=== PATIENT | female | born 1940 | race Caucasian/White ===

== ENCOUNTER 2020-07-29 06:24 | Emergency (ER) | payer MEDICARE, SELFPAY ==
[2020-07-29] VITALS (24 sets, daily range): BP systolic 147–187; BP diastolic 76–94; PULSE 74–89; RESP 11–25; TEMP 36.4; O2SAT 60–100
--- NOTE | ~2020-07-29 | XR_ITS ---
EXAMINATION: XR chest 1V DATE: 07/29/2020 07:09 INDICATION: Altered mental status. TECHNIQUE: A single frontal view of the chest was obtained. COMPARISON: Chest single view 08/26/2018 FINDINGS: A calcified right lung nodule is consistent with old granulomatous disease. No pleural effu gay or pneumothorax. The heart size is normal. IMPRESSION: 1. No acute cardiopulmonary disease. Reviewed, dictated and finalized at location A. HING PATTERNMAKER
--- NOTE | ~2020-07-29 | CT_ITS ---
EXAMINATION: CT brain wo con DATE: 07/29/2020 07:09 INDICATION: Altered mental status. TECHNIQUE: Computed tomography (CT) of the head was performed without intravenous contrast. The mA wa s adjusted according to patient size. Iterative reconstruction technique was employed. The dose-lengt h product was 681.00 mGy-cm. COMPARISON: Head CT 08/26/2018 FINDINGS: There is no intracranial hemorrhage, acute infarction, or abnormal intracranial mass lesion . There are scattered areas of low attenuation in the cerebral white matter, which is within normal l imits for the patient's age. The ventricles are normal in size. The mastoid air cells are normal. The paranasal sinuses are clear. The orbits are normal. IMPRESSION: 1. Normal aging brain. Reviewed, dictated and finalized at location A. ACER OPERATOR IMPRESSION: 1. Normal aging brain.
[2020-07-29 07:00] LABS: Basophils Percent Auto 0.4 % (0.2-1.2); Eosinophils Absolute Auto 0.1 K/mm3 (0-0.3); Eosinophils Percent Auto 0.9 % (0-4.4); Hematocrit 34.8 % (37.0-47.0); Hemoglobin 11.8 g/dL (12.0-15.0); Immature Granulocyte Absolute 0.02 K/mm3 (0.00-0.031); Immature Granulocyte Percent A 0.2 % (0-0.5); Lymphocytes Absolute Auto 5.99 K/mm3 (0.9-3.2); Lymphocytes Percent Auto 62.2 % (18.3-44.2); Mean Corpuscular HGB Conc 33.9 g/dl (32-36); Mean Corpuscular Hemoglobin 32.7 pg (26-34); Mean Corpuscular Volume 96.4 fl (80-100); Mean Platelet Volume 9.5 fl (7.4-10.4); Monocytes Absolute Auto 0.4 K/mm3 (0.1-0.6); Monocytes Percent Auto 3.6 % (2.6-8.5); Neutrophils Absolute Auto 3.1 K/mm3 (1.3-6.7); Neutrophils Percent Auto 32.7 % (45.5-73.1); Platelet Count Result 129 k/mm3 (150-375); Red Blood Count 3.61 M/mm3 (4.2-5.4); Red Cell Distribution Width 13.6 % (11.5-14.5); White Blood Count 9.6 K/mm3 (4.5-10.0)
[2020-07-29 07:08] LABS: Anisocytosis 1+ (NORMAL); Ovalocytes 1+ (NORMAL); Platelet Estimate Adequate (Adequate)
[2020-07-29 07:10] LABS: Prothrombin Time 13.6 Seconds (11.1-14.7)
[2020-07-29 07:11] LABS: Partial Thromboplastin Time 29.6 SECONDS (22.3-36.8)
[2020-07-29 07:12] LABS: Albumin Level 3.9 g/dL (3.5-5.1); Alkaline Phosphatase 61 U/L (38-126); Anion Gap 3 mmol/L (8-16); Aspartate Amino Transferase 21 U/L (14-36); Blood Urea Nitrogen 19 mg/dL (7-17); Carbon Dioxide 35 mmol/L (22-30); Chloride 103 mmol/L (98-107); Estimated Glomerular Filt Rate > 60; Glucose 176 mg/dL (65-105); Lactic Acid Reflex 0.7 mmol/L (0.7-2.1); Sodium 141 mmol/L (137-145)
[2020-07-29 07:18] LABS: Alanine Aminotransferase < 4 U/L (4-35)
--- NOTE | 2020-07-29 07:23 | ED.AMS ---
HPI - Altered Mental Status General Chief Complaint: Altered Mental Status Stated Complaint: AMS Time Seen by Provider: 07/29/20 07:00 Source: EMS Mode of arrival: EMS Limitations: dementia History of Present Illness HPI narrative: This is 79 year old female with history of dementia who presents for evaluation of altered mental status for 2 days. Patient is able to state her name and that she is in a hospital. There is no one at bedside to state how she is confused. She denies any pain. She states she is here for a urine test as nursing staff is performing a straight catheterization. She denies nausea, vomiting, fever, chills, chest pain, shortness of breath. Related Data Home Medications Medication Instructions Recorded Confirmed carbidopa-levodopa 1 tablet PO BID 07/29/20 donepezil [Aricept] 10 mg PO HS 07/29/20 levothyroxine 25 mcg PO DAILY 07/29/20 loratadine 10 mg PO DAILY 07/29/20 Allergies Allergy/AdvReac Type Severity Reaction Status Date / Time No Known Allergies Allergy Mild Unverified 08/26/18 07:10 Review of Systems Review of Systems: All systems reviewed & are unremarkable except as noted in HPI and below Constitutional: Constitutional: Denies chills and Denies fever(s) Cardiovascular: Cardiovascular: Denies chest pain Respiratory: Respiratory: Denies cough and Denies dyspnea Gastrointestinal: Gastrointestinal: Denies abdominal pain, Denies diarrhea, Denies nausea and Denies vomiting Musculoskeletal: Musculoskeletal: Denies back pain Neurologic: Denies headache(s) [facility] Past Medical History Medical History (Updated 07/29/20 @ 10:16 by Felicita Bolaños MD) Dementia Hypothyroid Surgical History Surgical History (Updated 07/29/20 @ 07:31 by Felicita Bolaños MD) Surgical history unknown Social History Social History (Updated 07/29/20 @ 18:54 by Felicita Bolaños MD) Smoking status: Unknown if ever smoked Exam Const: General: no acute distress and alert Other: oriented to person, place HENMT: Head: normocephalic and atraumatic Face and sinus: face symmetric Mouth: Yes Normal oral and palatal mucosa present, Yes lip normal, Yes oropharynx normal and Yes moist mucous membranes Eyes: EOM: EOMs intact bilaterally Chest: Chest palpation & inspection: normal inspection of the chest Resp: Effort & Inspection: normal respiratory effort and no retractions Auscultation: clear to auscultation bilaterally Cardio: Rate: regular rate Rhythm: regular rhythm Heart sounds: no murmurs GI: GI Palp: Yes Soft to palpation, No Tenderness to palpation present (GI) and No Guarding due to palpation present (GI) Auscultation: normal bowel sounds Skin: General skin exam: normal color Rashes: no rashes Neuro: General: moves all extremities, no meningeal signs and CN's II-XI intact bilaterally Psych: Mental Status: mental status grossly normal Affect: normal affect Course Reevaluation(s) Reevaluation #1: I walked into room and patient was standing at end of bed without clothes on. Her bed was wet. I placed her in a chair. She was able to tell me she lives with her . Nursing staff was able to speak with patient's daughter who states patient has dementia and she has been on progressive decline. They think patient just got up set last night. They are not interested in placement at this time. Labs and imaging are unremarkable. Date: 07/29/20 Time: 09:56 Vital Signs Vital signs: Vital Signs Temperature 97.6 F 07/29/20 06:23 Pulse Rate 78 07/29/20 06:23 Respiratory Rate 18 07/29/20 06:23 Blood Pressure 167/78 H 07/29/20 06:23 Pulse Oximetry 100 07/29/20 06:23 Temperature 97.6 F 07/29/20 06:23 Pulse Rate 87 07/29/20 09:31 Respiratory Rate 17 07/29/20 09:31 Blood Pressure 177/86 H 07/29/20 09:31 Pulse Oximetry 60 L 07/29/20 07:30 MDM - Altered Mental Status Lab Data Attestation: I reviewed the patient's lab res
[2020-07-29 07:31] LABS: Add Urine Microscopic? YES; Appearance Urine Clear (Clear); Bilirubin Urine Negative (Negative); Blood Urine 1+ (Negative); Color Urine Yellow (Yellow); Glucose Urine UA Negative (Negative); Ketones Urine Negative (Negative); Leukocyte Esterase Ur Negative LEU/UL (Negative); Mucus Urine Rare /lpf; Nitrate Urine Negative (Negative); Protein Urine Negative (Negative); Specific Grav Ur 1.014 (1.001-1.035); Squamous Epithelial Cell Urine Rare /hpf (Few); WBC Urine 0-3 /hpf
[2020-07-29] MEDS: LACTATED RINGERS 1,000 ML 999 ML IV CONT (07:46)
[2020-07-29 07:59] LABS: Lipase 247 U/L (23-300)
--- NOTE | 2020-07-29 08:06 | ECG_ITS ---
Measurements Intervals [place] Rate: 86 P: 61 RI: 139 QRS: -43 QRSD: 93 T: 51 QT: 337 QTc: 404 Interpretive Statements SINUS RHYTHM LEFT AXIS DEVIATION DELAYED PRECORDIAL R/S TRANSITION BASELINE ARTIFACT- I, II, III, AVR, AVL, AVF BORDERLINE ECG Electronically Signed On 07-29-2020 11:16:30 CAREER COACH by Ezequiel Goddard D.O.
--- NOTE | 2020-07-29 09:40 | PC.NURSE ---
pts daughter toby contacted. states her mother has history of alzheimers that has been worsening. states behavior is worse at night. has talked about family that lives in her basement. per daughter pt was restless last night and was up all night turning all the lights all on in the house. states they have considered nh placement but states she does worse in unfamiliar surroundings.
--- NOTE | 2020-07-29 09:50 | PC.NURSE ---
pts daughter contacted. will send son to come worm picker pt for discharge.
== END 2020-07-29 10:45 | disposition home or self-care (01) ==
PROVIDERS: Emergency Medicine; Emergency Provider General Practice; PCP Nurse Practitioner Adult Health
DX: F03.90 Unspecified dementia, unspecified severity, without behavioral disturbance, psychotic disturbance, mood disturbance, and anxiety (principal); R41.0 Disorientation, unspecified; E03.9 Hypothyroidism, unspecified; R94.31 Abnormal electrocardiogram [ECG] [EKG]
CPT/HCPCS: 36415; 70450; 71045; 80053; 81001; 83605; 83690; 85025; 85610; 85730; 87040; 93005; 96360; 99284; J7120

== ENCOUNTER 2020-11-12 15:21 | Inpatient (IN) | payer MEDICARE, SELFPAY ==
--- NOTE | ~2020-11-12 | MR_ITS ---
EXAMINATION: MR brain/brain stem wo/w con EXAM DATE: 11/14/2020 13:18 INDICATION: Confusion, altered mental status. TECHNIQUE: Magnetic resonance imaging (MRI) of the brain/brain stem obtained without contrast. Sagit jose T1, axial diffusion, gradient echo (T2*), T1, T2, FLAIR sequences obtained. Patient was then inj ected with 9 cc intravenous Multihance contrast. Axial and coronal postcontrast T1 weighted sequences obtained. Comparison is made to prior examination from 12/03/2017. FINDINGS: There are no areas of restricted diffusion to suggest acute infarction. There is no acute hemorrhage seen on the T2*, a hemosiderin sensitive sequence. No intraparenchymal brain mass lesion. There is minimal periventricular and subcortical T2/FLAIR signal hyperintensity, nonspecific but pro bably related to small vessel ischemic disease (microangiopathy). There is mild to moderate promine nce of the sulci and ventricles related to cerebral atrophy. There are no extra-axial collections. Flow voids are seen in the cerebral arteries on the T2-weighted sequences consistent with their expe cted patency. The orbits are unremarkable. Soft tissue is unremarkable. There are no areas of abno rmal enhancement on the postcontrast images. IMPRESSION: 1. No acute intracranial findings. 2. Chronic age related findings. Reviewed, dictated and finalized at location B.
--- NOTE | ~2020-11-12 | XR_ITS ---
MODIFIED ESOPHAGRAM HISTORY: Dysphagia. TECHNIQUE: Modified barium esophagram was performed by speech pathologist under radiologist fluorosco pic guidance. This was recorded on tape. The exam was reviewed on 11/13/2020 14:12 CDT. The DAP for this procedure was 3.2 Gycm2. Fluoroscopy time is 3.8 minutes. FINDINGS: Lateral projection of the cervical spine demonstrates normal alignment. Oral stage within normal limits. During pharyngeal stage there is reduced laryngeal elevation, reduced tongue base ret raction, reduced pharyngeal squeeze, vallecular residue, piriform residue in laryngeal penetration. N o aspiration identified.. IMPRESSION: 1: Laryngeal penetration without aspiration. 2: Please refer to speech pathologist report for additional detail. Reviewed, dictated and finalized at location A.
--- NOTE | ~2020-11-12 | CT_ITS ---
EXAMINATION: CT brain wo con DATE: 11/12/2020 16:34 INDICATION: Altered mental status TECHNIQUE: Computed tomography (CT) of the head was performed without intravenous contrast. The mA wa s adjusted according to patient size. Iterative reconstruction technique was employed. Exam dose: 60 5.33 mGy-cm total exam DLP. COMPARISON: 07/29/2020 CT brain FINDINGS: Bilateral vertebral and carotid siphon internal carotid artery calcifications. There is non specific diminished attenuation of the cerebral white matter, likely due to chronic small vessel isch emic changes. No intracranial mass lesion or hemorrhage or cerebrovascular accident is detected. There is cerebral volume loss. No midline shift or mass effect effect. No subdural or epidural hematoma. No fracture or bone destruction of the cranial vault. The frontal sinuses are not developed. The paranasal sinuses otherwise are normally developed and aer ated. The mastoid air cells are normally developed and aerated. IMPRESSION: Cerebral atherosclerosis and chronic small vessel ischemic changes of the cerebral white matter No acute intracranial finding Reviewed, dictated and finalized at Location A. Reviewed, dictated and finalized at location A.
--- NOTE | ~2020-11-12 | XR_ITS ---
EXAMINATION: XR chest 1V EXAM DATE: 11/12/2020 16:44 INDICATION: Transient alteration of awareness, slurred speech. History dementia. TECHNIQUE: Portable AP frontal chest x-ray was obtained. Comparison is made to prior examination from 07/29/2020. FINDINGS: There is right upper lobe granuloma. The lungs are otherwise clear. There are no pleural e ffusions. Cardiac silhouette is prominent but magnified on this AP technique. There is no pneumoth orax suspected. The bones and soft tissues are unremarkable. IMPRESSION: No acute cardiopulmonary findings. Reviewed, dictated and finalized at location B.
--- NOTE | ~2020-11-12 | CT_ITS ---
EXAMINATION: CT cervical spine [facility] EXAM DATE: 11/13/2020 11:35 INDICATION: Unwitnessed fall. Stiff neck. TECHNIQUE: Spiral CT of the cervical spine was performed without contrast. Axial images were reviewe d. Coronal and sagittal reformatted images cervical spine were also reviewed. The dose-length produc t (DLP) for this examination was 120.45 mGy-cm. The exposure was tailored according to patient size (auto mA exposure control), and iterative reconstruction (ASIR) was used as additional dose reduction technique. Comparison is made to prior examination from 08/26/2018. FINDINGS: Thoracic kyphosis with exaggerated cervical lordosis. There is mild to moderate disc disea se at C4-5 and 5-6, mild at C2-3 and T3-4. There are no acute fractures identified. The odontoid proc ess is intact. The lateral masses of C1 line up with C2. Level by level evaluation: C2-C3: There is a mild diffuse disc bulge. Uncovertebral joint arthropathy: Mild right. Facet joint arthropathy: Moderate right. Neural foraminal stenosis: No stenosis. Central canal stenosis: No stenosis. C3-C4: Mild disc osteophyte complex asymmetric to the right. Uncovertebral joint arthropathy: Moderate right. Facet joint arthropathy: Moderate right, mild to moderate left. Neural foraminal stenosis: Moderate right. Central canal stenosis: Mild right sided. C4-C5: Mild disc osteophyte complex asymmetric to the right. Uncovertebral joint arthropathy: Moderate right, mild left. Facet joint arthropathy: Moderate to severe, but fused right, mild to moderate left. Neural foraminal stenosis: Mild to moderate right. Central canal stenosis: Mild right sided. C5-C6: There is mild posterior disc osteophyte complex. Uncovertebral joint arthropathy: Moderate bilateral. Facet joint arthropathy: Moderate to severe right, moderate left. Neural foraminal stenosis: Mild to moderate left, mild right. Central canal stenosis: Mild. C6-C7: Disc does not extend beyond the endplate margin. Uncovertebral joint arthropathy: Mild bilateral. Facet joint arthropathy: Moderate to severe right, moderate left. Neural foraminal stenosis: No stenosis. Central canal stenosis: No stenosis. C7-T1: Disc does not extend beyond the endplate margin. Uncovertebral joint arthropathy: None. Facet joint arthropathy: Moderate to severe bilateral. Neural foraminal stenosis: No stenosis. Central canal stenosis: No stenosis. Difficult to appreciate any significant interval change compared to 2019. IMPRESSION: 1. No acute cervical findings. 2. Some advanced arthropathy. Reviewed, dictated and finalized at location B.
--- NOTE | ~2020-11-12 | XR_ITS ---
EXAMINATION: XR barium swallow modified DATE: 11/18/2020 11:49 INDICATION: Aspiration, dysphagia TECHNIQUE: Modified barium esophagram was performed by myself to administered fluoroscopy, in conjun ction with speech pathologist who administered barium in varying consistencies as per speech patholog ist documentation. This was recorded on tape. A single fluoroscopic spot image was recorded. The DAP for this procedure was 1.333 Gycm2. Fluoroscopy exposure time was 2.1 minutes. FINDINGS: Oral stage: Adequate function. Pharyngeal phase: Adequate function. Laryngeal penetration: Present within liquids and pudding. Aspiration: None. Laryngeal sensitivity: Absent. IMPRESSION: Laryngeal penetration without definite aspiration identified. Please refer to speech path ologist findings and specific feeding recommendations. Reviewed, dictated and finalized at location A. IMPRESSION: Laryngeal penetration without definite aspiration identified. Pleas e refer to speech pathologist findings and specific feeding recommendations.
--- NOTE | ~2020-11-12 | US_ITS ---
EXAMINATION: US carotid duplex BI DATE: 11/14/2020 09:52 INDICATION: Confusion TECHNIQUE: Grayscale, color Doppler, and pulsed Doppler images of the cervical carotid arteries were obtained. The degree of vessel stenosis is placed in one of the following categories: normal, <50%, 5 0-69%, >=70% but less than near-occlusion, near-occlusion, or total occlusion. Note that percent sten osis relative to normal distal artery lumen diameter is indirectly measured from velocity measurement s as described by Carlos, et al. Radiology 2003; 229:340-346. Notes: Normal: Peak systolic velocity <125 centimeters/sec and no plaque <50%. Peak systolic velocity <125 ( EDV <40; ICA/CCA PSV ratio <2.0; used these factors only a tandem lesions or low cardiac output or co ntralateral disease) 50-69 %: PSV 125-230 (EDV 40-100; ratio 2-4) >= 70% but less than near occlusion: PSV greater than 230 (EDV > 100; ratio> 4.0) Near Occlusion: PSV that is variable; markedly narrowed lumen Occlusion: Absent flow on color/spectral Doppler and no lumen on gallo scale. COMPARISON: None. FINDINGS: RIGHT: The right common carotid artery (CCA) peak systolic velocity (PSV) is 60 cm/s. The right internal car otid artery (ICA) PSV is 58 cm/s. The right ICA end-diastolic velocity (EDV) is 12 cm/s. The right IC A/CCA PSV ratio is 1.0. The external carotid artery (ECA) PSV is 90 cm/s. There is antegrade flow in the right vertebral artery. LEFT: The left CCA PSV is 63 cm/s. The left ICA PSV is 80 cm/s. The left ICA EDV is 16 cm/s. The left ICA/C CA PSV ratio is 1.3. The ECA PSV is 60 cm/s. There is antegrade flow in the left vertebral artery. IMPRESSION: 1. Less than 50% stenosis in the right internal carotid artery by sonographic criteria. 2. Less than 50% stenosis in the left internal carotid artery by sonographic criteria. Reviewed, dictated and finalized at location A. IMPRESSION: 1. Less than 50% stenosis in the right internal carotid artery by sonographic marion galloway. 2. Less than 50% stenosis in the left internal carotid artery by sonographic ed lo.
[2020-11-12 15:27] VITALS: BP 107/49; PULSE 72; RESP 13; TEMP 36.3; O2SAT 98
--- NOTE | 2020-11-12 16:15 | ECG_ITS ---
Measurements Intervals [place] Rate: 71 P: 60 VA: 164 QRS: -19 QRSD: 96 T: 48 QT: 421 QTc: 457 Interpretive Statements SINUS RHYTHM NORMAL ECG Electronically Signed On 11-12-2020 17:11:10 CDT by Ezequiel Goddard D.O.
--- NOTE | 2020-11-12 16:41 | ED.GENADULT ---
HPI - General Adult General Chief complaint: Altered Mental Status Stated complaint: AMS,?FALL Time Seen by Provider: 11/12/20 16:02 Source: family and RN notes reviewed History of Present Illness HPI narrative: Patient is a 80 y/o female brought in by EMS for altered mental status. Patient is found by family around 3:00 PM on the floor. It's unknown how long she has been confused. Patient is unable to provide any history. Related Data Home Medications Medication Instructions Recorded Confirmed carbidopa-levodopa 1 tablet PO BID 07/29/20 11/12/20 donepezil [Aricept] 10 mg PO HS 07/29/20 11/12/20 levothyroxine 25 mcg PO DAILY 07/29/20 11/12/20 loratadine 10 mg PO DAILY 07/29/20 11/12/20 Allergies Allergy/AdvReac Type Severity Reaction Status Date / Time No Known Allergies Allergy Mild Verified 11/12/20 22:35 Review of Systems Review of Systems: ROS unobtainable: Yes unobtainable due to mental status [facility] Past Medical History Medical History Anemia Chronic idiopathic thrombocytopenia Closed right hip fracture (07/2018) Treated nonsurgically. Dementia Diet-controlled diabetes mellitus Hypothyroidism Parkinsons disease Tobacco use Surgical History Surgical History (Updated 11/12/20 @ 21:08 by Beatriz Garcia PA-C) Surgical history unknown Family History Family History (Updated 11/12/20 @ 22:08 by So [place] RN) Sibling Cancer Social History Social History (Updated 11/13/20 @ 01:05 by Beatriz Garcia PA-C) Social History: Surrogate decision maker: Angelito Graham, or Doris Midland, niece. Code status: Full code. Smoking status: Former smoker Alcohol intake: never Substance use: never Additional living arrangements comments: Resides in [place] with her . She tells me she has 5 children. 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 Spiritual care concerns: No Exam Const: General: no acute distress and well developed Orientation/consciousness: oriented to person, confusion and lethargic HENMT: Head: normocephalic Ears: external ears normal General nose exam: Normal external nose present Eyes: General: appearance normal, both eyes and all related structures Conjunctivae: conjunctivae normal Neck: Neck: normal visual inspection and full ROM Chest: Chest palpation & inspection: normal inspection of the chest and no tenderness Resp: Effort & Inspection: normal respiratory effort Auscultation: clear to auscultation bilaterally Cardio: Rate: regular rate Rhythm: regular rhythm GI: GI Palp: No abdominal tenderness and Yes Soft to palpation Skin: General skin exam: normal color and turgor normal Neuro: General: confusion and other (does not answer questions or follow commands) Cognition (Neuro): abnormal cognition Extrem: General: normal to inspection, full ROM and no pedal edema Psych: Affect: Blunted affect present Course Consultations Consultation #1: Discussed with ALIA Henderson, who agrees to admit. Date: 11/12/20 Time: 18:34 Vital Signs Vital signs: Vital Signs Temperature 36.3 C L 11/12/20 15:27 Pulse Rate 72 11/12/20 15:27 Respiratory Rate 13 11/12/20 15:27 Blood Pressure 107/49 L 11/12/20 15:27 Pulse Oximetry 98 11/12/20 15:27 Temperature 36.1 C L 11/13/20 08:00 Pulse Rate 75 11/13/20 08:00 Respiratory Rate 18 11/13/20 08:00 Blood Pressure 154/65 H 11/13/20 08:00 Pulse Oximetry 93 11/13/20 09:21 Medical Decision Making Vital Signs Vital Signs: Vital Signs Temperature 36.3 C L 11/12/20 15:27 Pulse Rate 72 11/12/20 15:27 Respiratory Rate 13 11/12/20 15:27 Blood Pressure 107/49 L 11/12/20 15:27 Pulse Oximetry 98 11/12/20 15:27 Temperature 36.1 C L 11/13/20 08:00 Pulse Rate 75 11/13/20 08:00 Respiratory Rate 18 11/13/20 08:00 Blood Pressure 154/65 H 11/13/20 08:00 Pulse Oximetry 93 11/13/20 09:21 Lab Data Result d
[2020-11-12 17:21] LABS: Basophils Percent Auto 0.3 % (0.2-1.2); Eosinophils Absolute Auto 0.1 K/mm3 (0-0.3); Eosinophils Percent Auto 0.8 % (0-4.4); Hematocrit 31.2 % (37.0-47.0); Immature Granulocyte Absolute 0.03 K/mm3 (0.00-0.031); Immature Granulocyte Percent A 0.3 % (0-0.5); Lymphocytes Absolute Auto 4.55 K/mm3 (0.9-3.2); Lymphocytes Percent Auto 49.8 % (18.3-44.2); Mean Corpuscular HGB Conc 32.1 g/dl (32-36); Mean Corpuscular Volume 96.6 fl (80-100); Mean Platelet Volume 9.5 fl (7.4-10.4); Monocytes Absolute Auto 0.3 K/mm3 (0.1-0.6); Monocytes Percent Auto 3.7 % (2.6-8.5); Neutrophils Absolute Auto 4.1 K/mm3 (1.3-6.7); Neutrophils Percent Auto 45.1 % (45.5-73.1); Platelet Count Result 145 k/mm3 (150-375); Red Blood Count 3.23 M/mm3 (4.2-5.4); Red Cell Distribution Width 14.7 % (11.5-14.5); White Blood Count 9.1 K/mm3 (4.5-10.0)
--- NOTE | 2020-11-12 17:25 | PC.NURSE ---
Provided update to patient's daughter Doris [phone]
[2020-11-12 17:30] LABS: Albumin Level 3.7 g/dL (3.5-5.1); Alkaline Phosphatase 89 U/L (38-126); Anion Gap 4 mmol/L (8-16); Aspartate Amino Transferase 18 U/L (14-36); Bilirubin,Total 1.3 mg/dL (0.2-1.3); Blood Urea Nitrogen 21 mg/dL (7-17); Calcium 8.9 mg/dL (8.4-10.2); Carbon Dioxide 30 mmol/L (22-30); Chloride 105 mmol/L (98-107); Estimated CRCL calculation 52 ml/min; Estimated Glomerular Filt Rate > 60; Glucose 216 mg/dL (65-105); Potassium 4.1 mmol/L (3.4-5.0); Sodium 139 mmol/L (137-145)
[2020-11-12 17:42] LABS: Atypical Lymphocytes Present; Smudge Cells FEW
[2020-11-12 17:49] VITALS: BP 136/66; PULSE 67; RESP 16; O2SAT 98
[2020-11-12 18:07] LABS: Alanine Aminotransferase < 4 U/L (4-35)
[2020-11-12 18:08] LABS: Add Urine Microscopic? YES; Appearance Urine Cloudy (Clear); Bacteria Urine 1+ /hpf; Bilirubin Urine Negative (Negative); Blood Urine 1+ (Negative); Color Urine Amber (Yellow); Glucose Urine UA 1+ mg/dL (Negative); Ketones Urine Trace mg/dL (Negative); Leukocyte Esterase Ur 3+ LEU/UL (Negative); Mucus Urine Few /lpf; Nitrate Urine Negative (Negative); Protein Urine 2+ mg/dL (Negative); Specific Grav Ur 1.024 (1.001-1.035); Squamous Epithelial Cell Urine Rare /hpf (Few); WBC Urine >75 /hpf
[2020-11-12 19:37] VITALS: BP 143/73; PULSE 67; RESP 13; O2SAT 98
[2020-11-12 22:00] VITALS: BP 145/63; PULSE 67; RESP 14; TEMP 35.8; O2SAT 99; BMI 19.5
[2020-11-12 22:13] VITALS: PULSE 67
--- NOTE | 2020-11-12 22:18 | ADMGEN ---
This patient, Chasity Graham, was admitted to Medical Room 255-01. Patient/family oriented to hospital policies and general routines including ID bracelet, bed and alarms, visiting hours, pain management, procedures, bathroom and other care routines, personal items, smoking policy, room service/diet, and visiting hours. Information on how to activate the Rapid Response Team has been discussed. Patient/Family are encouraged to report perceived risks to care and to ask questions if they do not understand what they are told or what they should do.
--- NOTE | 2020-11-12 22:45 | PM.IMHP ---
H&P: HPI History of Present Illness Date/Time: 11/12/20 22:45 Chief Complaint: Altered mental status, found down. Narrative: This is a 80-year-old female dementia, Parkinson's, diet-controlled diabetes, anemia, and hypothyroidism who presented to the emergency department earlier today via EMS from home for evaluation of altered mental status after she was found down on the ground at around 15:00. The patient is a poor historian and due to the late hour I have not been able to get a hold of family and thus a majority of the following history is obtained via a review of her electronic medical records. At baseline she is reportedly alert and oriented x4 but has chronically slurred speech. It is my understanding that she was found on the floor by a family member not long prior to arrival and they estimate she had been on the floor for approximately 30 minutes time. The patient tells me that she feels ?lousy? and remembers having a fall though she can not provide me with any specifics. She denies having injured herself in the fall but thinks she may have bumped her head. With further prompting she tells me ?I think I was dizzy? prior to the fall though she does not think that she had any loss of consciousness. She has no other complaints at this time specifically denies fever, chills, sweats, headache, neck pain, sore throat, rash, auditory and visual change (although she tells me that her vision is blurry on occasion) focal weakness, paresthesias, chest pain, pleuritic pain, palpitations, shortness of breath, nausea, vomiting, and diarrhea. She has mild dysuria but no hematuria, urinary frequency, or urgency. Review of Systems Review of Systems: Narrative: Twelve systems were reviewed with pertinent positives and negatives as per HPI. The accuracy of such is questionable however given her underlying dementia and increasing confusion from baseline. [facility] Past Medical History Medical History Anemia Chronic idiopathic thrombocytopenia Closed right hip fracture (07/2018) Treated nonsurgically. Dementia Diet-controlled diabetes mellitus Hypothyroidism Parkinsons disease Tobacco use Surgical History Surgical History (Updated 11/12/20 @ 21:08 by Beatriz Garcia PA-C) Surgical history unknown Family History Family History (Updated 11/12/20 @ 22:08 by So [place] RN) Sibling Cancer Social History Social History (Updated 11/13/20 @ 01:05 by Beatriz Garcia PA-C) Social History: Surrogate decision maker: Angelito Graham, or Doris Justin, niece. Code status: Full code. Smoking status: Former smoker Alcohol intake: never Substance use: never Additional living arrangements comments: Resides in [place] with her . She tells me she has 5 children. 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 Spiritual care concerns: No Meds Home Medications and Allergies Home Medications Medication Instructions Recorded Confirmed Type carbidopa-levodopa 1 tablet PO BID 07/29/20 History donepezil [Aricept] 10 mg PO HS 07/29/20 History levothyroxine 25 mcg PO DAILY 07/29/20 History loratadine 10 mg PO DAILY 07/29/20 History Allergies Allergy/AdvReac Type Severity Reaction Status Date / Time No Known Allergies Allergy Mild Verified 11/12/20 22:35 Vital Signs Vital Signs - 24 hr 11/12/20 15:27 11/12/20 17:49 11/12/20 19:37 Temperature 97.4 F L Pulse Rate 72 67 67 Respiratory Rate 13 16 13 Blood Pressure 107/49 L 136/66 143/73 H Pulse Oximetry 98 98 98 Exam Narrative: Exam Narrative: General: Thin, frail, chronically ill-appearing female sitting up in bed. Weight: 40.6 kilograms. BMI: 19.6. HEENT: Normocephalic, atraumatic. PERRL, EOMI. Sclerae anicteric. Mouth is extremely dry with chapped lips. Oropharynx not visualized. Fair dentition. Neck: The patient frequently extends her neck and looks upwards. Neck is somewhat stiff laxmieve
[2020-11-13] VITALS (9 sets, daily range): BP systolic 154–167; BP diastolic 65–88; PULSE 69–81; RESP 18–26; TEMP 35.9–37.1; O2SAT 93–100
[2020-11-13] MEDS: SODIUM CHLORIDE 0.9% IV 1,000 ML 100 ML IV CONT (01:40)
[2020-11-13 05:37] LABS: Mean Corpuscular HGB Conc 32.4 g/dl (32-36); Mean Corpuscular Hemoglobin 31.7 pg (26-34); Mean Platelet Volume 9.5 fl (7.4-10.4); Platelet Count Result 146 k/mm3 (150-375); Red Blood Count 3.47 M/mm3 (4.2-5.4); Red Cell Distribution Width 14.6 % (11.5-14.5)
[2020-11-13 05:46] LABS: Albumin Level 3.7 g/dL (3.5-5.1); Alkaline Phosphatase 81 U/L (38-126); Anion Gap 5 mmol/L (8-16); Aspartate Amino Transferase 20 U/L (14-36); Blood Urea Nitrogen 18 mg/dL (7-17); Calcium 8.9 mg/dL (8.4-10.2); Carbon Dioxide 32 mmol/L (22-30); Chloride 105 mmol/L (98-107); Estimated CRCL calculation 59 ml/min; Estimated Glomerular Filt Rate > 60; Glucose 162 mg/dL (65-105); Sodium 142 mmol/L (137-145)
[2020-11-13 11:16] LABS: Alanine Aminotransferase < 4 U/L (4-35)
--- NOTE | 2020-11-13 11:29 | PCPTNOTE ---
Attempted PT eval. Pt gone to X ray. Will try again at later time.
--- NOTE | 2020-11-13 11:58 | PCSTNOTE ---
Please refer to the Modified Barium Swallow Evaluation in the EMR.
--- NOTE | 2020-11-13 15:42 | PM.IMPN ---
Progress Note: A&P Assessment and Plan (1) Fall: Code(s): W19.XXXA - Unspecified fall, initial encounter Status: Acute Assessment and Plan: Patient found down at home. Brain CT showing no acute findings. Cervical CT also showing no acute findings. Patient doing well with therapy. Continue PT/OT. (2) Confusion: Code(s): R41.0 - Disorientation, unspecified Status: Acute Assessment and Plan: The patient presents to ED for evaluation of confusion after she was found down on the ground. Reportedly she is alert and oriented at 4 at baseline with slurred speech. Spoke with . He states patient is falling frequently and has had speech problems since a fall 1 year ago. Dtr not available. Consider new CVA given the dysphagia. Check MRI brain, etc. Neuro consult (3) Dysphagia: Code(s): R13.10 - Dysphagia, unspecified Status: Acute Assessment and Plan: She exhibited trace to severe penetration to above the VC with almost every consistency. She had signifincat penetration at the level of the epiglottis with mildly thick and moderately thick liquids. Patient appears to be at significant risk for aspiration and NPO status was recommended. CXR was clear so has been able to protect her airway. wasnt sure if patient would want a GTube. Start IV fluids. Dtr not available (4) Urinary tract infection: Qualifiers: Hematuria presence: without hematuria Urinary tract infection type: site unspecified Qualified Code(s): N39.0 - Urinary tract infection, site not specified Code(s): N39.0 - Urinary tract infection, site not specified Status: Acute Assessment and Plan: UA noted. UCx collected. Continue Rocephin (5) Elevated blood pressure reading: Code(s): R03.0 - Elevated blood-pressure reading, without diagnosis of hypertension Status: Acute Assessment and Plan: Patient's blood pressure was reviewed on 11/13. Blood pressure remains elevated at times. Patient may have had a CVA so will allow for elevated BP for now. Will continue to monitor (6) Diet-controlled diabetes mellitus: Code(s): E11.9 - Type 2 diabetes mellitus without complications Status: Acute Assessment and Plan: The patient's blood glucose was reviewed on 11/13. Not on medications at home for DM. Glucose remains well controlled. Start AccuCheks covering with sliding scale. Hypoglycemia protocol available as needed. (7) Dementia: Code(s): F03.90 - Unspecified dementia without behavioral disturbance Status: Acute Assessment and Plan: Patient with hx of dementia. Suspect this is worsening. Aricept on hold since she cannot swallow safely. (8) Hypothyroidism: Code(s): E03.9 - Hypothyroidism, unspecified Status: Acute Assessment and Plan: TSH okay. Rayn hold Synthroid for now. 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 No felt to be clinically significant. Follow (10) Parkinsons disease: Code(s): G20 - Parkinson's disease Status: Acute Assessment and Plan: Stable. Sinemet on hold. Resume when able. Subjective Date/time seen: 11/13/20 15:42 Interval history: 80yo female with dementia, DM and Parkinson here for altered mental status and being found down. Patient awake and alert but has garbled speech and thus unable to provide hx. She had a MBS today but had penetration of almost all consistencies to above the VC; ST recommended NPO status. Patikevinn was able to be up with therapy today. Review of Systems Review of Systems: ROS unobtainable: Yes unobtainable due to mental status Exam Narrative: Exam Narrative: AF 96.6 155/88 75 18 100% ra
[2020-11-13] MEDS: KCL 20 MEQ/D5/0.9% SOD CHL 1,000 ML 70 ML IV CONT (16:53)
[2020-11-13] MEDS: ASPIRIN 300 MG SUPPOSITORY RECTAL (16:54)
[2020-11-13 17:27] LABS: Glucose Point of Care 107 mg/dl (65-105)
[2020-11-13 22:24] LABS: Glucose Point of Care 143 mg/dl (65-105)
[2020-11-14] VITALS (7 sets, daily range): BP systolic 142–162; BP diastolic 55–88; PULSE 60–76; RESP 16–181; TEMP 36.1–37.5; O2SAT 96–100
--- NOTE | 2020-11-14 | ECHO_ITS ---
Patient Info Name: Chasity Graham Age: 80 years : 1940 Gender: Female Ht: 62 in Wt: 107 lbs BSA: 1.45 m2 HR: 71 bpm BP: 142 / 55 mmHg Heart Rhythm: Sinus Rhythm Technical Quality: Good Exam Date: 11/14/2020 11:33 AM Exam Location: [facility] Patient Status: Inpatient Admit Date: 11/12/2020 Staff Ordering Physician: Josue Dougherty MD Animal Therapist: William Isaacs, HILDACS, RT Attending Provider: Brittney Lane MD Exam Type: CA echo doppler color flow Study Info Indications R27.8 - Other lack of coordination Complete two-dimensional, color flow and Doppler transthoracic echocardiogram is performed. Strain analysis performed. Summary 1. Complete two-dimensional, color flow and Doppler transthoracic echocardiogram is performed. 2. Normal left ventricular size and thickness. Good left ventricular systolic function, estimated ejection fraction 65-70%. No focal wall motion abnormalities. Grade 1 diastolic dysfunction is present. Global longitudinal strain however is mildly diminished at-16% suggesting early systolic dysfunction. 3. Left atrial chamber dimension is severely enlarged. 4. Mild mitral regurgitation. 5. Dilated inferior vena cava with >50% collapse upon inspiration consistent with elevated right atrial pressure. 6. Normal sinus rhythm. Left Ventricle Left ventricular chamber dimension is normal. Left ventricular systolic function is normal, estimated at 65-70%. There is no increased left ventricular wall thickness. Left ventricular septal wall motion is normal. The left ventricular diastolic function is grade I diastolic dysfunction. Global longitudinal strain is mildly elevated at -16 %. Right Ventricle Right ventricular chamber dimension is normal. Right ventricular systolic function is normal. Left Atria Left atrial chamber dimension is severely enlarged. Right Atria Right atrial chamber dimension is normal. Aortic Valve The aortic valve is trileaflet. There is no aortic valve sclerosis. There is no aortic valve stenosis. There is no aortic valve regurgitation. Pulmonic Valve The pulmonic valve is normal. There is no pulmonic valve stenosis. There is no pulmonic regurgitation. Mitral Valve The mitral valve has normal leaflets. There is no mitral valve stenosis. There is mild mitral valve regurgitation. The mitral valve annulus is moderately calcified. Tricuspid Valve The tricuspid valve leaflets are normal. There is no significant tricuspid valve stenosis. There is trace tricuspid valve regurgitation. No pulmonary hypertension, estimated pulmonary arterial systolic pressure is Empty. Pericardium/Pleural The pericardium appears normal. There is no pericardial effusion. Inferior Vena Cava Dilated inferior vena cava with >50% collapse upon inspiration consistent with elevated right atrial pressure. Aorta The aortic root size at the sinus of Valsalva is normal. The prox ascending aorta size is normal. Left Ventricular Outflow Tract Name Value Normal LVOT 2D LVOT Diameter 2.1 cm LVOT Doppler LVOT Peak Gradient 4
[2020-11-14 05:32] LABS: Hematocrit 31.2 % (37.0-47.0); Hemoglobin 10.4 g/dL (12.0-15.0); Mean Corpuscular HGB Conc 33.3 g/dl (32-36); Mean Corpuscular Hemoglobin 31.8 pg (26-34); Mean Corpuscular Volume 95.4 fl (80-100); Mean Platelet Volume 9.4 fl (7.4-10.4); Platelet Count Result 131 k/mm3 (150-375); Red Blood Count 3.27 M/mm3 (4.2-5.4); Red Cell Distribution Width 14.6 % (11.5-14.5); White Blood Count 9.3 K/mm3 (4.5-10.0)
[2020-11-14 05:48] LABS: Anion Gap 5 mmol/L (8-16); Blood Urea Nitrogen 9 mg/dL (7-17); Calcium 8.7 mg/dL (8.4-10.2); Carbon Dioxide 28 mmol/L (22-30); Chloride 109 mmol/L (98-107); Creatine Kinase 31 U/L (30-135); Estimated CRCL calculation 59 ml/min; Estimated Glomerular Filt Rate > 60; Glucose 147 mg/dL (65-105); Potassium 3.8 mmol/L (3.4-5.0); Sodium 142 mmol/L (137-145)
[2020-11-14 05:50] LABS: Hemoglobin A1C 7.5 % (<5.7)
[2020-11-14] MEDS: KCL 20 MEQ/D5/0.9% SOD CHL 1,000 ML 70 ML IV CONT (08:24)
[2020-11-14] MEDS: ASPIRIN 300 MG SUPPOSITORY RECTAL (08:29)
[2020-11-14 08:32] LABS: Glucose Point of Care 116 mg/dl (65-105)
--- NOTE | 2020-11-14 10:04 | WPDNEURCNPN ---
Assessment and Plan Additional Plan ongoing history of Klippel medical problem along with the Parkinson's dementia she will need a supportive Consult date: 11/14/20 Time Seen: 11:00 HPI: Chasity Graham is a 80 year old female 80 years old admitted to the hospital for the complaints of change in the mental status in addition to the ongoing diagnosis of 1. Parkinson's disease 2. Diabetes mellitus 3. Hypothyroidism 4. Anemia she was brought to the ER by the EMS from the home for the complaints of change in the mental status she was reportedly found on the ground and again she was poor historian she reported that she is not feeling good, she has ongoing history of chronic idiopathic thrombocytopenia with anemia has sustain close right hip fracture in 2019 and also has ongoing diagnosis of dementia and Parkinson's disease has been receiving carbidopa levodopa 50/201 tablets b.i.d. in addition to donepezil 10 mg p.o. HS, evaluation up until now includes routine lab studies with normal WBC hemoglobin is only 20.4 and platelet count of 131 abnormal UA fairly normal chemistry, Doppler study of the carotid with less than 50% stenosis bilaterally modified barium swallow with laryngeal penetration without aspiration, CT of the cervical spine with advanced arthropathy, negative chest x-ray, negative CT scan of the head without any evidence of hydrocephalus or any chronic lesion, Review of Systems Review of Systems: All systems reviewed & are unremarkable except as noted in HPI and below PMFSH Past Medical History Medical History Anemia Chronic idiopathic thrombocytopenia Closed right hip fracture (07/2018) Treated nonsurgically. Dementia Diet-controlled diabetes mellitus Hypothyroidism Parkinsons disease Tobacco use Surgical History Surgical History Surgical history unknown Family History Family History Sibling Cancer Social History Social History Social History: Surrogate decision maker: Angelito Graham, or Doris Nhan, niece. Code status: Full code. Smoking status: Former smoker Alcohol intake: never Substance use: never Additional living arrangements comments: Resides in [place] with her . She tells me she has 5 children. 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 Spiritual care concerns: No Meds Home Medications and Allergies Home Medications Medication Instructions Recorded Confirmed Type carbidopa-levodopa 1 tablet PO BID 07/29/20 11/12/20 History donepezil [Aricept] 10 mg PO HS 07/29/20 11/12/20 History levothyroxine 25 mcg PO DAILY 07/29/20 11/12/20 History loratadine 10 mg PO DAILY 07/29/20 11/12/20 History Allergies Allergy/AdvReac Type Severity Reaction Status Date / Time No Known Allergies Allergy Mild Verified 11/12/20 22:35 Vital Signs Vital Signs - 24 hr 11/13/20 12:00 11/13/20 16:00 11/13/20 20:00 Temperature 35.9 C L 37.1 C 36.3 C L Pulse Rate 75 72 72 Respiratory Rate 18 18 18 Blood Pressure 155/88 H 167/72 H 157/72 H Pulse Oximetry 100 100 100 11/13/20 21:52 11/14/20 00:00 11/14/20 04:00 Temperature 36.4 C 36.1 C L Pulse Rate 70 60 Respiratory Rate 181 H 18 Blood Pressure 152/68 H 142/55 H Pulse Oximetry 99 96 98 11/14/20 08:00 Temperature 37.5 C Pulse Rate 72 Respiratory Rate 18 Blood Pressure 153/88 H Pulse Oximetry 98 Exam Narrative: Exam Narrative: revealed her to be awake alert head normocephalic with no cranial bruit year nose throat examination normal neck is supple with no cervical bruit no thyromegaly no lymphadenopathy heart regular with no murmur lungs clear to auscultation with decreased breath sounds abdomen is soft with normal bowel sounds neurological is she is awake alert pupils round regular feels the vision or extra full to finger confro
[2020-11-14 11:42] LABS: Free T4 Free Thyroxine Reflex 1.12 ng/dL (0.78-2.19)
--- NOTE | 2020-11-14 12:30 | PM.IMPN ---
Progress Note: A&P Assessment and Plan (1) Fall: Code(s): W19.XXXA - Unspecified fall, initial encounter Status: Acute Assessment and Plan: Patient found down at home. Brain CT showing no acute findings. Cervical CT also showing no acute findings. Patient doing well with therapy. Continue PT/OT. (2) Confusion: Code(s): R41.0 - Disorientation, unspecified Status: Acute Assessment and Plan: The patient presents to ED for evaluation of confusion after she was found down on the ground. Reportedly she is alert and oriented at 4 at baseline with slurred speech. Spoke with yesterday who stated the patient is falling frequently and has had speech problems since a fall 1 year ago. Spoke with Dtr today show stated patient has progressive dementia and PD. Consider new CVA given the dysphagia. MRI brain ordered. Neuro consult and appreciate their input. (3) Dysphagia: Code(s): R13.10 - Dysphagia, unspecified Status: Acute Assessment and Plan: She exhibited trace to severe penetration to above the VC with almost every consistency. She had significant penetration at the level of the epiglottis with mildly thick and moderately thick liquids. Patient appears to be at significant risk for aspiration and NPO status was recommended. CXR was clear so has been able to protect her airway. Continue IV fluids. Discussed with Dtr but possibly requiring GTube. Did discuss hospice if the family if they did not want the gTube. All questions answered. May need NGT for temporaizing measures. (4) Urinary tract infection: Qualifiers: Hematuria presence: without hematuria Urinary tract infection type: site unspecified Qualified Code(s): N39.0 - Urinary tract infection, site not specified Code(s): N39.0 - Urinary tract infection, site not specified Status: Acute Assessment and Plan: UA noted. UCx growing EColi senstive to Rocephin. Continue Rocephin (5) Elevated blood pressure reading: Code(s): R03.0 - Elevated blood-pressure reading, without diagnosis of hypertension Status: Acute Assessment and Plan: Patient's blood pressure was reviewed on 11/14 Blood pressure remains elevated at times. Patient may have had a CVA so will allow for elevated BP for now. Will continue to monitor (6) Diet-controlled diabetes mellitus: Code(s): E11.9 - Type 2 diabetes mellitus without complications Status: Acute Assessment and Plan: A1c 7.5. The patient's blood glucose was reviewed on 11/14. Not on medications at home for DM. Glucose remains well controlled. Continue AccuCheks covering with sliding scale. Hypoglycemia protocol available as needed. (7) Dementia: Code(s): F03.90 - Unspecified dementia without behavioral disturbance Status: Acute Assessment and Plan: Patient with hx of dementia that is progressive. Aricept on hold since she cannot swallow safely. (8) Hypothyroidism: Code(s): E03.9 - Hypothyroidism, unspecified Status: Acute Assessment and Plan: TSH okay. Will continue to hold Synthroid for now. 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 No felt to be clinically significant. Follow (10) Parkinsons disease: Code(s): G20 - Parkinson's disease Status: Acute Assessment and Plan: Stable. Sinemet on hold. Resume when able. Subjective Date/time seen: 11/14/20 12:30 Interval history: 80yo female with dementia, DM and Parkinson here for altered mental status and being found down. Patient awake and alert but has garbled speech and thus unable to provide hx. No issues overnight per RN. Review of Systems Review of Systems:
[2020-11-14 13:05] LABS: Glucose Point of Care 146 mg/dl (65-105)
[2020-11-14 16:52] LABS: Glucose Point of Care 120 mg/dl (65-105)
[2020-11-14 19:55] LABS: INR 1.1; Prothrombin Time 14.5 Seconds (11.1-14.7)
[2020-11-14 21:25] LABS: Glucose Point of Care 116 mg/dl (65-105)
[2020-11-15] VITALS (7 sets, daily range): BP systolic 135–160; BP diastolic 62–87; PULSE 65–79; RESP 14–22; TEMP 36–36.8; O2SAT 96–100
[2020-11-15] MEDS: KCL 20 MEQ/D5/0.9% SOD CHL 1,000 ML 70 ML IV CONT (05:17)
[2020-11-15 05:49] LABS: Hematocrit 30.9 % (37.0-47.0); Mean Corpuscular HGB Conc 32.4 g/dl (32-36); Mean Corpuscular Hemoglobin 31.4 pg (26-34); Mean Corpuscular Volume 97.2 fl (80-100); Mean Platelet Volume 9.5 fl (7.4-10.4); Platelet Count Result 117 k/mm3 (150-375); Red Blood Count 3.18 M/mm3 (4.2-5.4); Red Cell Distribution Width 14.6 % (11.5-14.5); White Blood Count 7.3 K/mm3 (4.5-10.0)
[2020-11-15 06:29] LABS: Albumin Level 3.2 g/dL (3.5-5.1); Anion Gap 4 mmol/L (8-16); Blood Urea Nitrogen 10 mg/dL (7-17); Calcium 8.5 mg/dL (8.4-10.2); Carbon Dioxide 29 mmol/L (22-30); Chloride 109 mmol/L (98-107); Estimated CRCL calculation 50 ml/min; Estimated Glomerular Filt Rate > 60; Glucose 146 mg/dL (65-105); Magnesium 1.8 mg/dL (1.6-2.3); Sodium 142 mmol/L (137-145)
[2020-11-15 07:00] LABS: Potassium 3.6 mmol/L (3.4-5.0)
--- NOTE | 2020-11-15 07:07 | WPDGICN ---
Assessment and Plan Assessment and plan (1) Dysphagia: Code(s): R13.10 - Dysphagia, unspecified Status: Acute Assessment and Plan: I explained to her how a feeding to works. She seems to comprehend some but probably not all of what I am telling her. I explained that we can give her all the nutrition and hydration she needs without her having to force herself to try to eat (2) Altered mental state: Qualifiers: Altered mental status type: unspecified Qualified Code(s): R41.82 - Altered mental status, unspecified Code(s): R41.82 - Altered mental status, unspecified Status: Acute Assessment and Plan: on top of her prior diagnoses of Parkinson's and dementia, she apparently has suffered some new neurologic insult. (3) Parkinsons disease: Code(s): G20 - Parkinson's disease Status: Acute Assessment and Plan: Parkinson's disease alone can resultant dysphagia and is probably a contributing factor GI Consult Note Consult date/time: 11/15/20 07:07 HPI: Chasity Graham is a 80 year old female Who was unable to swallow, she sustained a neurologic event and was found on the floor prior to coming to the hospital. She also suffers from Parkinson's and has dementia. She has been seen by Neurology. It is felt that she would benefit from gastrostomy tube because her inability to sustain her nutrition and hydration orally at this time. Review of Systems Review of Systems: All systems reviewed & are unremarkable except as noted in HPI and below PMFSH Past Medical History Medical History Anemia Chronic idiopathic thrombocytopenia Closed right hip fracture (07/2018) Treated nonsurgically. Dementia Diet-controlled diabetes mellitus Hypothyroidism Parkinsons disease Tobacco use Surgical History Surgical History Surgical history unknown Family History Family History Sibling Cancer Social History Social History Social History: Surrogate decision maker: Angelito Graham, or Doris Whitethorn, niece. Code status: Full code. Smoking status: Former smoker Alcohol intake: never Substance use: never Additional living arrangements comments: Resides in [place] with her . She tells me she has 5 children. 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 Spiritual care concerns: No Meds Home Medications and Allergies Home Medications Medication Instructions Recorded Confirmed Type carbidopa-levodopa 1 tablet PO BID 07/29/20 11/12/20 History donepezil [Aricept] 10 mg PO HS 07/29/20 11/12/20 History levothyroxine 25 mcg PO DAILY 07/29/20 11/12/20 History loratadine 10 mg PO DAILY 07/29/20 11/12/20 History Allergies Allergy/AdvReac Type Severity Reaction Status Date / Time No Known Allergies Allergy Mild Verified 11/12/20 22:35 Vital Signs Vital Signs - 24 hr 11/14/20 08:00 11/14/20 12:00 11/14/20 15:33 Temperature 37.5 C 36.6 C Pulse Rate 61 66 68 Respiratory Rate 18 16 Blood Pressure 153/88 H 162/78 H Pulse Oximetry 98 100 11/14/20 16:00 11/14/20 20:00 11/15/20 00:00 Temperature 36.6 C 36.1 C L Pulse Rate 71 76 71 Respiratory Rate 20 22 H Blood Pressure 153/72 H 143/71 H Pulse Oximetry 99 99 11/15/20 04:00 Temperature 36.3 C L Pulse Rate 66 Respiratory Rate 22 H Blood Pressure 135/85 Pulse Oximetry 97 Exam Const: General: cooperative; No acute distress Orientation/consciousness: oriented to person GI: GI Palp: No abdominal tenderness, Yes Soft to palpation, No Guarding due to palpation present (GI) and Yes No hepatosplenomegaly present Auscultation: normal bowel sounds Results Labs CBC & Chem 7: 11/15/20 05:24 11/15/20 05:24 Labs: Short CBC 11/15/20 Ran
[2020-11-15 08:56] LABS: Glucose Point of Care 133 mg/dl (65-105)
--- NOTE | 2020-11-15 09:13 | PM.IMPN ---
Progress Note: A&P Assessment and Plan (1) Fall: Code(s): W19.XXXA - Unspecified fall, initial encounter Status: Acute Assessment and Plan: Patient found down at home. Brain CT showing no acute findings. Cervical CT also showing no acute findings. Patient participating with therapy. Continue PT/OT. Out of bed (2) Confusion: Code(s): R41.0 - Disorientation, unspecified Status: Acute Assessment and Plan: The patient presents to ED for evaluation of confusion after she was found down on the ground. Reportedly she is alert and oriented at 4 at baseline with slurred speech. Dtr stated patient has progressive dementia and PD. MRI brain showing no acute findings. Symptoms all related to UTI? Neuro consulted and appreciate their input. Okay to stop neuro checks, ASA and telemetry. (3) Dysphagia: Code(s): R13.10 - Dysphagia, unspecified Status: Acute Assessment and Plan: She exhibited trace to severe penetration to above the VC with almost every consistency. She had significant penetration at the level of the epiglottis with mildly thick and moderately thick liquids. Patient appears to be at significant risk for aspiration and NPO status was recommended. MRI was fine so could be related to the UTI but patient still high risk even if she has some improvement with swallowing. CXR was clear so has been able to protect her airway. Continue IV fluids. Discussed with Dtr at length. After conferring with her family, she called in and requested to have GTube placed. GI consulted with plans for GTube placement later today. Dtr today decided to hold on GTube until she came in. Spoke with dtr and patient's about options. Offered NGT feeding for the weekend with repeat swallow study on Wednesday. Feroz requesting discharge. Patient on the schedule for tomorow for GTube if family agree. No decision was made this evening on how to proceed. She remains NPO with IV fluids. (4) Urinary tract infection: Qualifiers: Hematuria presence: without hematuria Urinary tract infection type: site unspecified Qualified Code(s): N39.0 - Urinary tract infection, site not specified Code(s): N39.0 - Urinary tract infection, site not specified Status: Acute Assessment and Plan: UA noted. UCx growing EColi senstive to Rocephin. Continue Rocephin (5) Elevated blood pressure reading: Code(s): R03.0 - Elevated blood-pressure reading, without diagnosis of hypertension Status: Acute Assessment and Plan: Patient's blood pressure was reviewed on 11/15 Blood pressure remains elevated at times. Patient has not had a CVA so we can add anti-HTN medications once GTube is in place. Will continue to monitor (6) Diet-controlled diabetes mellitus: Code(s): E11.9 - Type 2 diabetes mellitus without complications Status: Acute Assessment and Plan: A1c 7.5. The patient's blood glucose was reviewed on 11/15. Not on medications at home for DM. Glucose remains well controlled but currently NPO. Continue AccuCheks covering with sliding scale. Hypoglycemia protocol available as needed. (7) Dementia: Code(s): F03.90 - Unspecified dementia without behavioral disturbance Status: Acute Assessment and Plan: Patient with hx of dementia that is progressive. Aricept on hold since she cannot swallow safely. Resume once GTube in place (8) Hypothyroidism: Code(s): E03.9 - Hypothyroidism, unspecified Status: Acute Assessment and Plan: TSH okay. 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 B12 level normal. Will follow for now (10) Parkinsons disease: Code(s): G20 - Parkinson's disease
--- NOTE | 2020-11-15 10:23 | PC.NURSE ---
Spoke with daughter on the phone regarding PEG tube placement. Daughter wishes to be here before making the decision and consenting to PEG tube.
[2020-11-15 12:36] LABS: Glucose Point of Care 143 mg/dl (65-105)
[2020-11-15 17:27] LABS: Glucose Point of Care 134 mg/dl (65-105)
[2020-11-15 20:50] LABS: Glucose Point of Care 152 mg/dl (65-105)
[2020-11-16] VITALS (7 sets, daily range): BP systolic 108–166; BP diastolic 56–90; PULSE 70–83; RESP 16–22; TEMP 36–37.2; O2SAT 94–100
[2020-11-16 06:04] LABS: Glucose Point of Care 151 mg/dl (65-105)
[2020-11-16 06:13] LABS: Hematocrit 32.1 % (37.0-47.0); Hemoglobin 10.4 g/dL (12.0-15.0); Mean Corpuscular HGB Conc 32.4 g/dl (32-36); Mean Corpuscular Hemoglobin 31.5 pg (26-34); Mean Corpuscular Volume 97.3 fl (80-100); Mean Platelet Volume 9.7 fl (7.4-10.4); Platelet Count Result 115 k/mm3 (150-375); Red Cell Distribution Width 14.3 % (11.5-14.5); White Blood Count 7.7 K/mm3 (4.5-10.0)
[2020-11-16 06:14] LABS: Anion Gap 3 mmol/L (8-16); Blood Urea Nitrogen 10 mg/dL (7-17); Calcium 8.5 mg/dL (8.4-10.2); Carbon Dioxide 30 mmol/L (22-30); Chloride 109 mmol/L (98-107); Estimated CRCL calculation 50 ml/min; Estimated Glomerular Filt Rate > 60; Glucose 151 mg/dL (65-105); Potassium 3.7 mmol/L (3.4-5.0); Sodium 142 mmol/L (137-145)
--- NOTE | 2020-11-16 06:24 | WPDANESEPP ---
Anes - Eval Pre Procedure Procedure: Operation Date: 11/15/20 12:00 Proposed Procedures p Percutaneous Endoscopic Gastrostomy - Billy Marie MD Operation Date: 11/16/20 08:00 Proposed Procedures p Insertion Percutaneous Endoscopic Gastrostomy - Billy Marie MD Date/Time: 11/16/20 06:24 Pre Op Diagnosis: altered mental status, Dysphagia Patient Data Age: 80 Gender: F Height: 5 ft 2 in Weight: 48.6 kg Last Vital Signs Temp 96.8 F L 11/16/20 05:20 Pulse 78 11/16/20 05:20 Resp 22 H 11/16/20 05:20 BP 108/72 11/16/20 05:20 Pulse Ox 100 11/16/20 05:20 Allergies Allergy/AdvReac Type Severity Reaction Status Date / Time No Known Allergies Allergy Mild Verified 11/12/20 22:35 Home Medications Medication Instructions Recorded Confirmed Type carbidopa-levodopa 1 tablet PO BID 07/29/20 11/12/20 History donepezil [Aricept] 10 mg PO HS 07/29/20 11/12/20 History levothyroxine 25 mcg PO DAILY 07/29/20 11/12/20 History loratadine 10 mg PO DAILY 07/29/20 11/12/20 History Laboratory Tests 11/15/20 11/15/20 11/15/20 05:24 07:46 11:47 Sodium 142 mmol/L mmol/L (137-145) Potassium 3.6 mmol/L mmol/L (3.4-5.0) Chloride 109 mmol/L H mmol/L (98-107) Carbon Dioxide 29 mmol/L mmol/L (22-30) Anion Gap 4 mmol/L L mmol/L (8-16) BUN 10 mg/dL mg/dL (7-17) Creatinine 0.60 mg/dL L mg/dL (0.7-1.0) Estim Creat Clear Calc 50 ml/min ml/min Estimated GFR > 60 (59 - ) Glucose 146 mg/dL H mg/dL (65-105) POC Capillary Glucose 133 mg/dl H mg/dl 143 mg/dl H mg/dl (65-105) (65-105) Calcium 8.5 mg/dL mg/dL (8.4-10.2) Phosphorus 3.0 mg/dL mg/dL (2.5-4.5) Magnesium 1.8 mg/dL mg/dL (1.6-2.3) Albumin 3.2 g/dL L g/dL (3.5-5.1) 11/15/20 11/15/20 11/16/20 17:24 20:47 05:37 Sodium 142 mmol/L mmol/L (137-145) Potassium 3.7 mmol/L mmol/L (3.4-5.0) Chloride 109 mmol/L H mmol/L (98-107) Carbon Dioxide 30 mmol/L mmol/L (22-30) Anion Gap 3 mmol/L L mmol/L (8-16) BUN 10 mg/dL mg/dL (7-17) Creatinine 0.60 mg/dL L mg/dL (0.7-1.0) Estim Creat Clear Calc 50 ml/min ml/min Estimated GFR > 60 (59 - ) Glucose 151 mg/dL H mg/dL (65-105) POC Capillary Glucose 134 mg/dl H mg/dl 152 mg/dl H mg/dl (65-105) (65-105) Calcium 8.5 mg/dL mg/dL (8.4-10.2) Phosphorus Magnesium Albumin 11/16/20 06:02 Sodium Potassium Chloride Carbon Dioxide Anion Gap BUN Creatinine Estim Creat Clear Calc Estimated GFR Glucose POC Capillary Glucose 151 mg/dl H mg/dl (65-105) Calcium Phosphorus Magnesium Albumin Patient hx anesthesia problems: none Family hx anesthesia problems: none PMFSH Past Medical History Medical History Altered mental state Anemia Chronic idiopathic thrombocytopenia Closed right hip fracture (07/2018) Treated nonsurgically. Confusion Dementia Diet-controlled diabetes mellitus Dysphagia Elevated blood pressure reading Hypothyroidism Parkinsons disease Tobacco use Surgical History Surgical History Surgical history unknown Family History Family History Sibling Cancer Social History Social History Social History: Surrogate decision maker: Angelito Graham, or Doris Nhan, niece. Code status: Full code. Smoking status: Former smoker Alcohol intake: never Substance use: never Additional living arrangements comments: Resides in [place] with her . She tells me she has 5 children.
[2020-11-16 11:51] LABS: Glucose Point of Care 154 mg/dl (65-105)
[2020-11-16] MEDS: KCL 20 MEQ/D5/0.9% SOD CHL 1,000 ML 70 ML IV CONT (14:31)
--- NOTE | 2020-11-16 15:45 | PM.IMPN ---
Progress Note: A&P Assessment and Plan (1) Fall: Code(s): W19.XXXA - Unspecified fall, initial encounter Status: Acute Assessment and Plan: Patient found down at home. Brain CT showing no acute findings. Cervical CT also showing no acute findings. Patient participating with therapy. Continue PT/OT. Out of bed (2) Confusion: Code(s): R41.0 - Disorientation, unspecified Status: Acute Assessment and Plan: The patient presents to ED for evaluation of confusion after she was found down on the ground. Reportedly she is alert and oriented x4 at baseline with slurred speech. Daughter reports progressive dementia and states ?she has good days and bad days? MRI brain showing no acute findings. Symptoms may be related to UTI. She has been evaluated by neurology who recommends supportive care. Neuro checks, aspirin, telemetry discontinued. (3) Dysphagia: Code(s): R13.10 - Dysphagia, unspecified Status: Acute Assessment and Plan: She exhibited trace to severe penetration to above the VC with almost every consistency. She had significant penetration at the level of the epiglottis with mildly thick and moderately thick liquids. Patient appears to be at significant risk for aspiration and NPO status was recommended. MRI was fine so could be related to the UTI but patient still high risk even if she has some improvement with swallowing. CXR was clear so has been able to protect her airway. There was lengthy discussion between family and prior provider regarding G-tube placement given NPO status. Family has ultimately decided not to proceed with G-tube. At this time would like to proceed with partial parenteral nutrition and plan to repeat swallow study on Wednesday. Continue NPO at this time. (4) Urinary tract infection: Qualifiers: Hematuria presence: without hematuria Urinary tract infection type: site unspecified Qualified Code(s): N39.0 - Urinary tract infection, site not specified Code(s): N39.0 - Urinary tract infection, site not specified Status: Acute Assessment and Plan: UA noted. UCx growing EColi senstive to Rocephin. Continue Rocephin. PPN will need to be paused during administration of Rocephin. (5) Elevated blood pressure reading: Code(s): R03.0 - Elevated blood-pressure reading, without diagnosis of hypertension Status: Acute Assessment and Plan: Patient's blood pressure was reviewed on 11/16 Blood pressure is stable today at 108/72. She has had some elevated blood pressure readings.. Patient has not had a CVA so will consider addition of antihypertensives when no longer NPO/further dietary recommendations are made. Continue to monitor BP trends (6) Diet-controlled diabetes mellitus: Code(s): E11.9 - Type 2 diabetes mellitus without complications Status: Acute Assessment and Plan: A1c 7.5. The patient's blood glucose was reviewed on 11/16. Not on medications at home for DM. Glucose remains well controlled but currently NPO. Continue AccuCheks covering with sliding scale. Hypoglycemia protocol available as needed. (7) Dementia: Code(s): F03.90 - Unspecified dementia without behavioral disturbance Status: Acute Assessment and Plan: Patient with hx of dementia that is progressive. Aricept on hold since she cannot swallow safely. Resume when clinically appropriate (8) Hypothyroidism: Code(s): E03.9 - Hypothyroidism, unspecified Status: Acute Assessment and Plan: TSH okay. 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 B12 level normal. Will follow for now (10) Parkinsons disease: Code(s): G20 - Parkinson's disease Status: Acute
[2020-11-16 17:00] LABS: Hematocrit 36.1 % (37.0-47.0); Hemoglobin 11.8 g/dL (12.0-15.0); Mean Corpuscular HGB Conc 32.7 g/dl (32-36); Mean Corpuscular Volume 94.8 fl (80-100); Mean Platelet Volume 9.4 fl (7.4-10.4); Platelet Count Result 121 k/mm3 (150-375); Red Blood Count 3.81 M/mm3 (4.2-5.4); Red Cell Distribution Width 14.3 % (11.5-14.5); White Blood Count 7.4 K/mm3 (4.5-10.0)
[2020-11-16 17:12] LABS: Partial Thromboplastin Time 29.7 SECONDS (22.3-36.8)
[2020-11-16 17:13] LABS: Alanine Aminotransferase 9 U/L (4-35); Alkaline Phosphatase 77 U/L (38-126); Anion Gap 6 mmol/L (8-16); Aspartate Amino Transferase 20 U/L (14-36); Bilirubin,Total 1.1 mg/dL (0.2-1.3); Blood Urea Nitrogen 8 mg/dL (7-17); Calcium 9.2 mg/dL (8.4-10.2); Carbon Dioxide 30 mmol/L (22-30); Chloride 107 mmol/L (98-107); Estimated CRCL calculation 50 ml/min; Estimated Glomerular Filt Rate > 60; Glucose 174 mg/dL (65-105); Magnesium 1.7 mg/dL (1.6-2.3); Potassium 3.9 mmol/L (3.4-5.0); Sodium 143 mmol/L (137-145)
[2020-11-16 17:20] LABS: Transferrin 175 mg/dL (206-381)
[2020-11-16 17:27] LABS: Band Neutrophils Percent 3 % (0-6); Lymphocytes Absolute Manual 4.21 K/mm3 (1.1-4.5); Monocytes Absolute Manual 0.14 K/mm3 (0.1-0.90); Monocytes Percent Manual 2 % (3-9); Neutrophils Absolute Manual 3.03 K/mm3 (1.7-7.2); Neutrophils Percent Manual 38 % (46-73); Total Cells Counted 100
[2020-11-16 17:28] LABS: Platelet Estimate Decreased (Adequate)
[2020-11-16 18:10] LABS: Glucose Point of Care 159 mg/dl (65-105)
[2020-11-16] MEDS: AMINO ACIDS 4.25%/D5W/LYTES/CA 2,000 ML 80 ML IV CONT (18:57)
[2020-11-17 00:08] LABS: Glucose Point of Care 177 mg/dl (65-105)
[2020-11-17 01:06] VITALS: BP 162/78; PULSE 79; RESP 20; TEMP 36.2; O2SAT 99
[2020-11-17 05:27] LABS: Hematocrit 32.9 % (37.0-47.0); Mean Corpuscular HGB Conc 33.4 g/dl (32-36); Mean Corpuscular Hemoglobin 31.8 pg (26-34); Mean Corpuscular Volume 95.1 fl (80-100); Mean Platelet Volume 9.4 fl (7.4-10.4); Platelet Count Result 111 k/mm3 (150-375); Red Blood Count 3.46 M/mm3 (4.2-5.4); Red Cell Distribution Width 14.1 % (11.5-14.5); White Blood Count 7.2 K/mm3 (4.5-10.0)
[2020-11-17 05:46] LABS: Anion Gap 5 mmol/L (8-16); Blood Urea Nitrogen 13 mg/dL (7-17); Calcium 9.1 mg/dL (8.4-10.2); Carbon Dioxide 29 mmol/L (22-30); Chloride 106 mmol/L (98-107); Estimated CRCL calculation 59 ml/min; Estimated Glomerular Filt Rate > 60; Glucose 193 mg/dL (65-105); Phosphorus 3.6 mg/dL (2.5-4.5); Potassium 3.7 mmol/L (3.4-5.0); Sodium 140 mmol/L (137-145)
[2020-11-17 06:00] VITALS: BP 149/66; PULSE 77; RESP 20; TEMP 36.4; O2SAT 98
[2020-11-17] MEDS: LEVOTHYROXINE SODIUM INJ 100 MCG/5 ML VIAL 12.5 MCG IV PUSH (06:46)
[2020-11-17 06:51] LABS: Glucose Point of Care 195 mg/dl (65-105)
[2020-11-17] MEDS: FAT EMULSIONS IV 20% 250 ML 20.83 ML IVPB (09:01)
[2020-11-17 10:00] VITALS: BP 143/73; PULSE 81; RESP 18; TEMP 36.1; O2SAT 100
--- NOTE | 2020-11-17 11:39 | PM.IMPN ---
Progress Note: A&P Assessment and Plan (1) Fall: Code(s): W19.XXXA - Unspecified fall, initial encounter Status: Acute Assessment and Plan: Patient found down at home. Brain CT showing no acute findings. Cervical CT also showing no acute findings. Patient participating with therapy. Continue PT/OT. Out of bed (2) Confusion: Code(s): R41.0 - Disorientation, unspecified Status: Acute Assessment and Plan: The patient presents to ED for evaluation of confusion after she was found down on the ground. Reportedly she is alert and oriented x4 at baseline with slurred speech. Daughter reports progressive dementia and states ?she has good days and bad days.? MRI brain showing no acute findings. Symptoms may be worsened by UTI. She has been evaluated by neurology who recommends supportive care. Neuro checks, aspirin, telemetry discontinued. (3) Dysphagia: Code(s): R13.10 - Dysphagia, unspecified Status: Acute Assessment and Plan: She exhibited trace to severe penetration to above the VC with almost every consistency. She had significant penetration at the level of the epiglottis with mildly thick and moderately thick liquids. Patient appears to be at significant risk for aspiration and NPO status was recommended. MRI was fine so could be related to the UTI but patient still high risk even if she has some improvement with swallowing. CXR was clear so has been able to protect her airway. There was lengthy discussion between family and prior provider regarding G-tube placement given NPO status. I had a long discussion with daughterDoris, on 11/16 who reports family has ultimately decided not to proceed with G-tube. At this time would like to proceed with partial parenteral nutrition and plan to repeat swallow study tomorrow. PPN with lipids started 11/16. (4) Urinary tract infection: Qualifiers: Hematuria presence: without hematuria Urinary tract infection type: site unspecified Qualified Code(s): N39.0 - Urinary tract infection, site not specified Code(s): N39.0 - Urinary tract infection, site not specified Status: Acute Assessment and Plan: UA noted. UCx growing EColi senstive to Rocephin. Continue Rocephin. PPN will need to be paused during administration of Rocephin. (5) Elevated blood pressure reading: Code(s): R03.0 - Elevated blood-pressure reading, without diagnosis of hypertension Status: Acute Assessment and Plan: Patient's blood pressure was reviewed on 11/17 Blood pressure is stable today at 149/66. She has had some elevated blood pressure readings. Patient has not had a CVA so will consider addition of antihypertensives when no longer NPO/further dietary recommendations are made. Continue to monitor BP trends (6) Diet-controlled diabetes mellitus: Code(s): E11.9 - Type 2 diabetes mellitus without complications Status: Acute Assessment and Plan: A1c 7.5. The patient's blood glucose was reviewed on 11/17. Not on medications at home for DM. Glucose remains well controlled but currently NPO. Continue AccuCheks covering with sliding scale. Hypoglycemia protocol available as needed. (7) Dementia: Code(s): F03.90 - Unspecified dementia without behavioral disturbance Status: Acute Assessment and Plan: Patient with hx of dementia that is progressive. Aricept on hold since she cannot swallow safely. Resume when clinically appropriate (8) Hypothyroidism: Code(s): E03.9 - Hypothyroidism, unspecified Status: Acute Assessment and Plan: TSH okay. 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 B12 level normal. Will follow for now (10) Parkinsons disease:
[2020-11-17 12:08] LABS: Glucose Point of Care 221 mg/dl (65-105)
[2020-11-17] MEDS: INSULIN ASPART (*BKC) 100 UNITS/ML SUB-Q (12:17)
[2020-11-17 14:00] VITALS: BP 158/78; PULSE 78; RESP 20; TEMP 36.4; O2SAT 100
--- NOTE | 2020-11-17 14:27 | PCPTNOTE ---
Went and checked on patient for therapy. Per RN patient is not oriented and going down hill. She states that patient will not do anything and family refused a feeding tube. RN and therapist agree to hold off on therapy this date due to decline. Will reassess tomorrow to see if she is still appropriate for therapy.
[2020-11-17 17:33] LABS: Glucose Point of Care 183 mg/dl (65-105)
[2020-11-17 18:00] VITALS: BP 158/82; PULSE 78; RESP 18; TEMP 37.1; O2SAT 100
[2020-11-17 18:22] LABS: Triglycerides 116 mg/dL (<150)
[2020-11-17] MEDS: AMINO ACIDS 4.25%/D5W/LYTES/CA 2,000 ML 80 ML IV CONT (18:31)
[2020-11-17 22:00] VITALS: BP 164/67; PULSE 75; RESP 22; TEMP 36.7; O2SAT 97
[2020-11-18 00:10] LABS: Glucose Point of Care 176 mg/dl (65-105)
[2020-11-18 02:00] VITALS: BP 125/64; PULSE 69; RESP 22; TEMP 35.9; O2SAT 90
[2020-11-18 05:29] LABS: Basophils Percent Auto 0.2 % (0.2-1.2); Eosinophils Absolute Auto 0.1 K/mm3 (0-0.3); Eosinophils Percent Auto 0.7 % (0-4.4); Hemoglobin 10.9 g/dL (12.0-15.0); Immature Granulocyte Absolute 0.03 K/mm3 (0.00-0.031); Immature Granulocyte Percent A 0.4 % (0-0.5); Lymphocytes Absolute Auto 4.07 K/mm3 (0.9-3.2); Lymphocytes Percent Auto 50.7 % (18.3-44.2); Mean Corpuscular HGB Conc 32.1 g/dl (32-36); Mean Corpuscular Hemoglobin 31.1 pg (26-34); Mean Corpuscular Volume 96.9 fl (80-100); Mean Platelet Volume 9.4 fl (7.4-10.4); Monocytes Absolute Auto 0.5 K/mm3 (0.1-0.6); Monocytes Percent Auto 5.6 % (2.6-8.5); Neutrophils Absolute Auto 3.4 K/mm3 (1.3-6.7); Neutrophils Percent Auto 42.4 % (45.5-73.1); Platelet Count Result 109 k/mm3 (150-375); Red Blood Count 3.51 M/mm3 (4.2-5.4); Red Cell Distribution Width 14.4 % (11.5-14.5)
[2020-11-18 05:38] LABS: Prothrombin Time 14.1 Seconds (11.1-14.7)
[2020-11-18 05:50] LABS: Alanine Aminotransferase 7 U/L (4-35); Albumin Level 3.6 g/dL (3.5-5.1); Alkaline Phosphatase 57 U/L (38-126); Anion Gap 5 mmol/L (8-16); Aspartate Amino Transferase 14 U/L (14-36); Blood Urea Nitrogen 22 mg/dL (7-17); Calcium 8.9 mg/dL (8.4-10.2); Carbon Dioxide 31 mmol/L (22-30); Chloride 102 mmol/L (98-107); Estimated CRCL calculation 44 ml/min; Estimated Glomerular Filt Rate > 60; Glucose 170 mg/dL (65-105); Magnesium 1.9 mg/dL (1.6-2.3); Phosphorus 4.4 mg/dL (2.5-4.5); Potassium 4.3 mmol/L (3.4-5.0); Sodium 138 mmol/L (137-145)
[2020-11-18] MEDS: LEVOTHYROXINE SODIUM INJ 100 MCG/5 ML VIAL 12.5 MCG IV PUSH (05:57)
[2020-11-18 05:58] LABS: Transferrin 155 mg/dL (206-381)
[2020-11-18 06:00] VITALS: BP 123/103; PULSE 57; RESP 22; TEMP 36.1; O2SAT 95
[2020-11-18 06:15] LABS: Glucose Point of Care 165 mg/dl (65-105)
[2020-11-18 10:00] VITALS: BP 128/58; PULSE 67; RESP 20; TEMP 37; O2SAT 100
--- NOTE | 2020-11-18 10:33 | WPDNEUROPN ---
Progress Note: A&P Additional Plan will continue the treatment as such neurologically with ongoing supportive physical therapy and supervision as far as the left atrial chamber enlargement is concerned considering the age of the patient I will recommend to continue her on aspirin until and unless the engineer fishing vessel consider further intervention Review of Systems Review of Systems: All systems reviewed & are unremarkable except as noted in HPI and below Exam Const: General: cooperative, comfortable and no acute distress Nutritional Appearance: thin Orientation/consciousness: oriented to person HENMT: Head: normal to inspection Ears: hearing grossly normal bilaterally General nose exam: Normal external nose present Face and sinus: normal facial exam Mouth: Yes Normal oral and palatal mucosa present Eyes: General: appearance normal, both eyes and all related structures Neck: Neck: full ROM Resp: Effort & Inspection: able to speak in complete sentences Auscultation: clear to auscultation bilaterally Neuro: General: oriented to person Cranial nerves: Yes CN's II-XII intact bilaterally Cognition (Neuro): abnormal cognition Speech: dysarthria Motor exam (neuro): Pronator motor function not present and Abnormal motor strength present Deep tendon reflexes (DTR's): Right triceps reflex intensity grade: 1+, Left triceps reflex intensity grade: 1+, Rt Biceps (C5, C6): 1+, Left biceps reflex intensity grade: 1+, Right brachioradialis reflex intensity grade: 1+, Left brachioradialis reflex intensity grade: 1+, Right patellar reflex intensity grade: 1+, Left patellar reflex intensity grade: 1+, Right ankle reflex intensity grade: 1+ and Left ankle reflex intensity grade: 1+ Plantar Reflex Responses: downgoing: bilateral Psych: Appearance: grossly normal Objective Data Vital Signs Vital Signs: Vital Signs - 24 hr 11/17/20 14:00 11/17/20 18:00 11/17/20 22:00 Temperature 36.4 C L 37.1 C 36.7 C Pulse Rate 78 78 75 Respiratory Rate 20 18 22 H Blood Pressure 158/78 H 158/82 H 164/67 H Pulse Oximetry 100 100 97 11/18/20 02:00 11/18/20 06:00 Temperature 35.9 C L 36.1 C L Pulse Rate 69 57 L Respiratory Rate 22 H 22 H Blood Pressure 125/64 123/103 H Pulse Oximetry 90 95 Intake/Output Intake/Output: Intake & Output 06/1811/16/20 11/17/20 11/18/20 23:59 23:59 23:59 23:59 Intake Total 2050 50 2300 0 Output Total 600 Balance 1450 50 2300 0 Meds/Results Medications: Active Medications Generic Name Dose Route Start Last Admin Trade Name Lili PRN Reason Stop Dose Admin Carbidopa/Levodopa 2 tablet 11/13/20 09:00 11/13/20 09:44 Carbidopa/Levodopa 25/100 Mg Cr Tablet PO Not Given BID CARLOS Dextrose 12.5 gm 11/13/20 16:06 Dextrose 50% 25 Gm/50 Ml Syringe IV PUSH PRN PRN Hypoglycemia Protocol Donepezil HCl 10 mg 11/13/20 01:30 11/13/20 01:52 Donepezil Hcl 10 Mg Tablet PO Not Given HS CARLOS Glucagon 1 mg 11/13/20 16:06 Glucagon For Inj 1 Mg Vial IM PRN PRN Hypoglycemia Protocol Glucose 15 gm 11/13/20 16:06 Glucose Oral Gel 15 Gm Of Glucse In 37.5 Gm Tube PO PRN PRN Hypoglycemia Protocol Ceftriaxone Sodium/Dextrose 1 gm in 50 mls @ 100 mls/hr 11/13/20 19:00 11/17/20 18:30 Rocephin 1 Gm/D5w 50 Ml IVPB Infused Q24H CARLOS Infusion Dextrose 1,000 mls @ 100 mls/hr 11/13/20 16:06 Dextrose 5% 1,000 Ml IVPB PRN PRN Hypoglycemia Protocol Dextrose 1,000 mls @ 50 mls/hr 11/16/20 15:53 Dextrose 10% IV CONT .Q20H PRN if PN is interrupted Amino Acids/Electrolytes/Dextrose 2,000 mls @ 80 mls/hr 11/16/20 18:00 11/17/20 18:31 Clinimix E 4.25%/5% Solution IV CONT 80 mls/hr .Q24H CARLOS Administration Protocol Fat Emulsion Intravenous 250 mls @ 20.833 mls/hr 11/17/20 09:00 11/17/20 21:30 Lipids 20% IVPB Infused DAILY CARLOS Infusion Insulin Aspart 2 - 5 units 11/16/20 18:00
[2020-11-18] MEDS: FAT EMULSIONS IV 20% 250 ML 20.83 ML IVPB (10:43)
--- NOTE | 2020-11-18 11:04 | PM.IMPN ---
Progress Note: A&P Assessment and Plan (1) Fall: Code(s): W19.XXXA - Unspecified fall, initial encounter Status: Acute Assessment and Plan: Patient found down at home. Brain CT showing no acute findings. Cervical CT also showing no acute findings. Patient participating with therapy. Continue PT/OT. (2) Confusion: Code(s): R41.0 - Disorientation, unspecified Status: Acute Assessment and Plan: The patient presents to ED for evaluation of confusion after she was found down on the ground. Reportedly she is alert and oriented x4 at baseline with slurred speech. Daughter reports progressive dementia and states ?she has good days and bad days.? MRI brain showing no acute findings. Symptoms may be worsened by UTI. She has been evaluated by neurology who recommends supportive care. Leah (3) Dysphagia: Code(s): R13.10 - Dysphagia, unspecified Status: Acute Assessment and Plan: She exhibited trace to severe penetration to above the VC with almost every consistency. She had significant penetration at the level of the epiglottis with mildly thick and moderately thick liquids. Patient appears to be at significant risk for aspiration and NPO status was recommended. MRI showed no acute findings so dysphagia/weakness could be related to the UTI but patient still high risk even if she has some improvement with swallowing. CXR was clear so has been able to protect her airway. There was lengthy discussion between family and myself regarding G-tube placement given NPO status. Family has decided not to proceed with G-tube. Currently on PPN treatment. Repeat swallow study scheduled for today. (4) Urinary tract infection: Qualifiers: Hematuria presence: without hematuria Urinary tract infection type: site unspecified Qualified Code(s): N39.0 - Urinary tract infection, site not specified Code(s): N39.0 - Urinary tract infection, site not specified Status: Acute Assessment and Plan: UA noted. UCx growing EColi senstive to Rocephin. Continue Rocephin. (5) Elevated blood pressure reading: Code(s): R03.0 - Elevated blood-pressure reading, without diagnosis of hypertension Status: Acute Assessment and Plan: Patient's blood pressure was reviewed on 11/18. Blood pressure more elevated recently. Patient has not had a CVA so will consider addition of antihypertensives when no longer NPO/further dietary recommendations are made. Continue to monitor BP trends (6) Diet-controlled diabetes mellitus: Code(s): E11.9 - Type 2 diabetes mellitus without complications Status: Acute Assessment and Plan: A1c 7.5. The patient's blood glucose was reviewed on 11/18. Not on medications at home for DM. Glucose higher due to the PPN. Continue AccuCheks covering with sliding scale. Hypoglycemia protocol available as needed. (7) Dementia: Code(s): F03.90 - Unspecified dementia without behavioral disturbance Status: Acute Assessment and Plan: Patient with hx of dementia that is progressive. Aricept on hold since she cannot swallow safely. Resume when clinically appropriate (8) Hypothyroidism: Code(s): E03.9 - Hypothyroidism, unspecified Status: Acute Assessment and Plan: TSH okay. 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 B12 level normal. Will follow for now (10) Parkinsons disease: Code(s): G20 - Parkinson's disease Status: Acute Assessment and Plan: Stable. Sinemet on hold. Resume when able. (11) DVT prophylaxis: Code(s): Z29.9 - Encounter for prophylactic measures, unspecified Status: Acute Assessment and Plan: SCDs Subje
[2020-11-18 12:49] LABS: Glucose Point of Care 159 mg/dl (65-105)
[2020-11-18 14:00] VITALS: BP 130/62; PULSE 72; RESP 18; TEMP 36.8; O2SAT 98
[2020-11-18 14:04] VITALS: BMI 19.5
--- NOTE | 2020-11-18 14:29 | PCNSR ---
On 11/18/20, the student,Zoe Person, provided care and completed [facility] documentation on this patient. I have reviewed the student's documentation and agree with the findings.
--- NOTE | 2020-11-18 15:41 | PCSTNOTE ---
Please refer to the Modified Barium Swallow Evaluation in the EMR.
[2020-11-18] MEDS: AMINO ACIDS 4.25%/D5W/LYTES/CA 2,000 ML 80 ML IV CONT (17:08)
[2020-11-18 18:00] VITALS: BP 134/68; PULSE 71; RESP 18; TEMP 36.9; O2SAT 90
[2020-11-18 18:23] LABS: Glucose Point of Care 151 mg/dl (65-105)
[2020-11-18 21:23] VITALS: BP 139/66; PULSE 72; RESP 18; TEMP 36; O2SAT 100
[2020-11-18 22:18] LABS: Glucose Point of Care 130 mg/dl (65-105)
[2020-11-19] VITALS (7 sets, daily range): BP systolic 106–133; BP diastolic 58–84; PULSE 56–74; RESP 18–20; TEMP 35.8–36.7; O2SAT 96–99
[2020-11-19 00:43] LABS: Glucose Point of Care 155 mg/dl (65-105)
--- NOTE | 2020-11-19 01:06 | PC.NURSE ---
PT PULLED OUT IV 0000. NEW IV PLACED 0025. WHEN ATTEMPTING TO DO ANYTHING WITH THE PATIENT SHE IS HITTING, PUNCHING AND SCRATCHING. WILL NOT REDIRECT VERY AGGRESSIVE. NEEDED THE NURSE AIDS HELP TO HOLD PT IN ORDER TO GET A BLOOD SUGAR READING. DOES NOT LIKE ANYONE TOUCHING HER
[2020-11-19] MEDS: LEVOTHYROXINE SODIUM INJ 100 MCG/5 ML VIAL 12.5 MCG IV PUSH (05:36)
[2020-11-19 05:41] LABS: Glucose Point of Care 200 mg/dl (65-105)
[2020-11-19 06:42] LABS: Anion Gap 8 mmol/L (8-16); Blood Urea Nitrogen 27 mg/dL (7-17); Calcium 8.9 mg/dL (8.4-10.2); Carbon Dioxide 29 mmol/L (22-30); Chloride 103 mmol/L (98-107); Estimated CRCL calculation 44 ml/min; Estimated Glomerular Filt Rate > 60; Glucose 170 mg/dL (65-105); Phosphorus 4.2 mg/dL (2.5-4.5); Potassium 3.9 mmol/L (3.4-5.0); Sodium 140 mmol/L (137-145)
[2020-11-19] MEDS: FAT EMULSIONS IV 20% 250 ML 20.83 ML IVPB (08:54)
[2020-11-19 11:53] LABS: Glucose Point of Care 237 mg/dl (65-105)
[2020-11-19] MEDS: INSULIN ASPART (*BKC) 100 UNITS/ML SUB-Q (12:02)
--- NOTE | 2020-11-19 12:04 | PCNFU ---
Nutrition Follow-Up Complete: Nutrition Diagnosis: Swallowing difficulty related to altered mental status and dysphagia as evidenced by a history of Parkinson's disease. Nutrition Goal: Have patient meet estimated nutritional needs. Goal is in progress, patient is receiving PPN. Nutrition recommendation: Continue with PPN at 80mls/hr, which gives 1153 calories and 82 grams of protein. Last recorded weight is 48.6 kg. Bowel Motility: Last documented on 11/19 Labs Reviewed:BUN (27), Glu (170) Meds Noted:Clinimix E 4.25%/5% at 80mls/hr, 20% Lipid Emulsion, Novolog, Synthroid Additional Notes: Patient failed MBS on 11/18, waiting for MD to speak with family on how they would like to move forward with her nutritional status. Will follow up every 3 days.
--- NOTE | 2020-11-19 12:27 | PCNSR ---
On 11/19/20, the student,Zoe Person, provided care and completed [facility] documentation on this patient. I have reviewed the student's documentation and agree with the findings.
--- NOTE | 2020-11-19 15:17 | PM.IMPN ---
Progress Note: A&P Assessment and Plan (1) Fall: Code(s): W19.XXXA - Unspecified fall, initial encounter Status: Acute Assessment and Plan: Patient found down at home. Brain CT showing no acute findings. Cervical CT also showing no acute findings. Patient participating with therapy. Continue PT/OT. (2) Confusion: Code(s): R41.0 - Disorientation, unspecified Status: Acute Assessment and Plan: The patient presents to ED for evaluation of confusion after she was found down on the ground. Reportedly she is alert and oriented x4 at baseline with slurred speech. Daughter reports progressive dementia and states ?she has good days and bad days.? MRI brain showing no acute findings. Symptoms may be worsened by UTI but this has now been treated. She has been evaluated by neurology who recommends supportive care. Follow (3) Dysphagia: Code(s): R13.10 - Dysphagia, unspecified Status: Acute Assessment and Plan: She exhibited trace to severe penetration to above the VC with almost every consistency. She had significant penetration at the level of the epiglottis with mildly thick and moderately thick liquids. Patient appears to be at significant risk for aspiration and NPO status was recommended. MRI showed no acute findings so dysphagia/weakness could be related to the UTI but patient still high risk even if she has some improvement with swallowing. CXR was clear so has been able to protect her airway. There was lengthy discussion between family and myself regarding G-tube placement given NPO status. Family has decided not to proceed with G-tube. Currently on PPN treatment. Repeat swallow study yesterday again showing patietn unable to swallow safely. ST did provide a diet if family wishing for patiet to have oral feedings. (4) Urinary tract infection: Qualifiers: Hematuria presence: without hematuria Urinary tract infection type: site unspecified Qualified Code(s): N39.0 - Urinary tract infection, site not specified Code(s): N39.0 - Urinary tract infection, site not specified Status: Acute Assessment and Plan: UA noted. UCx growing EColi senstive to Rocephin. She completed a course of abx. (5) Elevated blood pressure reading: Code(s): R03.0 - Elevated blood-pressure reading, without diagnosis of hypertension Status: Acute Assessment and Plan: Patient's blood pressure was reviewed on 11/19. Blood pressure now well controlled. Continue to monitor BP trends. (6) Diet-controlled diabetes mellitus: Code(s): E11.9 - Type 2 diabetes mellitus without complications Status: Acute Assessment and Plan: A1c 7.5. The patient's blood glucose was reviewed on 11/19. Not on medications at home for DM. Glucose higher due to the PPN. Continue AccuCheks covering with sliding scale. Hypoglycemia protocol available as needed. (7) Dementia: Code(s): F03.90 - Unspecified dementia without behavioral disturbance Status: Acute Assessment and Plan: Patient with hx of dementia that is progressive. Aricept on hold since she cannot swallow safely. Resume when clinically appropriate (8) Hypothyroidism: Code(s): E03.9 - Hypothyroidism, unspecified Status: Acute Assessment and Plan: TSH okay. 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 B12 level normal. Will follow for now (10) Parkinsons disease: Code(s): G20 - Parkinson's disease Status: Acute Assessment and Plan: Stable. Sinemet on hold. Resume when able. (11) DVT prophylaxis: Code(s): Z29.9 - Encounter for prophylactic measures, unspecified Status: Acute Assessmen
[2020-11-19 16:06] LABS: Triglycerides 134 mg/dL (<150)
[2020-11-19] MEDS: CARBIDOPA/LEVODOPA 25/100 MG CR TABLET 2 TABLET PO (17:40)
[2020-11-19 17:49] LABS: Glucose Point of Care 193 mg/dl (65-105)
[2020-11-19] MEDS: DONEPEZIL HCL 10 MG TABLET PO (20:21)
[2020-11-19 21:08] LABS: Glucose Point of Care 171 mg/dl (65-105)
[2020-11-20 00:07] LABS: Glucose Point of Care 121 mg/dl (65-105)
[2020-11-20 02:00] VITALS: BP 113/58; PULSE 66; RESP 20; TEMP 36.7; O2SAT 99
[2020-11-20] MEDS: LEVOTHYROXINE SODIUM 25 MCG TABLET PO (05:30)
[2020-11-20 05:33] LABS: Glucose Point of Care 127 mg/dl (65-105)
[2020-11-20 06:00] VITALS: BP 129/59; PULSE 67; RESP 20; TEMP 36.6; O2SAT 100
[2020-11-20 08:37] VITALS: RESP 20; O2SAT 98
[2020-11-20] MEDS: ASPIRIN 81 MG CHEWABLE TABLET BY MOUTH (08:37)
[2020-11-20] MEDS: CARBIDOPA/LEVODOPA 25/100 MG CR TABLET 2 TABLET PO (08:37)
[2020-11-20 10:00] VITALS: BP 113/56; PULSE 70; RESP 18; TEMP 37.2; O2SAT 97
--- NOTE | 2020-11-20 11:15 | PM.DS ---
DS: Admitting Diagnosis Admitting Diagnosis Admitting Diagnosis: Altered mental status; fall DS: Discharge Diagnosis Discharge Diagnosis (1) Fall: Code(s): W19.XXXA - Unspecified fall, initial encounter Status: Acute Assessment and Plan: Patient found down at home. Brain CT showing no acute findings. Cervical CT also showing no acute findings. Patient participating with therapy. (2) Confusion: Code(s): R41.0 - Disorientation, unspecified Status: Acute Assessment and Plan: The patient presents to ED for evaluation of confusion after she was found down on the ground. Reportedly she is alert and oriented x4 at baseline with slurred speech. Daughter reports progressive dementia and stated ?she has good days and bad days.? MRI brain showing no acute findings. Symptoms may be worsened by UTI but only minimal improvement after UTI treatment. She was evaluated by neurology who recommends supportive care. (3) Dysphagia: Code(s): R13.10 - Dysphagia, unspecified Status: Acute Assessment and Plan: She exhibited trace to severe penetration to above the VC with almost every consistency. She had significant penetration at the level of the epiglottis with mildly thick and moderately thick liquids. Patient appears to be at significant risk for aspiration and NPO status was recommended. MRI showed no acute findings so dysphagia/weakness could be related to the UTI but patient still high risk. CXR was clear so has been able to protect her airway. Multiple, lengthy discussions between family and myself regarding G-tube placement vs oral feedings and the risks/benefits of each. She was placed on PPN while decision was being discussed. Repeat swallow study again showing patient unable to swallow safely. ST did provide a diet if family wishing for patient to have oral feedings. Family decided not to proceed with G-tube. Diet started with aspiration precautions. (4) Urinary tract infection: Qualifiers: Hematuria presence: without hematuria Urinary tract infection type: site unspecified Qualified Code(s): N39.0 - Urinary tract infection, site not specified Code(s): N39.0 - Urinary tract infection, site not specified Status: Acute Assessment and Plan: UA noted. UCx growing EColi senstive to Rocephin. She completed a course of abx. (5) Elevated blood pressure reading: Code(s): R03.0 - Elevated blood-pressure reading, without diagnosis of hypertension Status: Acute Assessment and Plan: Patient's blood pressure was monitored closely. BP was elevated at times but improved toward the end of her hospital stay. (6) Diet-controlled diabetes mellitus: Code(s): E11.9 - Type 2 diabetes mellitus without complications Status: Acute Assessment and Plan: A1c 7.5. The patient's blood glucose was monitored closely with AccuCheks covering with sliding scale. Not on medications at home for DM. Glucose was higher when she was on PPN. Hypoglycemia protocol was available as needed. (7) Dementia: Code(s): F03.90 - Unspecified dementia without behavioral disturbance Status: Acute Assessment and Plan: Patient with hx of dementia that is progressive. Aricept was held since she could not swallow safely. This was resumed when family decided to allow for oral feedings. (8) Hypothyroidism: Code(s): E03.9 - Hypothyroidism, unspecified Status: Acute Assessment and Plan: TSH okay. Treated with IV levothyroxine but changed to oral once decision was made to allow for oral feedings. 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 B12 level normal. (10) Parkinsons disease: Code(s): G20 - Parkinson's disease Stat
[2020-11-20 11:52] LABS: EDCOVIDSCREEN Negative (Negative)
[2020-11-20 12:15] LABS: Glucose Point of Care 128 mg/dl (65-105)
[2020-11-20 14:00] VITALS: BP 142/69; PULSE 86; RESP 20; TEMP 36.4; O2SAT 100
== END 2020-11-20 15:10 | DRG 690 ==
LOC: ANHED 17:06 → ANH2MED 20:26
PROVIDERS: Internal Medicine; Internal Medicine Gastroenterology; Physician Assistant; Admitting Provider Family Medicine; Emergency Provider Emergency Medicine; PCP Nurse Practitioner Adult Health; Visit Provider Physician Assistant
DX: N39.0 Urinary tract infection, site not specified (principal); D69.3 Immune thrombocytopenic purpura; B96.20 Unspecified Escherichia coli [E. coli] as the cause of diseases classified elsewhere; R03.0 Elevated blood-pressure reading, without diagnosis of hypertension; E11.9 Type 2 diabetes mellitus without complications; R13.10 Dysphagia, unspecified; F03.90 Unspecified dementia, unspecified severity, without behavioral disturbance, psychotic disturbance, mood disturbance, and anxiety; E03.9 Hypothyroidism, unspecified; G20 Parkinson's disease; W19.XXXA Unspecified fall, initial encounter; D64.9 Anemia, unspecified; Z87.891 Personal history of nicotine dependence
CPT/HCPCS: 36415; 70450; 70553; 71045; 72125; 80048; 80053; 80069; 81001; 82550; 82607; 82948; 83036; 83735; 84100; 84439; 84443; 84466; 84478; 84480; 85025; 85027; 85610; 85730; 87077; 87086; 87088; 87186; 87426; 92507; 92526; 92611; 93005; 93306; 93880; 96361; 96365; 96366; 96367; 96376; 97110; 97162; 97165; 97530; 97535; 99285; A9270; A9577; C9803; G0378; J0131; J0696; J1815; J3480; J7030; J7120

== ENCOUNTER 2020-12-18 21:37 | Emergency (ER) | payer MEDICARE, SELFPAY ==
[2020-12-18 21:44] VITALS: BP 123/67; PULSE 86; RESP 18; TEMP 36.9; O2SAT 98
[2020-12-18 22:27] LABS: Basophils Percent Auto 0.3 % (0.2-1.2); Eosinophils Absolute Auto 0.1 K/mm3 (0-0.3); Eosinophils Percent Auto 0.9 % (0-4.4); Hematocrit 29.3 % (37.0-47.0); Hemoglobin 9.5 g/dL (12.0-15.0); Immature Granulocyte Absolute 0.03 K/mm3 (0.00-0.031); Immature Granulocyte Percent A 0.3 % (0-0.5); Lymphocytes Absolute Auto 6.18 K/mm3 (0.9-3.2); Lymphocytes Percent Auto 64.2 % (18.3-44.2); Mean Corpuscular HGB Conc 32.4 g/dl (32-36); Mean Corpuscular Hemoglobin 31.6 pg (26-34); Mean Corpuscular Volume 97.3 fl (80-100); Mean Platelet Volume 9.9 fl (7.4-10.4); Monocytes Absolute Auto 0.3 K/mm3 (0.1-0.6); Monocytes Percent Auto 3.2 % (2.6-8.5); Neutrophils Percent Auto 31.1 % (45.5-73.1); Platelet Count Result 121 k/mm3 (150-375); Red Blood Count 3.01 M/mm3 (4.2-5.4); Red Cell Distribution Width 14.9 % (11.5-14.5); White Blood Count 9.6 K/mm3 (4.5-10.0)
[2020-12-18 22:29] LABS: Add Urine Microscopic? YES; Appearance Urine Clear (Clear); Bilirubin Urine Negative (Negative); Blood Urine Negative (Negative); Color Urine Yellow (Yellow); Glucose Urine UA 3+ mg/dL (Negative); Ketones Urine Trace mg/dL (Negative); Leukocyte Esterase Ur Negative LEU/UL (Negative); Mucus Urine Rare /lpf; Nitrate Urine Negative (Negative); Protein Urine Negative (Negative); RBC Urine 0-2 /hpf (0-2); Squamous Epithelial Cell Urine Rare /hpf (Few); WBC Urine 0-3 /hpf
[2020-12-18 22:41] LABS: Anion Gap 8 mmol/L (8-16); Blood Urea Nitrogen 17 mg/dL (7-17); Calcium 8.6 mg/dL (8.4-10.2); Carbon Dioxide 28 mmol/L (22-30); Chloride 102 mmol/L (98-107); Estimated CRCL calculation 46 ml/min; Estimated Glomerular Filt Rate > 60; Glucose 247 mg/dL (65-110); Potassium 3.5 mmol/L (3.4-5.0); Sodium 138 mmol/L (137-145)
[2020-12-18 22:57] LABS: Specific Grav Ur 1.032 (1.001-1.035)
--- NOTE | 2020-12-18 23:12 | ED.GENADULT ---
HPI - General Adult General Chief complaint: Unspecified Stated complaint: aggitation Time Seen by Provider: 12/18/20 21:54 Source: patient, EMS and old records reviewed Mode of arrival: EMS Limitations: no limitations History of Present Illness HPI narrative: 80-year-old female History of dementia and occasional behavioral issues Apparently was getting a little salty with [facility] staff and refusing to take her p.m. meds so she was sent to the ED to be called down They had no per se medical concerns and she has no particular complaints and has been actually pretty cooperative with both EMS and us Related Data Home Medications Medication Instructions Recorded Confirmed donepezil [Aricept] 10 mg PO HS 07/29/20 11/12/20 levothyroxine 25 mcg PO DAILY 07/29/20 11/12/20 Allergies Allergy/AdvReac Type Severity Reaction Status Date / Time No Known Allergies Allergy Mild Verified 11/12/20 22:35 Review of Systems Review of Systems: All systems reviewed & are unremarkable except as noted in HPI and below ROS unobtainable: Yes other (Limited due to dementia) Constitutional: Constitutional: Reports no additional constitutional complaints and Denies fever(s) ENT: Denies headache(s) Cardiovascular: Cardiovascular: Denies chest pain and Denies dyspnea Respiratory: Respiratory: Denies dyspnea Gastrointestinal: Gastrointestinal: Denies abdominal pain, Denies diarrhea and Denies vomiting Genitourinary: Genitourinary: Denies dysuria [facility] Past Medical History Medical History Altered mental state Anemia Chronic idiopathic thrombocytopenia Closed right hip fracture (07/2018) Treated nonsurgically. Confusion Dementia Diet-controlled diabetes mellitus Dysphagia Elevated blood pressure reading Hypothyroidism Parkinsons disease Tobacco use Surgical History Surgical History Surgical history unknown Family History Family History Sibling Cancer Social History Social History Social History: Surrogate decision maker: Angelito Graham, or Doris Mountainair, niece. Code status: Full code. Smoking status: Former smoker Alcohol intake: never Substance use: never Additional living arrangements comments: Resides in [place] with her . She tells me she has 5 children. 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 Spiritual care concerns: No Exam Const: General: no acute distress Orientation/consciousness: oriented to person Other: Frail, elderly HENMT: Head: normal to inspection, normocephalic and atraumatic Mouth: Yes dry mucous membranes Eyes: Conjunctivae: conjunctivae normal EOM: EOMs intact bilaterally Neck: Neck: normal visual inspection, supple and no JVD Resp: Effort & Inspection: normal respiratory effort and not labored Auscultation: clear to auscultation bilaterally, no rales, no rhonchi, no wheezes and other (BS =) Cardio: Rate: regular rate Rhythm: regular rhythm Heart sounds: no murmurs GI: GI Palp: Yes Soft to palpation and No Tenderness to palpation present (GI) Skin: General skin exam: normal color and no rashes or lesions noted Neuro: General: moves all extremities Speech: normal speech Extrem: General: no pedal edema Course Course Emergency Course: Unremarkable medical evaluation Vital Signs Vital signs: Vital Signs Temperature 36.9 C 12/18/20 21:44 Pulse Rate 86 12/18/20 21:44 Respiratory Rate 18 12/18/20 21:44 Blood Pressure 123/67 12/18/20 21:44 Pulse Oximetry 98 12/18/20 21:44 Temperature 36.9 C 12/18/20 21:44 Pulse Rate 70 12/18/20 23:21 Respiratory Rate 17 12/18/20 23:21 Blood Pressure 115/70 12/18/20 23:21 Pulse Oximetry 98 12/18/20 23:21 Medical Decision Making Vital Signs Vital Signs: Vital Sign
[2020-12-18] MEDS: HALOPERIDOL LACTATE 5 MG/ML VIAL 2 MG IV PUSH (23:20)
[2020-12-18] MEDS: LACTATED RINGERS 1,000 ML 999 ML IV CONT (23:20)
[2020-12-18 23:21] VITALS: BP 115/70; PULSE 70; RESP 17; O2SAT 98
--- NOTE | 2020-12-18 23:46 | PC.NURSE ---
called [facility] to request transport. ETA [id number]
[2020-12-19 00:08] VITALS: BP 135/59; PULSE 62; RESP 18; O2SAT 96
[2020-12-19 00:09] VITALS: BP 135/59; PULSE 62; RESP 18; O2SAT 96
--- NOTE | 2020-12-19 00:16 | PC.NURSE ---
2350 Called to [facility] to request transport. [id number] Cancelled [facility].
--- NOTE | 2020-12-19 00:30 | PC.NURSE ---
[facility] here
== END 2020-12-19 00:34 ==
PROVIDERS: Emergency Provider Emergency Medicine; PCP Nurse Practitioner Adult Health
DX: F03.91 Unspecified dementia, unspecified severity, with behavioral disturbance (principal); D64.9 Anemia, unspecified; E03.9 Hypothyroidism, unspecified; G20 Parkinson's disease; F02.81 Dementia in other diseases classified elsewhere, unspecified severity, with behavioral disturbance
CPT/HCPCS: 36415; 80048; 81001; 85025; 96361; 96374; 99284; J1630; J7120

== ENCOUNTER 2020-12-28 04:32 | Emergency (ER) | payer MEDICARE, SELFPAY ==
[2020-12-28] VITALS (7 sets, daily range): BP systolic 162–163; BP diastolic 72–85; PULSE 80–81; RESP 18; TEMP 36.7; O2SAT 95–100
--- NOTE | ~2020-12-28 | CT_ITS ---
EXAMINATION: CT brain wo con INDICATION: Head injury COMPARISON: 11/12/2020 TECHNIQUE: Standard unenhanced head CT. The dose-length product (DLP) was 681.00 mGy-cm. The mA was a djusted according to patient size. Iterative reconstruction technique was employed. FINDINGS: There is no acute intraparenchymal hemorrhage. No evidence of mass lesion. No evidence of a cute infarction. There is moderate periventricular and subcortical hypodensity probably related to sm all vessel ischemic disease. There is moderate prominence of the sulci and ventricles related to cere bral atrophy. Intracranial calcified cerebral atherosclerosis is noted. There are no extra-axial sruthi ections. There is no mass effect or midline shift. The orbits and soft tissues are unremarkable. The visualized sinuses and mastoid air cells are well aerated. IMPRESSION: 1. No acute intracranial abnormality. 2. Age related findings. Reviewed, dictated and finalized at location A.
--- NOTE | ~2020-12-28 | CT_ITS ---
EXAMINATION: CT cervical spine wo con DATE: 12/28/2020 05:03 INDICATION: Head injury TECHNIQUE: Computed tomography (CT) of the cervical spine was performed without intravenous contrast. The dose-length product (DLP) was 112.70 mGy-cm. Automated exposure control and iterative reconstruc tion technique were employed. COMPARISON: 11/18/2020 FINDINGS: There is no fracture. The odontoid is intact. There is 1 mm retrolisthesis of C5 on C6. The vertebral body heights are maintained. There is mild to moderate loss of intervertebral disc space h eight at C4-5 and C5-6 and mild loss of disc space height at C2-3. The prevertebral soft tissues are normal. There is moderate to severe multilevel facet and uncovertebral joint osteoarthritis. IMPRESSION: 1. Moderate to severe cervical spondylosis without acute findings or significant interval change. Reviewed, dictated and finalized at location A. IMPRESSION: 1. Moderate to severe cervical spondylosis without acute findings or significan t interval change.
--- NOTE | 2020-12-28 04:40 | ED.FALL ---
HPI - Fall General Chief Complaint: Fall Stated Complaint: fall x 3 Time Seen by Provider: 12/28/20 04:39 History of Present Illness HPI Narrative: [facility] She was reportedly found down by her bed. This is reportedly the third time recently. She has no complaints. She is oriented x1 at baseline. History limited by dementia Related Data Home Medications Medication Instructions Recorded Confirmed donepezil [Aricept] 10 mg PO HS 07/29/20 11/12/20 levothyroxine 25 mcg PO DAILY 07/29/20 11/12/20 buspirone mg 12/18/20 escitalopram oxalate mg 12/18/20 mirtazapine mg 12/18/20 trazodone 12/18/20 Allergies Allergy/AdvReac Type Severity Reaction Status Date / Time No Known Allergies Allergy Mild Verified 01/04/21 04:58 Review of Systems Review of Systems: ROS unobtainable: Yes unobtainable due to mental status PMFSH Past Medical History Medical History Altered mental state Anemia Chronic idiopathic thrombocytopenia Closed right hip fracture (07/2018) Treated nonsurgically. Confusion Dementia Diet-controlled diabetes mellitus Dysphagia Elevated blood pressure reading Hypothyroidism Parkinsons disease Tobacco use Surgical History Surgical History Surgical history unknown Family History Family History Sibling Cancer Social History Social History Social History: Surrogate decision maker: Angelito Graham, or Doris Nhan, niece. Code status: Full code. Smoking status: Former smoker Alcohol intake: never Substance use: never Additional living arrangements comments: Resides in [place] with her . She tells me she has 5 children. 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 Gender identity (if verbalized by the patient): Female Spiritual care concerns: No Exam Const: General: no acute distress and confusion Nutritional Appearance: well nourished HENMT: Head: no hematomas and no lacerations Eyes: Pupils: Equal, round and reactive pupils present Resp: Effort & Inspection: normal respiratory effort Auscultation: clear to auscultation bilaterally Cardio: Rate: regular rate Rhythm: regular rhythm GI: GI Palp: Yes Soft to palpation and No Tenderness to palpation present (GI) Skin: General skin exam: normal color Neuro: General: no focal motor deficits and CN's II-XI intact bilaterally Other: oriented x1 Extrem: Other: nontender Course Vital Signs Vital signs: Vital Signs Temperature 36.7 C 12/28/20 04:38 Pulse Rate 80 12/28/20 04:38 Respiratory Rate 18 12/28/20 04:38 Blood Pressure 162/72 H 12/28/20 04:38 Pulse Oximetry 95 12/28/20 04:38 Temperature 36.7 C 12/28/20 04:38 Pulse Rate 81 12/28/20 08:11 Respiratory Rate 18 12/28/20 08:11 Blood Pressure 163/85 H 12/28/20 08:11 Pulse Oximetry 99 12/28/20 08:11 MDM - Fall Medical Records Attestation: I reviewed the patient's medical records. Imaging Data Radiologist's impression: ITS Impressions Head CT 12/28/20 14:51 IMPRESSION: 1. No acute intracranial abnormality. 2. Age related findings. Cervical Spine CT 12/28/20 19:34 IMPRESSION: 1. Moderate to severe cervical spondylosis without acute findings or significant interval change. Discharge Plan Discharge Clinical Impression: Frequent falls Patient Disposition: NH Group Home/Asst Living Condition: Stable Instructions: Fall Prevention for Older Adults (ED), Head Injury (ED) Prescriptions: No Action aspirin [Children's Aspirin] 81 mg Tablet,Chewable 81 mg BYMOUTH DAILY@0800 Qty: 30 RF: 0 carbidopa-levodopa 50-200 mg Tablet Extended Release 1 tablet PO TID Qty: 0 RF: 0 buspirone 5 mg tablet RF: 0 trazodone 50 mg tabl
--- NOTE | 2020-12-28 06:22 | PC.NURSE ---
called [facility] to request transport. ETA [id number]
== END 2020-12-28 08:15 ==
PROVIDERS: Emergency Provider Emergency Medicine; PCP Nurse Practitioner Adult Health
DX: R29.6 Repeated falls (principal); F03.90 Unspecified dementia, unspecified severity, without behavioral disturbance, psychotic disturbance, mood disturbance, and anxiety; G20 Parkinson's disease; D69.3 Immune thrombocytopenic purpura; E11.9 Type 2 diabetes mellitus without complications; E03.9 Hypothyroidism, unspecified; Z86.2 Personal history of diseases of the blood and blood-forming organs and certain disorders involving the immune mechanism; Z87.891 Personal history of nicotine dependence; Z79.82 Long term (current) use of aspirin
CPT/HCPCS: 70450; 72125; 99284

== ENCOUNTER 2021-01-04 03:54 | Emergency (ER) | payer MEDICARE, SELFPAY ==
--- NOTE | ~2021-01-04 | CT_ITS ---
EXAMINATION: CT cervical spine wo con DATE: 01/04/2021 04:44 INDICATION: Status post fall. Neck pain. TECHNIQUE: Computed tomography (CT) of the cervical spine was performed without intravenous contrast. The dose-length product was 101 mGy-cm. Automated exposure control and iterative reconstruction tech nique were employed. COMPARISON: CT dated 12/28/2020 FINDINGS: Accentuated cervical lordosis. Levoscoliosis. Odontoid process within normal limits. No acu te fracture, subluxation or dislocation. There is multilevel degenerative disc disease and facet hype rtrophy. No significant spinal stenosis. Lung apices are unremarkable. IMPRESSION: 1. No acute fracture. 2: Moderate cervical spondylosis with levoscoliosis. Reviewed, dictated and finalized at location A.
--- NOTE | ~2021-01-04 | CT_ITS ---
EXAMINATION: CT brain wo con DATE: 01/04/2021 04:44 INDICATION: Status post fall. Trauma to the head. TECHNIQUE: Computed tomography (CT) of the head was performed without intravenous contrast. The dose- length product was 756.67 mGy-cm. Automated exposure control and iterative reconstruction technique w ere employed. COMPARISON: CT dated 12/28/2020 FINDINGS: Generalized atrophy. There are scattered mild periventricular and subcortical white matter changes, most likely related to small vessel ischemic disease (microangiopathy). No acute intracrania l hemorrhage, mass or mass effect. No ventriculomegaly or midline shift. Basilar cisterns are patent. No depressed skull fractures. A left frontal scalp soft tissue swelling. IMPRESSION: 1. No acute intracranial abnormality Reviewed, dictated and finalized at location A.
[2021-01-04 03:57] VITALS: BP 136/61; PULSE 67; RESP 18; TEMP 36.6; O2SAT 100
--- NOTE | 2021-01-04 04:36 | ED.FALL ---
HPI - Fall General Chief Complaint: Fall Stated Complaint: GLF LF EYE LAC 2 History of Present Illness HPI Narrative: Unwitnessed fall at the long-term. Laceration noted above the left eye. History limited due to dementia Related Data Home Medications Medication Instructions Recorded Confirmed donepezil [Aricept] 10 mg PO HS 07/29/20 11/12/20 levothyroxine 25 mcg PO DAILY 07/29/20 11/12/20 buspirone mg 12/18/20 escitalopram oxalate mg 12/18/20 mirtazapine mg 12/18/20 trazodone 12/18/20 Allergies Allergy/AdvReac Type Severity Reaction Status Date / Time No Known Allergies Allergy Mild Verified 01/04/21 04:58 Review of Systems Review of Systems: ROS unobtainable: Yes unobtainable due to mental status PMFSH Past Medical History Medical History Altered mental state Anemia Chronic idiopathic thrombocytopenia Closed right hip fracture (07/2018) Treated nonsurgically. Confusion Dementia Diet-controlled diabetes mellitus Dysphagia Elevated blood pressure reading Hypothyroidism Parkinsons disease Tobacco use Surgical History Surgical History Surgical history unknown Family History Family History Sibling Cancer Social History Social History Social History: Surrogate decision maker: Angelito Graham, or Doris Justin, niece. Code status: Full code. Smoking status: Former smoker Alcohol intake: never Substance use: never Additional living arrangements comments: Resides in [place] with her . She tells me she has 5 children. 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 Gender identity (if verbalized by the patient): Female Spiritual care concerns: No Exam Const: General: no acute distress and alert HENMT: Head: laceration (3 cm left forehead) Eyes: Pupils: Equal, round and reactive pupils present Resp: Effort & Inspection: normal respiratory effort Auscultation: clear to auscultation bilaterally Cardio: Rate: regular rate Rhythm: regular rhythm GI: GI Palp: Yes Soft to palpation and No Tenderness to palpation present (GI) Skin: General skin exam: normal color Neuro: General: moves all extremities and no focal motor deficits Other: oriented x1 Extrem: General: normal to inspection Course Vital Signs Vital signs: Vital Signs Temperature 36.6 C 01/04/21 03:57 Pulse Rate 67 01/04/21 03:57 Respiratory Rate 18 01/04/21 03:57 Blood Pressure 136/61 01/04/21 03:57 Pulse Oximetry 100 01/04/21 03:57 Temperature 36.6 C 01/04/21 03:57 Pulse Rate 67 01/04/21 03:57 Respiratory Rate 18 01/04/21 03:57 Blood Pressure 136/61 01/04/21 03:57 Pulse Oximetry 100 01/04/21 03:57 Procedures Laceration Laceration 1: Site: face Side (If applicable): left Size (cm): 3 Description: linear Depth: simple, single layer Local Anesthetic: none Pre-repair: irrigated ====== Skin Level ====== Skin layer closed with: dermabond ====== Subcutaneous Layer ====== ====== Muscle Layer ====== ====== Tendon Layer ====== MDM - Fall MDM Narrative Medical decision making narrative: CTs negative. Discharge Plan Discharge Clinical Impression: Forehead laceration Qualifiers: Encounter type: initial encounter Qualified Code(s): S01.81XA - Laceration without foreign body of other part of head, initial encounter Patient Disposition: Home, Self-Care Condition: Stable Instructions: Laceration (ED), Head Injury (ED) Prescriptions: No Action aspirin [Children's Aspirin] 81 mg Tablet,Chewable 81 mg BYMOUTH DAILY@0800 Qty: 30 RF: 0 carbidopa-levodopa 50-200 mg Tablet Extended Release 1 tablet PO TID Qty: 0 RF: 0 buspirone 5 mg tablet
[2021-01-04 06:22] VITALS: BP 131/48; PULSE 76; RESP 15; O2SAT 100
--- NOTE | 2021-01-04 06:24 | PC.NURSE ---
called [facility] to request transport. ETA [id number]
--- NOTE | 2021-01-04 06:49 | PC.NURSE ---
[facility] here.
== END 2021-01-04 06:55 | disposition home or self-care (01) ==
PROVIDERS: Emergency Provider Emergency Medicine; PCP Nurse Practitioner Adult Health
DX: S01.81XA Laceration without foreign body of other part of head, initial encounter (principal); F03.90 Unspecified dementia, unspecified severity, without behavioral disturbance, psychotic disturbance, mood disturbance, and anxiety; D69.3 Immune thrombocytopenic purpura; E11.9 Type 2 diabetes mellitus without complications; E03.9 Hypothyroidism, unspecified; G20 Parkinson's disease; Z87.891 Personal history of nicotine dependence; W19.XXXA Unspecified fall, initial encounter
CPT/HCPCS: 12013; 70450; 72125; 99284

== ENCOUNTER 2021-06-03 01:06 | Inpatient (IN) | payer MEDICARE, MEDICAID, SELFPAY ==
[2021-06-03] VITALS (19 sets, daily range): BP systolic 107–165; BP diastolic 56–138; PULSE 81–100; RESP 15–23; TEMP 37–37.7; O2SAT 93–98; BMI 14.2
--- NOTE | ~2021-06-03 | XR_ITS ---
EXAMINATION: XR Abdomen PICC EXAM DATE: 06/05/2021 15:52 INDICATION: ABD PICC Placement . TECHNIQUE: Frontal projection(s) of the abdomen for interpretation. Comparison is made to prior exami nation from earlier same date. FINDINGS: Right-sided femoral PICC line identified, tip has straightened out, at the L2 level aiming cephalad. It projects over the right side of the spine which is the expected location of the IVC. The re is nonobstructive bowel gas pattern. Bony degenerative changes. IMPRESSION: Right femoral PICC line in position. Reviewed, dictated and finalized at location A. CARE TRANSITION
--- NOTE | ~2021-06-03 | XR_ITS ---
EXAMINATION: XR chest 1V portable DATE: 06/03/2021 01:59 INDICATION: Dyspnea. TECHNIQUE: A single frontal view of the chest was obtained on 2 radiographs. COMPARISON: Chest single view 11/12/2020, chest CT 06/03/2021 FINDINGS: The patient is rotated to her left. A calcified right lung nodule is consistent with old gr anulomatous disease. There are airspace opacities in the mid and lower lung zones. No pleural effusio n or pneumothorax. The heart size is normal. IMPRESSION: 1. Airspace opacities in the mid and lower lung zones, consistent with pneumonia. Reviewed, dictated and finalized at location A. RAL STATION OPERATOR IMPRESSION: 1. Airspace opacities in the mid and lower lung zones, consistent with pneumoni a.
--- NOTE | ~2021-06-03 | CT_ITS ---
EXAMINATION: CTA chest PE protocol DATE: 06/03/2021 03:36 INDICATION: Shortness of breath. TECHNIQUE: Computed tomography angiography (CTA) of the chest was performed with 100 mL Omnipaque-350 intravenous contrast timed to evaluate the pulmonary arteries. Coronal maximum intensity projection 3D-reconstructions were created by the technologist. Automated exposure control and iterative reconst ruction technique were employed. The dose-length product was 201.48 mGy-cm. COMPARISON: Chest single view 06/03/2021 FINDINGS: There are airspace and groundglass opacities and centrilobular nodules in the lower lobes, right middle lobe, and left upper lobe. There are mild dependent airspace and groundglass opacities i n right upper lobe. There is material in the bronchi in the lower lobes and lingula. A calcified righ t lung nodule and calcified right hilar lymph nodes are consistent with old granulomatous disease. No pleural effusion. The heart size is normal. There are coronary artery calcifications. There is a sma ll pericardial effusion. There is no pulmonary embolus. There is a 3.2 cm cyst in right kidney. There is moderate splenomegaly. There is kyphosis of thoracic spine. There are chronic compression fractur es at many levels in thoracic spine. There is a chronic burst fracture of L2. IMPRESSION: 1. No pulmonary embolus. 2. Multifocal pneumonia involving all lobes predominantly in the mid and lower lung zones. 3. Material in the bronchi in the lower lobes and lingula, which may be mucous plugging or aspiration . 4. Small pericardial effusion. 5. Moderate splenomegaly. Reviewed, dictated and finalized at location A. CH MAKER IMPRESSION: 1. No pulmonary embolus. 2. Multifocal pneumonia involving all lobes predominantly in the mid and lower lung zones. 3. Material in the bronchi in the lower lobes and lingula, which may be mucous plugging or aspiration. 4. Small pericardial effusion. 5. Moderate splenomegaly.
--- NOTE | ~2021-06-03 | XR_ITS ---
EXAMINATION: XR Abdomen [facility] DATE: 06/05/2021 14:30 INDICATION: Right femoral central venous catheter placement. TECHNIQUE: A supine view of the abdomen was obtained. COMPARISON: None. FINDINGS: There are no dilated loops of bowel. There is a right groin central venous catheter curled in a loop at L5. IMPRESSION: 1. Right groin central venous catheter curled in a loop at L5 at the junction of the right common anthony ac vein and inferior vena cava. Reviewed, dictated and finalized at location A. GENCY ROOM PHYSICIAN ASSISTANT IMPRESSION: 1. Right groin central venous catheter curled in a loop at L5 at the junction o f the right common iliac vein and inferior vena cava.
--- NOTE | ~2021-06-03 | XR_ITS ---
EXAMINATION: XR chest 1V portable DATE: 06/06/2021 14:18 INDICATION: Dyspnea. TECHNIQUE: A single frontal view of the chest was obtained. COMPARISON: Chest single view 06/03/2021, chest CT 06/03/2021 FINDINGS: There are airspace opacities in the mid and lower lung zones. There is a small left pleural effusion. No pneumothorax. The heart size is normal. IMPRESSION: 1. Airspace opacities in the mid and lower lung zones with worsening on the left, consistent with pne umonia. 2. Worsened small left pleural effusion. Reviewed, dictated and finalized at location A. K MIXER OPERATOR IMPRESSION: 1. Airspace opacities in the mid and lower lung zones with worsening on the lef t, consistent with pneumonia. 2. Worsened small left pleural effusion.
--- NOTE | 2021-06-03 01:13 | ECG_ITS ---
Measurements Intervals [place] Rate: 93 P: 75 KS: 134 QRS: -30 QRSD: 98 T: 70 QT: 318 QTc: 396 Interpretive Statements SINUS RHYTHM MISPLACED LEAD V1 LOW QRS VOLTAGE IN LIMB LEADS BORDERLINE ST-T WAVE ABNORMALITY- HIGH LATERAL LEADS BASELINE ARTIFACT- I, II, III, AVR, AVL, AVF, V3-V6 BORDERLINE ECG Electronically Signed On 06-03-2021 6:23:12 SIGNAL FITTER by Ezequiel Goddard D.O.
--- NOTE | 2021-06-03 01:26 | ED.SOB ---
HPI - SOB/Dyspnea General Chief Complaint: Shortness of Breath/Dyspnea Stated Complaint: covid + low o2 sat Time Seen by Provider: 06/03/21 01:11 Source: EMS Mode of arrival: EMS Limitations: dementia History of Present Illness HPI Narrative: Patient is a 80-year-old female brought in by EMS due to low oxygen saturation at the alf, 80s on 5 L of oxygen. Patient recently tested positive for Covid. Patient has dementia and unable to get any history from the patient. Related Data Home Medications Medication Instructions Recorded Confirmed donepezil [Aricept] 10 mg PO HS 07/29/20 11/12/20 levothyroxine 25 mcg PO DAILY 07/29/20 11/12/20 buspirone mg 12/18/20 escitalopram oxalate mg 12/18/20 mirtazapine mg 12/18/20 trazodone 12/18/20 Allergies Allergy/AdvReac Type Severity Reaction Status Date / Time No Known Allergies Allergy Mild Verified 06/03/21 01:22 Review of Systems Review of Systems: ROS unobtainable: Yes unobtainable due to medical condition and other (Dementia) [facility] Past Medical History Medical History Altered mental state Anemia Chronic idiopathic thrombocytopenia Closed right hip fracture (07/2018) Treated nonsurgically. Confusion Dementia Diet-controlled diabetes mellitus Dysphagia Elevated blood pressure reading Hypothyroidism Parkinsons disease Tobacco use Surgical History Surgical History Surgical history unknown Family History Family History Sibling Cancer Social History Social History Social History: Surrogate decision maker: Angelito Graham, or Doris Justin, niece. Code status: Full code. Smoking status: Former smoker Alcohol intake: never Substance use: never Additional living arrangements comments: Resides in [place] with her . She tells me she has 5 children. 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 Gender identity (if verbalized by the patient): Female Spiritual care concerns: No Exam Const: General: ill appearing Limitations: other limitations (Dementia) Other: Frail, moderate distress HENMT: Head: normal to inspection, normocephalic and atraumatic Ears: TM normal on the right and TM normal on the left General nose exam: Normal external nose present, Normal nares present and No nasal discharge present Face and sinus: normal facial exam Mouth: Yes Normal oral and palatal mucosa present, Yes lip normal, Yes tongue normal and Yes oropharynx normal Throat: posterior oropharynx normal, tonsils normal and uvula midline Eyes: General: appearance normal, both eyes and all related structures Pupils: Equal, round and reactive pupils present EOM: EOMs intact bilaterally Neck: Neck: normal visual inspection, full ROM, no lymphadenopathy and no meningeal signs Chest: Chest palpation & inspection: normal inspection of the chest Resp: Effort & Inspection: tachypneic (Mild) Auscultation: clear to auscultation bilaterally, no crackles, no rales, no rhonchi and no wheezes Other: Mild respiratory distress Cardio: Rate: regular rate Rhythm: regular rhythm GI: Inspection: normal to inspection GI Palp: No abdominal tenderness, Yes Soft to palpation, No Tenderness to palpation present (GI), No Guarding due to palpation present (GI), No Rigid due to palpation and No Rebound tenderness present Auscultation: normal bowel sounds : General: Yes no CVA tenderness Back/Spine/Pelvis: Back: no CVA tenderness Skin: General skin exam: normal color, no rashes or lesions noted, elasticity normal and turgor normal Neuro: General: moves all extremities Cranial nerves: Yes Equal, round and reactive pupils present Sensory Exam: No Sensory deficit (Neuro) Extrem: General: normal to inspection, full ROM and capillary refill normal Course
[2021-06-03 02:29] LABS: Basophils Absolute Auto 0.1 K/mm3 (0.0-0.1); Basophils Percent Auto 0.3 % (0.2-1.2); Eosinophils Percent Auto 0.2 % (0-4.4); Hematocrit 38.2 % (37.0-47.0); Hemoglobin 11.6 g/dL (12.0-15.0); Immature Granulocyte Absolute 0.15 K/mm3 (0.00-0.031); Immature Granulocyte Percent A 0.9 % (0-0.5); Mean Corpuscular HGB Conc 30.4 g/dl (32-36); Mean Corpuscular Hemoglobin 31.9 pg (26-34); Mean Corpuscular Volume 104.9 fl (80-100); Monocytes Absolute Auto 0.5 K/mm3 (0.1-0.6); Monocytes Percent Auto 2.6 % (2.6-8.5); Platelet Count Result 176 k/mm3 (150-375); Red Blood Count 3.64 M/mm3 (4.2-5.4); Red Cell Distribution Width 13.8 % (11.5-14.5); White Blood Count 17.2 K/mm3 (4.5-10.0)
[2021-06-03 02:40] LABS: INR 1.1; Partial Thromboplastin Time 27.5 SECONDS (22.3-36.8); Prothrombin Time 13.7 Seconds (11.1-14.7)
[2021-06-03 02:57] LABS: D Dimer 4.82 ug/mL (<0.48)
[2021-06-03 03:03] LABS: NT Pro B Type Natriuretic Pept 742 pg/mL (5-100); Troponin I 0.013 ng/mL (0.000-0.034)
[2021-06-03 03:09] LABS: Albumin Level 3.9 g/dL (3.5-5.1); Alkaline Phosphatase 74 U/L (38-126); Anion Gap 13 mmol/L (8-16); Aspartate Amino Transferase 38 U/L (14-36); Bilirubin,Total 0.5 mg/dL (0.2-1.3); Blood Urea Nitrogen 38 mg/dL (7-17); Calcium 9.4 mg/dL (8.4-10.2); Carbon Dioxide 30 mmol/L (22-30); Chloride 109 mmol/L (98-107); Estimated Glomerular Filt Rate > 60; Glucose 309 mg/dL (65-110); Potassium 3.7 mmol/L (3.4-5.0); Sodium 152 mmol/L (137-145)
[2021-06-03 03:24] LABS: Alanine Aminotransferase 26 U/L (4-35)
[2021-06-03] MEDS: ALBUTEROL SULFATE NEB 2.5 MG/0.5 ML INH 5 MG INHALATION (03:40)
[2021-06-03] MEDS: IPRATROPIUM BR 0.02% INH SOLN 0.5 MG/2.5 ML VIAL INHALATION (03:40)
[2021-06-03 05:39] LABS: Alveolar/Arterial O2 Gradient 144.5 mmHg; Base Excess ABG 1.3 mEq/l (+/-2.0); Carboxyhemoglobin 0.1 % THb (0-2.0); Device NASAL CANNULA; Fractional Inspired Oxygen 36 %; HCO3 ABG 25.2 mEq/l (22.0-26.0); Methemoglobin ABG 0.1 %THb (0-1.5); Modified Allen's Test Unable to perform; Oxygen Saturation ABG 94.5 % (95.0-100.0); Oxyhemoglobin 92.8 % THb (90.0-100.0); PCO2 ABG 37.4 mmHg (35.0-45.0); PO2 ABG 68.8 mmHg (80.0-100.0); PO2 FiO2 Ratio Arterial Blood 1.91 %; Site Drawn LEFT RADIAL; Total Hemoglobin 12.2 g/dL (12.0-18.0); pH ABG 7.446 (7.350-7.450)
[2021-06-03] MEDS: SODIUM CHLORIDE 0.9% IV 1,000 ML 999 ML IV CONT (05:45)
[2021-06-03 07:26] LABS: Estimated Glomerular Filt Rate > 60
[2021-06-03 07:28] LABS: Lactic Acid Reflex 5.5 mmol/L (0.7-2.1)
[2021-06-03] MEDS: REMDESIVIR 200 MG/NS 250 ML 200 MG/250 ML BAG 250 MG IVPB (07:28)
[2021-06-03 07:33] LABS: Alanine Aminotransferase 25 U/L (4-35)
[2021-06-03 07:45] LABS: Prothrombin Time 13.5 Seconds (11.1-14.7)
--- NOTE | 2021-06-03 09:09 | PM.IMHP ---
H&P: HPI History of Present Illness Date/Time: 06/03/21 09:09 Chief Complaint: low saturations Narrative: Patient is a 72-year-old female with a past medical history of dementia, dysphagia, Parkinson's disease, hypothyroidism, and anemia who presented to the ED after she was found to have a saturation in the 80s at [facility]. It is noted that the patient tested positive for COVID 19 on 05-31-21. Unsure of patient's baseline however when asked her she was feeling she said not good but would not answer any of my other questions. She seemed to have some sensory overload at the time of exam. She was on 3L per nasal cannula. She was sating about 95-98%. When turned to room air her saturations were in the 80s, however, she was very restless, and the monitor was not picking up a good waveform. It looks like she was last here in October where they had found her to be aspirating. ST [facility]. Prior to DC it looks as if the family was not wanting her to have a feeding tube. Current chest xray does show PNA, and the CTA shows material in the bronchi indicating aspiration or mucous plugging. She also looks septic on labs. Lactic acids is elevated at 5.5, and WBC are elevated at 17.2. However, she does not display any tachycardia, hypotension, or any organ damage. She did have a slight fever of 99.86 upon arrival. She did get 1L of saline in the ED. LR was initiated, however, was stopped due to the COVID diagnosis and fever of overload. However, clinical picture does indicate that she could use fluids at this time. Will continue fluids, but monitor fluid status. NA is also elevated at 152. Could indicate dehydration. BUN is also elevated which could indicate possible kidney failure, however, Cr is normal. Feel that this really could be related to dehydration at this point. Tried to call the daughter, to actually find out what happened. Did not get in touch with her at that time. Complete review of symptoms was not obtained due to the patient's mental status. Talked to the facility that stated patient's baseline is A&O x1 sometimes. She rarely follows commands, and is not active. She told me that her saturation did get down to 83%. She also explained that she rarely eats. She did confirm the positive result was on the 05/31/21. Patient is being admitted to the hospital service as an inpatient. Review of Systems Review of Systems: All systems reviewed & are unremarkable except as noted in HPI and below PMFSH Past Medical History Medical History Altered mental state Anemia Chronic idiopathic thrombocytopenia Closed right hip fracture (07/2018) Treated nonsurgically. Confusion Dementia Diet-controlled diabetes mellitus Dysphagia Elevated blood pressure reading Hypothyroidism Parkinsons disease Tobacco use Surgical History Surgical History Surgical history unknown Family History Family History Sibling Cancer Social History Social History (Updated 06/03/21 @ 09:29 by OCTAVIO Lugo) Social History: Patient is a resident of [facility]. Baseline unknown. Surrogate decision maker: Angelito Graham, or Doris [place], niece. 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 Gender identity (if verbalized by the patient): Female Sexual Orientation (if Verbalized by the Patient): Straight or Heterosexual Spiritual care concerns: No Agree to blood products: Yes Meds Home Medications and Allergies Home Medications Medication Instructions Recorded Confirmed Type donepezil [Aricept] 10 mg PO
[2021-06-03 10:10] LABS: Reflex Lactic Acid Yes or No Add Lactic
[2021-06-03] MEDS: LACTATED RINGERS 1,000 ML 75 ML IV CONT ×2 (10:49→16:05)
[2021-06-03 11:01] LABS: Lactic Acid Reflex 3.7 mmol/L (0.7-2.1)
--- NOTE | 2021-06-03 13:37 | PCSTNOTE ---
Due to patient remaining in the ED this afternoon, the Bedside Swallow Evaluation will be attempted tomorrow morning.
--- NOTE | 2021-06-03 17:49 | ADMGEN ---
This patient, Chasity Graham, was admitted to [facility] Surg Room 324-02. Patient/family oriented to hospital policies and general routines including ID bracelet, bed and alarms, visiting hours, pain management, procedures, bathroom and other care routines, personal items, smoking policy, room service/diet, and visiting hours. Information on how to activate the Rapid Response Team has been discussed. Patient/Family are encouraged to report perceived risks to care and to ask questions if they do not understand what they are told or what they should do.
[2021-06-04] VITALS (8 sets, daily range): BP systolic 108–150; BP diastolic 74–87; PULSE 68–93; RESP 14–18; TEMP 36.5–36.6; O2SAT 90–93; BMI 14.2
[2021-06-04] MEDS: LACTATED RINGERS 1,000 ML 75 ML IV CONT (06:51)
[2021-06-04 09:12] LABS: Basophils Absolute Auto 0.1 K/mm3 (0.0-0.1); Basophils Percent Auto 0.3 % (0.2-1.2); Eosinophils Percent Auto 0.1 % (0-4.4); Hematocrit 37.4 % (37.0-47.0); Hemoglobin 12.2 g/dL (12.0-15.0); Immature Granulocyte Absolute 0.51 K/mm3 (0.00-0.031); Immature Granulocyte Percent A 1.9 % (0-0.5); Lymphocytes Absolute Auto 16.54 K/mm3 (0.9-3.2); Lymphocytes Percent Auto 60.2 % (18.3-44.2); Mean Corpuscular HGB Conc 32.6 g/dl (32-36); Mean Corpuscular Hemoglobin 32.4 pg (26-34); Mean Corpuscular Volume 99.5 fl (80-100); Mean Platelet Volume 10.4 fl (7.4-10.4); Monocytes Absolute Auto 1.1 K/mm3 (0.1-0.6); Monocytes Percent Auto 3.9 % (2.6-8.5); Neutrophils Absolute Auto 9.2 K/mm3 (1.3-6.7); Neutrophils Percent Auto 33.6 % (45.5-73.1); Platelet Count Result 170 k/mm3 (150-375); Red Blood Count 3.76 M/mm3 (4.2-5.4); Red Cell Distribution Width 13.8 % (11.5-14.5); White Blood Count 27.5 K/mm3 (4.5-10.0)
--- NOTE | 2021-06-04 09:15 | P.PNIM_ITS ---
Progress Note: A&P Assessment and Plan (1) Acute respiratory failure with hypoxia: Code(s): J96.01 - Acute respiratory failure with hypoxia Status: Acute Assessment and Plan: * Saturation in the 80s at the retirement * Placed on 5LNC per EMS, currently on RA * Supplemental O2, currently on room air * ABG is normal with hypoxia, PaO2 68.8, but saturation on gas was 94.5 * Wean supplemental oxygen to maintain saturation above 92% (2) Aspiration pneumonia: Code(s): J69.0 - Pneumonitis due to inhalation of food and vomit Status: Acute Assessment and Plan: * CTA findings material in the bronchi in the lower lobes and lingula, which may be mucous plugging or aspiration * Speech has seen in the past, recommended non oral, but settled on mildly thicken liquids, pureed, and no cups or straws fluids per spoon only, up right sitting and multiple swallows * Family did not want feeding tube at that time * WBC is 17.2, trending up to 27.5 * Blood cultures obtained * Zosyn started 06/03/21, will change to cefepime and vanco * Keep NPO for now, for mental status and aspiration * Reconsult Speech therapy, continue to NPO * Consult gelatin powder mixer since patient could potentially need tube feedings * Trend labs (3) Pneumonia due to COVID-19 virus: Code(s): U07.1 - COVID-19; J12.82 - Pneumonia due to coronavirus disease 2019 Status: Acute Assessment and Plan: * Chest xray shows Airspace opacities in the mid and lower lung zones, consistent with pneumonia. * CTA shows Multifocal pneumonia involving all lobes predominantly in the mid and lower lung zones. * COVID positive as of 05/31/21 * Remdesivir and Decadron started in the ED 06/03/21, day 2 * Supplemental oxygen wean to maintain saturations greater than 92% * supportive care * Lovenox for DVT * Zosyn for bacteria coverage, change to cefepime and vanc * Sputum culture ordered * Blood cultures pending * Albuterol, Robitussin PRN * Inflammatory markers: ferritin 1160, LDH 913, CRP 15.1, dimer 3.75 * Order IS and Pep therapy, however, I don't think that she will be able to do this (4) Hypernatremia: Code(s): E87.0 - Hyperosmolality and hypernatremia Status: Acute Assessment and Plan: * Sodium 155 on labs, corrected 160 since she is hyperglycemic * D5w started * Trend sodium * keep an eye to not correct it too fast. (5) Dysphagia: Code(s): R13.10 - Dysphagia, unspecified Status: Acute Assessment and Plan: * Reconsult Speech * See aspiration PNA above (6) Parkinsons disease: Code(s): G20 - Parkinson's disease Status: Acute Assessment and Plan: * Hold carbidopa/levodopa for now since there is speculation of aspiration * Continue when appropriate (7) Hypothyroidism: Code(s): E03.9 - Hypothyroidism, unspecified Status: Acute Assessment and Plan: * Last TSH was normal * TSH 2.140 * Continue home Levothyroxine 25mcg PO daily when appropriate, consider IV (8) Dementia: Code(s): F03.90 - Unspecified dementia without behavioral disturbance Status: Acute Assessment and Plan: * Currently on donepezil, mirtazapine, quetiapine, and trazodone * Hold for now, NPO * Resume when appropriate (9) Sepsis: Code(s): A41.9 - Sepsis, unspecified organism Status: Acute Assessment and
--- NOTE | 2021-06-04 09:15 | PM.IMPN ---
Progress Note: A&P Assessment and Plan (1) Acute respiratory failure with hypoxia: Code(s): J96.01 - Acute respiratory failure with hypoxia Status: Acute Assessment and Plan: Saturation in the 80s at the halfway Placed on 5LNC per EMS, currently on RA Supplemental O2, currently on room air ABG is normal with hypoxia, PaO2 68.8, but saturation on gas was 94.5 Wean supplemental oxygen to maintain saturation above 92% (2) Aspiration pneumonia: Code(s): J69.0 - Pneumonitis due to inhalation of food and vomit Status: Acute Assessment and Plan: CTA findings material in the bronchi in the lower lobes and lingula, which may be mucous plugging or aspiration Speech has seen in the past, recommended non oral, but settled on mildly thicken liquids, pureed, and no cups or straws fluids per spoon only, up right sitting and multiple swallows Family did not want feeding tube at that time WBC is 17.2, trending up to 27.5 Blood cultures obtained Zosyn started 06/03/21, will change to cefepime and vanco Keep NPO for now, for mental status and aspiration Reconsult Speech therapy, continue to NPO Consult cnc router operator since patient could potentially need tube feedings Trend labs (3) Pneumonia due to COVID-19 virus: Code(s): U07.1 - COVID-19; J12.82 - Pneumonia due to coronavirus disease 2019 Status: Acute Assessment and Plan: Chest xray shows Airspace opacities in the mid and lower lung zones, consistent with pneumonia. CTA shows Multifocal pneumonia involving all lobes predominantly in the mid and lower lung zones. COVID positive as of 05/31/21 Remdesivir and Decadron started in the ED 06/03/21, day 2 Supplemental oxygen wean to maintain saturations greater than 92% supportive care Lovenox for DVT Zosyn for bacteria coverage, change to cefepime and vanc Sputum culture ordered Blood cultures pending Albuterol, Robitussin PRN Inflammatory markers: ferritin 1160, LDH 913, CRP 15.1, dimer 3.75 Order IS and Pep therapy, however, I don't think that she will be able to do this (4) Hypernatremia: Code(s): E87.0 - Hyperosmolality and hypernatremia Status: Acute Assessment and Plan: Sodium 155 on labs, corrected 160 since she is hyperglycemic D5w started Trend sodium keep an eye to not correct it too fast. (5) Dysphagia: Code(s): R13.10 - Dysphagia, unspecified Status: Acute Assessment and Plan: Reconsult Speech See aspiration PNA above (6) Parkinsons disease: Code(s): G20 - Parkinson's disease Status: Acute Assessment and Plan: Hold carbidopa/levodopa for now since there is speculation of aspiration Continue when appropriate (7) Hypothyroidism: Code(s): E03.9 - Hypothyroidism, unspecified Status: Acute Assessment and Plan: Last TSH was normal TSH 2.140 Continue home Levothyroxine 25mcg PO daily when appropriate, consider IV (8) Dementia: Code(s): F03.90 - Unspecified dementia without behavioral disturbance Status: Acute Assessment and Plan: Currently on donepezil, mirtazapine, quetiapine, and trazodone Hold for now, NPO Resume when appropriate (9) Sepsis: Code(s): A41.9 - Sepsis, unspecified organism Status: Acute Assessment and Plan: Meets Sirs with Heart rate >90, tachypnea, WBC 17.2, Lactic acid 5.5, possible renal failure with elevated BUN Sofa score is 2 for AMS and tachypnea Source of infection aspiration CTA findings material in the bronchi in the lower lobes and lingula, which may be mucous plugging or aspiration 1L of NS in the ED Changed to D5w for sodium control Blood cultures NGTD Zosyn started for aspiration, changed to cefepime and vanco BP stable at this time (10) Leukocytosis: Code(s): D72.829 - Elevated white blood cell count,
[2021-06-04 09:24] LABS: INR 1.1; Prothrombin Time 13.8 Seconds (11.1-14.7)
[2021-06-04 09:27] LABS: D Dimer 3.75 ug/mL (<0.48)
[2021-06-04 09:37] LABS: Alanine Aminotransferase 24 U/L (4-35); Albumin Level 3.8 g/dL (3.5-5.1); Alkaline Phosphatase 78 U/L (38-126); Anion Gap 9 mmol/L (8-16); Aspartate Amino Transferase 54 U/L (14-36); Blood Urea Nitrogen 27 mg/dL (7-17); Calcium 9.2 mg/dL (8.4-10.2); Carbon Dioxide 30 mmol/L (22-30); Chloride 116 mmol/L (98-107); Estimated CRCL calculation 41 ml/min; Estimated Glomerular Filt Rate > 60; Glucose 299 mg/dL (65-110); Lactate Dehydrogenase 913 U/L (313-618); Potassium 3.8 mmol/L (3.4-5.0); Sodium 155 mmol/L (137-145)
[2021-06-04 09:42] LABS: Atypical Lymphocytes Present; Platelet Estimate Adequate (Adequate)
[2021-06-04 09:49] LABS: CRP 15.1 mg/dL (<1.0)
[2021-06-04] MEDS: REMDESIVIR 100 MG/NS 250 ML 100 MG/250 ML BAG 250 MG IVPB (10:52)
--- NOTE | 2021-06-04 11:03 | PCSTNOTE ---
Please refer to the Bedside Swallow Evaluation in the EMR. Please note, silent aspiration cannot be ruled out at bedside.
[2021-06-04 15:40] LABS: Glucose Point of Care 291 mg/dl (65-105)
[2021-06-04] MEDS: DEXTROSE 5% 1,000 ML 1,000 ML 100 ML IV CONT (15:50)
[2021-06-04] MEDS: INSULIN ASPART (*BKC) 100 UNITS/ML 15 UNITS SUB-Q (15:52)
[2021-06-04] MEDS: INSULIN HUMAN ISOPHAN/REGULAR 70/30 (*BKC) 100 UNITS/ML 30 UNITS SUB-Q (16:28)
[2021-06-04 17:01] LABS: Basophils Absolute Auto 0.1 K/mm3 (0.0-0.1); Basophils Percent Auto 0.3 % (0.2-1.2); Hematocrit 36.1 % (37.0-47.0); Hemoglobin 11.7 g/dL (12.0-15.0); Immature Granulocyte Absolute 0.41 K/mm3 (0.00-0.031); Immature Granulocyte Percent A 1.8 % (0-0.5); Lymphocytes Percent Auto 59.4 % (18.3-44.2); Mean Corpuscular HGB Conc 32.4 g/dl (32-36); Mean Corpuscular Hemoglobin 33.1 pg (26-34); Mean Platelet Volume 10.6 fl (7.4-10.4); Monocytes Absolute Auto 0.9 K/mm3 (0.1-0.6); Monocytes Percent Auto 3.9 % (2.6-8.5); Neutrophils Absolute Auto 8.1 K/mm3 (1.3-6.7); Neutrophils Percent Auto 34.6 % (45.5-73.1); Platelet Count Result 166 k/mm3 (150-375); Red Blood Count 3.54 M/mm3 (4.2-5.4); Red Cell Distribution Width 13.6 % (11.5-14.5); White Blood Count 23.2 K/mm3 (4.5-10.0)
[2021-06-04 17:08] LABS: Alanine Aminotransferase 23 U/L (4-35); Albumin Level 3.5 g/dL (3.5-5.1); Alkaline Phosphatase 71 U/L (38-126); Anion Gap 9 mmol/L (8-16); Aspartate Amino Transferase 50 U/L (14-36); Bilirubin,Total 0.8 mg/dL (0.2-1.3); Blood Urea Nitrogen 26 mg/dL (7-17); Carbon Dioxide 30 mmol/L (22-30); Chloride 116 mmol/L (98-107); Estimated CRCL calculation 41 ml/min; Estimated Glomerular Filt Rate > 60; Glucose 310 mg/dL (65-110); Potassium 4.1 mmol/L (3.4-5.0); Sodium 155 mmol/L (137-145)
[2021-06-04 17:09] LABS: Partial Thromboplastin Time 28.3 SECONDS (22.3-36.8)
[2021-06-04 17:15] LABS: Transferrin 99 mg/dL (206-381)
[2021-06-04 18:06] LABS: Glucose Point of Care 196 mg/dl (65-105)
[2021-06-04 20:43] LABS: Smudge Cells FEW
[2021-06-04 20:44] LABS: Platelet Estimate Adequate (Adequate)
[2021-06-04 20:45] LABS: Burr Cells 1+ (NORMAL)
[2021-06-05] VITALS (9 sets, daily range): BP systolic 116–159; BP diastolic 63–66; PULSE 63–100; RESP 16–18; TEMP 36.8–37.4; O2SAT 93–95
[2021-06-05] MEDS: DEXTROSE 50% 25 GM/50 ML SYRINGE IV PUSH (00:51)
[2021-06-05 00:58] LABS: Glucose Point of Care 46 mg/dl (65-105)
[2021-06-05 00:58] LABS: Glucose Point of Care 115 mg/dl (65-105)
[2021-06-05 01:48] LABS: Glucose Point of Care 116 mg/dl (65-105)
[2021-06-05] MEDS: DEXTROSE 5% 1,000 ML 1,000 ML 100 ML IV CONT (06:49)
[2021-06-05 07:04] LABS: Glucose Point of Care 55 mg/dl (65-105)
[2021-06-05 08:29] LABS: Glucose Point of Care 101 mg/dl (65-105)
[2021-06-05] MEDS: AMINO ACIDS 4.25%/D5W/LYTES/CA 2,000 ML 80 ML IV CONT (08:44)
[2021-06-05] MEDS: FAT EMULSIONS IV 20% 250 ML 20.83 ML IVPB (08:45)
[2021-06-05] MEDS: ENOXAPARIN 30 MG/0.3 ML SYRINGE SUB-Q (08:46)
[2021-06-05 10:34] LABS: INR 1.3; Prothrombin Time 15.7 Seconds (11.1-14.7)
[2021-06-05 10:36] LABS: D Dimer 3.26 ug/mL (<0.48)
[2021-06-05 11:00] LABS: Alanine Aminotransferase 20 U/L (4-35); Albumin Level 2.8 g/dL (3.5-5.1); Alkaline Phosphatase 51 U/L (38-126); Anion Gap 6 mmol/L (8-16); Aspartate Amino Transferase 50 U/L (14-36); Bilirubin,Total 0.7 mg/dL (0.2-1.3); Blood Urea Nitrogen 24 mg/dL (7-17); Calcium 8.1 mg/dL (8.4-10.2); Carbon Dioxide 25 mmol/L (22-30); Chloride 117 mmol/L (98-107); Estimated CRCL calculation 49 ml/min; Estimated Glomerular Filt Rate > 60; Glucose 83 mg/dL (65-110); Lactate Dehydrogenase 825 U/L (313-618); Potassium 2.7 mmol/L (3.4-5.0); Sodium 148 mmol/L (137-145)
--- NOTE | 2021-06-05 11:00 | PM.IMPN ---
Progress Note: A&P Assessment and Plan (1) Acute respiratory failure with hypoxia: Code(s): J96.01 - Acute respiratory failure with hypoxia Status: Acute Assessment and Plan: [facility]s at the [facility] Placed on 5LNC per EMS, currently on RA Supplemental O2, currently on room air ABG is normal with hypoxia, PaO2 68.8, but saturation on gas was 94.5 Wean supplemental oxygen to maintain saturation above 92% (2) Aspiration pneumonia: Code(s): J69.0 - Pneumonitis due to inhalation of food and vomit Status: Acute Assessment and Plan: CTA findings material in the bronchi in the lower lobes and lingula, which may be mucous plugging or aspiration Speech has seen in the past, recommended non oral, but settled on mildly thicken liquids, pureed, and no cups or straws fluids per spoon only, up right sitting and multiple swallows Family did not want feeding tube at that time WBC is down to 9.4 Blood cultures obtained Continue cefepime and vanco Keep NPO for now, for mental status and aspiration Reconsult Speech therapy, continue to NPO Consult bus monitor since patient could potentially need tube feedings Trend labs Repeat chest xray in the am (3) Pneumonia due to COVID-19 virus: Code(s): U07.1 - COVID-19; J12.82 - Pneumonia due to coronavirus disease 2018 Status: Acute Assessment and Plan: Chest xray shows Airspace opacities in the mid and lower lung zones, consistent with pneumonia. CTA shows Multifocal pneumonia involving all lobes predominantly in the mid and lower lung zones. COVID positive as of 05/31/21 Remdesivir and Decadron started in the ED 06/03/21, day 3, DC at this time since there is no respiratory problems at this time Supplemental oxygen wean to maintain saturations greater than 92% supportive care Lovenox for DVT Zosyn for bacteria coverage, change to cefepime and vanc Sputum culture ordered Blood cultures NGTD Albuterol, Robitussin PRN Inflammatory markers: ferritin 732, LDH 825, CRP 5.0, dimer 3.26 Order IS and Pep therapy, however, I don't think that she will be able to do this (4) Hypernatremia: Code(s): E87.0 - Hyperosmolality and hypernatremia Status: Acute Assessment and Plan: Sodium 148 on labs Continue D5w started Trend sodium keep an eye to not correct it too fast (5) Dysphagia: Code(s): R13.10 - Dysphagia, unspecified Status: Acute Assessment and Plan: Reconsult Speech See aspiration PNA above (6) Parkinsons disease: Code(s): G20 - Parkinson's disease Status: Acute Assessment and Plan: Hold carbidopa/levodopa for now since there is speculation of aspiration Continue when appropriate (7) Hypothyroidism: Code(s): E03.9 - Hypothyroidism, unspecified Status: Acute Assessment and Plan: Last TSH was normal TSH 2.140 Continue home Levothyroxine 25mcg PO daily when appropriate, consider IV (8) Dementia: Code(s): F03.90 - Unspecified dementia without behavioral disturbance Status: Acute Assessment and Plan: Currently on donepezil, mirtazapine, quetiapine, and trazodone Hold for now, NPO Resume when appropriate (9) Sepsis: Code(s): A41.9 - Sepsis, unspecified organism Status: Acute Assessment and Plan: Meets Sirs with Heart rate >90, tachypnea, WBC 17.2, Lactic acid 5.5, possible renal failure with elevated BUN Sofa score is 2 for AMS and tachypnea Source of infection aspiration CTA findings material in the bronchi in the lower lobes and lingula, which may be mucous plugging or aspiration 1L of NS in the ED Changed to D5w for sodium control Blood cultures NGTD Continue cefepime and vanco BP stable at this time (10) Leukocytosis: Code(s): D72.829 - Elevated white blood cell count, unspecified
--- NOTE | 2021-06-05 11:00 | P.PNIM_ITS ---
Progress Note: A&P Assessment and Plan (1) Acute respiratory failure with hypoxia: Code(s): J96.01 - Acute respiratory failure with hypoxia Status: Acute Assessment and Plan: * Saturation in the 80s at the half-way * Placed on 5LNC per EMS, currently on RA * Supplemental O2, currently on room air * ABG is normal with hypoxia, PaO2 68.8, but saturation on gas was 94.5 * Wean supplemental oxygen to maintain saturation above 92% (2) Aspiration pneumonia: Code(s): J69.0 - Pneumonitis due to inhalation of food and vomit Status: Acute Assessment and Plan: * CTA findings material in the bronchi in the lower lobes and lingula, which may be mucous plugging or aspiration * Speech has seen in the past, recommended non oral, but settled on mildly thicken liquids, pureed, and no cups or straws fluids per spoon only, up right sitting and multiple swallows * Family did not want feeding tube at that time * WBC is down to 9.4 * Blood cultures obtained * Continue cefepime and vanco * Keep NPO for now, for mental status and aspiration * Reconsult Speech therapy, continue to NPO * Consult bilingual speech therapist since patient could potentially need tube feedings * Trend labs * Repeat chest xray in the am (3) Pneumonia due to COVID-19 virus: Code(s): U07.1 - COVID-19; J12.82 - Pneumonia due to coronavirus disease 2018 Status: Acute Assessment and Plan: * Chest xray shows Airspace opacities in the mid and lower lung zones, consistent with pneumonia. * CTA shows Multifocal pneumonia involving all lobes predominantly in the mid and lower lung zones. * COVID positive as of 05/31/21 * Remdesivir and Decadron started in the ED 06/03/21, day 3, DC at this time since there is no respiratory problems at this time * Supplemental oxygen wean to maintain saturations greater than 92% * supportive care * Lovenox for DVT * Zosyn for bacteria coverage, change to cefepime and vanc * Sputum culture ordered * Blood cultures NGTD * Albuterol, Robitussin PRN * Inflammatory markers: ferritin 732, LDH 825, CRP 5.0, dimer 3.26 * Order IS and Pep therapy, however, I don't think that she will be able to do this (4) Hypernatremia: Code(s): E87.0 - Hyperosmolality and hypernatremia Status: Acute Assessment and Plan: * Sodium 148 on labs * Continue D5w started * Trend sodium * keep an eye to not correct it too fast (5) Dysphagia: Code(s): R13.10 - Dysphagia, unspecified Status: Acute Assessment and Plan: * Reconsult Speech * See aspiration PNA above (6) Parkinsons disease: Code(s): G20 - Parkinson's disease Status: Acute Assessment and Plan: * Hold carbidopa/levodopa for now since there is speculation of aspiration * Continue when appropriate (7) Hypothyroidism: Code(s): E03.9 - Hypothyroidism, unspecified Status: Acute Assessment and Plan: * Last TSH was normal * TSH 2.140 * Continue home Levothyroxine 25mcg PO daily when appropriate, consider IV (8) Dementia: Code(s): F03.90 - Unspecified dementia without behavioral disturbance Status: Acute Assessment and Plan: * Currently on donepezil, mirtazapine, quetiapine, and trazodone * Hold for now, NPO * Resume when appropriate (9) Sepsis: Code(s): A41.9 - Sepsis, unspecified organism Status: Acu
[2021-06-05 11:19] LABS: Basophils Percent Auto 0.2 % (0.2-1.2); Hematocrit 32.2 % (37.0-47.0); Hemoglobin 10.1 g/dL (12.0-15.0); Immature Granulocyte Absolute 0.13 K/mm3 (0.00-0.031); Immature Granulocyte Percent A 1.4 % (0-0.5); Lymphocytes Absolute Auto 3.18 K/mm3 (0.9-3.2); Lymphocytes Percent Auto 33.8 % (18.3-44.2); Mean Corpuscular HGB Conc 31.4 g/dl (32-36); Mean Corpuscular Hemoglobin 31.4 pg (26-34); Mean Platelet Volume 10.3 fl (7.4-10.4); Monocytes Absolute Auto 0.2 K/mm3 (0.1-0.6); Monocytes Percent Auto 1.7 % (2.6-8.5); Neutrophils Absolute Auto 5.9 K/mm3 (1.3-6.7); Neutrophils Percent Auto 62.9 % (45.5-73.1); Platelet Count Result 141 k/mm3 (150-375); Red Blood Count 3.22 M/mm3 (4.2-5.4); Red Cell Distribution Width 13.8 % (11.5-14.5); White Blood Count 9.4 K/mm3 (4.5-10.0)
[2021-06-05 12:33] LABS: Glucose Point of Care 102 mg/dl (65-105)
[2021-06-05] MEDS: POTASSIUM CHLORIDE INJ 40 MEQ in SODIUM CHLORIDE 0.9% IV 500 ML 130 MEQ IVPB (12:35)
[2021-06-05] MEDS: LORazepam INJ (*CRX) 2 MG/ML VIAL 0.25 MG IV PUSH (13:18)
[2021-06-05 15:52] LABS: Triglycerides 153 mg/dL (<150)
[2021-06-05 17:34] LABS: Glucose Point of Care 168 mg/dl (65-105)
[2021-06-05 19:10] LABS: Glucose Point of Care 218 mg/dl (65-105)
[2021-06-05] MEDS: INSULIN ASPART (*BKC) 100 UNITS/ML SUB-Q (20:38)
[2021-06-05] MEDS: INSULIN GLARGINE (*BKC) 100 UNITS/ML 20 UNITS SUB-Q (20:41)
[2021-06-05 23:24] LABS: Glucose Point of Care 224 mg/dl (65-105)
[2021-06-06] VITALS (7 sets, daily range): BP systolic 123–134; BP diastolic 60–88; PULSE 60–70; RESP 16–20; TEMP 36.1–37.2; O2SAT 88–92
[2021-06-06] MEDS: CENTRAL LINE FLUSH 10 ML IV PUSH ×3 (00:58→13:00)
[2021-06-06 01:36] LABS: Glucose Point of Care 124 mg/dl (65-105)
[2021-06-06] MEDS: DEXTROSE 5% 1,000 ML 1,000 ML 100 ML IV CONT (04:13)
[2021-06-06 05:01] LABS: INR 1.2; Prothrombin Time 15.3 Seconds (11.1-14.7)
[2021-06-06 05:17] LABS: Alanine Aminotransferase 18 U/L (4-35); Anion Gap 5 mmol/L (8-16); Blood Urea Nitrogen 20 mg/dL (7-17); Calcium 7.7 mg/dL (8.4-10.2); Carbon Dioxide 30 mmol/L (22-30); Chloride 107 mmol/L (98-107); Estimated CRCL calculation 41 ml/min; Estimated Glomerular Filt Rate > 60; Glucose 213 mg/dL (65-110); Phosphorus 2.8 mg/dL (2.5-4.5); Potassium 2.8 mmol/L (3.4-5.0); Sodium 142 mmol/L (137-145)
[2021-06-06 06:02] LABS: Glucose Point of Care 212 mg/dl (65-105)
[2021-06-06] MEDS: INSULIN ASPART (*BKC) 100 UNITS/ML SUB-Q ×5 (06:02→20:55)
[2021-06-06] MEDS: LEVOTHYROXINE SODIUM INJ 100 MCG/5 ML VIAL 12.5 MCG IV PUSH (06:37)
[2021-06-06] MEDS: POTASSIUM CHLORIDE INJ 40 MEQ in SODIUM CHLORIDE 0.9% IV 500 ML 130 MEQ IVPB (06:43)
[2021-06-06 07:31] LABS: Alanine Aminotransferase 17 U/L (4-35); Albumin Level 2.4 g/dL (3.5-5.1); Alkaline Phosphatase 42 U/L (38-126); Aspartate Amino Transferase 39 U/L (14-36); Bilirubin,Total 0.6 mg/dL (0.2-1.3)
--- NOTE | 2021-06-06 09:00 | PM.IMPN ---
Progress Note: A&P Assessment and Plan (1) Acute respiratory failure with hypoxia: Code(s): J96.01 - Acute respiratory failure with hypoxia Status: Acute Assessment and Plan: Saturation in the 80s at the intermediate Placed on 5LNC per EMS, currently on RA, saturation are charted to be low One dose of Lasix ordered at this time Elevate head of bed Supplemental O2, currently on room air ABG is normal with hypoxia, PaO2 68.8, but saturation on gas was 94.5 Wean supplemental oxygen to maintain saturation above 92% (2) Aspiration pneumonia: Code(s): J69.0 - Pneumonitis due to inhalation of food and vomit Status: Acute Assessment and Plan: CTA findings material in the bronchi in the lower lobes and lingula, which may be mucous plugging or aspiration Speech has seen in the past, recommended non oral, but settled on mildly thicken liquids, pureed, and no cups or straws fluids per spoon only, up right sitting and multiple swallows Family did not want feeding tube at that time WBC is 13 Blood cultures obtained Continue cefepime and vanco Keep NPO for now, for mental status and aspiration Reconsult Speech therapy, continue to NPO Consult geotechnical department manager since patient could potentially need tube feedings Trend labs Continue TPN since she has a PICC line (3) Pneumonia due to COVID-19 virus: Code(s): U07.1 - COVID-19; J12.82 - Pneumonia due to coronavirus disease 2019 Status: Acute Assessment and Plan: Chest xray shows Airspace opacities in the mid and lower lung zones, consistent with pneumonia. CTA shows Multifocal pneumonia involving all lobes predominantly in the mid and lower lung zones. COVID positive as of 05/31/21 Remdesivir and Decadron started in the ED 06/03/21, day 3, DC at this time since there is no respiratory problems at this time Supplemental oxygen wean to maintain saturations greater than 92% supportive care Lovenox for DVT Zosyn for bacteria coverage, change to cefepime and vanc Sputum culture ordered Blood cultures NGTD Albuterol, Robitussin PRN Inflammatory markers: ferritin 732, LDH 825, CRP 5.0, dimer 3.26 Order IS and Pep therapy, however, I don't think that she will be able to do this (4) Hypernatremia: Code(s): E87.0 - Hyperosmolality and hypernatremia Status: Acute Assessment and Plan: Sodium 142 on labs Continue D5w started Trend sodium keep an eye to not correct it too fast (5) Dysphagia: Code(s): R13.10 - Dysphagia, unspecified Status: Acute Assessment and Plan: Reconsult Speech See aspiration PNA above (6) Parkinsons disease: Code(s): G20 - Parkinson's disease Status: Acute Assessment and Plan: Hold carbidopa/levodopa for now since there is speculation of aspiration Continue when appropriate (7) Hypothyroidism: Code(s): E03.9 - Hypothyroidism, unspecified Status: Acute Assessment and Plan: Last TSH was normal TSH 2.140 Continue home Levothyroxine 25mcg PO daily when appropriate, consider IV (8) Dementia: Code(s): F03.90 - Unspecified dementia without behavioral disturbance Status: Acute Assessment and Plan: Currently on donepezil, mirtazapine, quetiapine, and trazodone Hold for now, NPO Resume when appropriate (9) Sepsis: Code(s): A41.9 - Sepsis, unspecified organism Status: Acute Assessment and Plan: Meets Sirs with Heart rate >90, tachypnea, WBC 17.2, Lactic acid 5.5, possible renal failure with elevated BUN Sofa score is 2 for AMS and tachypnea Source of infection aspiration CTA findings material in the bronchi in the lower lobes and lingula, which may be mucous plugging or aspiration 1L of NS in the ED Changed to D5w for sodium control Blood cultures NGTD Continue cefepime and vanco BP stable at this time
--- NOTE | 2021-06-06 09:00 | P.PNIM_ITS ---
Progress Note: A&P Assessment and Plan (1) Acute respiratory failure with hypoxia: Code(s): J96.01 - Acute respiratory failure with hypoxia Status: Acute Assessment and Plan: * [facility] 80s [facility] the [facility] * Placed on 5LNC per EMS, currently on RA, saturation are charted to be low * One dose of Lasix ordered at this time * Elevate head of bed * Supplemental O2, currently on room air * ABG is normal with hypoxia, PaO2 68.8, but saturation on gas was 94.5 * Wean supplemental oxygen to maintain saturation above 92% (2) Aspiration pneumonia: Code(s): J69.0 - Pneumonitis due to inhalation of food and vomit Status: Acute Assessment and Plan: * CTA findings material in the bronchi in the lower lobes and lingula, which may be mucous plugging or aspiration * Speech has seen in the past, recommended non oral, but settled on mildly thicken liquids, pureed, and no cups or straws fluids per spoon only, up right sitting and multiple swallows * Family did not want feeding tube at that time * WBC is 13 * Blood cultures obtained * Continue cefepime and vanco * Keep NPO for now, for mental status and aspiration * Reconsult Speech therapy, continue to NPO * Consult staple shear operator since patient could potentially need tube feedings * Trend labs * Continue TPN since she has a PICC line (3) Pneumonia due to COVID-19 virus: Code(s): U07.1 - COVID-19; J12.82 - Pneumonia due to coronavirus disease 2019 Status: Acute Assessment and Plan: * Chest xray shows Airspace opacities in the mid and lower lung zones, c onsistent with pneumonia. * CTA shows Multifocal pneumonia involving all lobes predominantly in the mid and lower lung zones. * COVID positive as of 05/31/21 * Remdesivir and Decadron started in the ED 06/03/21, day 3, DC at this time since there is no respiratory problems at this time * Supplemental oxygen wean to maintain saturations greater than 92% * supportive care * Lovenox for DVT * Zosyn for bacteria coverage, change to cefepime and vanc * Sputum culture ordered * Blood cultures NGTD * Albuterol, Robitussin PRN * Inflammatory markers: ferritin 732, LDH 825, CRP 5.0, dimer 3.26 * Order IS and Pep therapy, however, I don't think that she will be able to do this (4) Hypernatremia: Code(s): E87.0 - Hyperosmolality and hypernatremia Status: Acute Assessment and Plan: * Sodium 142 on labs * Continue D5w started * Trend sodium * keep an eye to not correct it too fast (5) Dysphagia: Code(s): R13.10 - Dysphagia, unspecified Status: Acute Assessment and Plan: * Reconsult Speech * See aspiration PNA above (6) Parkinsons disease: Code(s): G20 - Parkinson's disease Status: Acute Assessment and Plan: * Hold carbidopa/levodopa for now since there is speculation of aspiration * Continue when appropriate (7) Hypothyroidism: Code(s): E03.9 - Hypothyroidism, unspecified Status: Acute Assessment and Plan: * Last TSH was normal * TSH 2.140 * Continue home Levothyroxine 25mcg PO daily when appropriate, consider IV (8) Dementia: Code(s): F03.90 - Unspecified dementia without behavioral disturbance Status: Acute Assessment and Plan: * Currently on donepezil, mirtazapine, quetiapine, and trazodone * Hold for now, NPO * Resume when appropriate
[2021-06-06] MEDS: AMINO ACIDS 4.25%/D5W/LYTES/CA 2,000 ML 80 ML IV CONT (09:29)
[2021-06-06] MEDS: FAT EMULSIONS IV 20% 250 ML 20.83 ML IVPB (09:29)
[2021-06-06] MEDS: ENOXAPARIN 30 MG/0.3 ML SYRINGE SUB-Q (09:30)
[2021-06-06 09:55] LABS: Basophils Percent Auto 0.2 % (0.2-1.2); Hematocrit 25.3 % (37.0-47.0); Hemoglobin 7.8 g/dL (12.0-15.0); Immature Granulocyte Percent A 0.8 % (0-0.5); Lymphocytes Absolute Auto 8.28 K/mm3 (0.9-3.2); Lymphocytes Percent Auto 63.9 % (18.3-44.2); Mean Corpuscular HGB Conc 30.8 g/dl (32-36); Mean Corpuscular Hemoglobin 31.6 pg (26-34); Mean Corpuscular Volume 102.4 fl (80-100); Mean Platelet Volume 10.4 fl (7.4-10.4); Monocytes Absolute Auto 0.3 K/mm3 (0.1-0.6); Monocytes Percent Auto 2.4 % (2.6-8.5); Neutrophils Absolute Auto 4.2 K/mm3 (1.3-6.7); Neutrophils Percent Auto 32.7 % (45.5-73.1); Platelet Count Result 105 k/mm3 (150-375); Red Blood Count 2.47 M/mm3 (4.2-5.4); Red Cell Distribution Width 13.5 % (11.5-14.5)
[2021-06-06 10:27] LABS: Ovalocytes 1+ (NORMAL); Platelet Estimate Decreased (Adequate)
[2021-06-06 10:28] LABS: Crenated RBC 1+ (NORMAL)
[2021-06-06 10:33] LABS: Glucose Point of Care 190 mg/dl (65-105)
[2021-06-06 12:51] LABS: Glucose Point of Care 194 mg/dl (65-105)
--- NOTE | 2021-06-06 13:36 | PCNFU ---
Nutrition Follow-Up Complete: Swallowing difficulties related to acute respiratory failure as evidenced by results of swallowing study Goal: Meet nutritional needs Pt. is progressing towards goal. No new goal at tis time. Pt current nutrition is on Clinimix E 4.25/5 at 80 mls per hour and 250 mls of 20% lipid emulsion providing 1153 calories. Last recorded weight is 40 kg. Recommend re-weighing prior to discharge to assess significant weight changes. Bowel Motility: No BM documented Labs Reviewed: Hgb 7.8, Hct 25.3, POC capillary glucose 194 Meds Noted: Albuterol, Bisacodyl, Lovenox, Glucagon, Glucose, Novolog, Lantus, Synthroid, Vancomycin Hcl Skin: right heel deep tissue pressure ulcer and coccyx deep tissue pressure ulcer Additional Notes: Pt. has aspiration pneumonia likely due to food and vomit inhalation. Was seen by speech who recommended nothing orally but settled on mildly thickened liquids and pureed. Family did not want tube feeding at that time. Continue monitoring PPN. Will monitor every T/F
[2021-06-06] MEDS: FUROSEMIDE INJ 40 MG/4 ML VIAL 20 MG IV PUSH (15:09)
[2021-06-06] MEDS: AMINO ACIDS 5%/D15W/E-LYTES/CA 2,000 ML with MULTIVITAMINS-12 INJ VIAL 1 2.5 ML, MULTIV... 40 ML IV CONT (15:14)
[2021-06-06 15:31] LABS: Basophils Percent Auto 0.1 % (0.2-1.2); Hematocrit 32.9 % (37.0-47.0); Hemoglobin 10.8 g/dL (12.0-15.0); Immature Granulocyte Absolute 0.15 K/mm3 (0.00-0.031); Immature Granulocyte Percent A 1.2 % (0-0.5); Lymphocytes Absolute Auto 6.71 K/mm3 (0.9-3.2); Lymphocytes Percent Auto 55.3 % (18.3-44.2); Mean Corpuscular HGB Conc 32.8 g/dl (32-36); Mean Corpuscular Hemoglobin 31.5 pg (26-34); Mean Corpuscular Volume 95.9 fl (80-100); Mean Platelet Volume 10.5 fl (7.4-10.4); Monocytes Absolute Auto 0.2 K/mm3 (0.1-0.6); Monocytes Percent Auto 1.5 % (2.6-8.5); Neutrophils Absolute Auto 5.1 K/mm3 (1.3-6.7); Neutrophils Percent Auto 41.9 % (45.5-73.1); Platelet Count Result 140 k/mm3 (150-375); Red Blood Count 3.43 M/mm3 (4.2-5.4); Red Cell Distribution Width 13.4 % (11.5-14.5); White Blood Count 12.1 K/mm3 (4.5-10.0)
[2021-06-06 15:44] LABS: Partial Thromboplastin Time 32.2 SECONDS (22.3-36.8)
[2021-06-06 15:55] LABS: Magnesium 1.7 mg/dL (1.6-2.3)
[2021-06-06 16:02] LABS: Transferrin 91 mg/dL (206-381)
[2021-06-06 16:10] LABS: NT Pro B Type Natriuretic Pept 1600 pg/mL (5-100)
[2021-06-06 16:57] LABS: Glucose Point of Care 180 mg/dl (65-105)
[2021-06-06 20:46] LABS: Glucose Point of Care 245 mg/dl (65-105)
[2021-06-06] MEDS: INSULIN GLARGINE (*BKC) 100 UNITS/ML 20 UNITS SUB-Q (20:56)
[2021-06-07] VITALS (7 sets, daily range): BP systolic 122–159; BP diastolic 60–91; PULSE 58–71; RESP 16–26; TEMP 36.1–36.4; O2SAT 90
[2021-06-07] MEDS: CENTRAL LINE FLUSH 10 ML IV PUSH ×4 (01:10→22:14)
[2021-06-07] MEDS: LEVOTHYROXINE SODIUM INJ 100 MCG/5 ML VIAL 12.5 MCG IV PUSH (05:50)
[2021-06-07] MEDS: INSULIN ASPART (*BKC) 100 UNITS/ML SUB-Q ×3 (06:04→17:16)
[2021-06-07 07:06] LABS: Alanine Aminotransferase 17 U/L (4-35); Anion Gap 7 mmol/L (8-16); Blood Urea Nitrogen 22 mg/dL (7-17); Calcium 7.7 mg/dL (8.4-10.2); Carbon Dioxide 29 mmol/L (22-30); Chloride 103 mmol/L (98-107); Estimated CRCL calculation 41 ml/min; Estimated Glomerular Filt Rate > 60; Glucose 235 mg/dL (65-110); Phosphorus 2.5 mg/dL (2.5-4.5); Potassium 2.8 mmol/L (3.4-5.0); Sodium 139 mmol/L (137-145)
[2021-06-07 07:09] LABS: INR 1.1; Prothrombin Time 14.2 Seconds (11.1-14.7)
[2021-06-07 08:00] LABS: Glucose Point of Care 223 mg/dl (65-105)
[2021-06-07] MEDS: ENOXAPARIN 30 MG/0.3 ML SYRINGE SUB-Q (08:14)
[2021-06-07] MEDS: FAT EMULSIONS IV 20% 250 ML 20.83 ML IVPB (08:15)
[2021-06-07 09:20] LABS: Glucose Point of Care 134 mg/dl (65-105)
--- NOTE | 2021-06-07 09:33 | PCOTNOTE ---
Nursing reports unable to respond to name or commands. Nursing reports confusion from pt. Should condition improve, please enter new OT orders.
--- NOTE | 2021-06-07 09:38 | P.PN_ITS ---
Progress Note: A&P Assessment and Plan (1) Acute respiratory failure with hypoxia: Code(s): J96.01 - Acute respiratory failure with hypoxia Status: Acute Assessment and Plan: * Saturation in the 80s at the [facility] * Placed on 5LNC per EMS, currently on RA, saturation are charted to be low * One dose of Lasix ordered at this time * Elevate head of bed * Supplemental O2, currently on room air * ABG is normal with hypoxia, PaO2 68.8, but saturation on gas was 94.5 * Wean supplemental oxygen to maintain saturation above 92% (2) Aspiration pneumonia: Code(s): J69.0 - Pneumonitis due to inhalation of food and vomit Status: Acute Assessment and Plan: * CTA findings material in the bronchi in the lower lobes and lingula, which may be mucous plugging or aspiration * Speech has seen in the past, recommended non oral, but settled on mildly thicken liquids, pureed, and no cups or straws fluids per spoon only, up right sitting and multiple swallows * Family did not want feeding tube at that time * WBC is 13>12.1 today's pending * Blood cultures obtained * Continue cefepime and vanco * Keep NPO for now, for mental status and aspiration * Reconsult Speech therapy, continue to NPO * Consult airplane engineer since patient could potentially need tube feedings * Trend labs * Continue TPN since she has a PICC line (3) Pneumonia due to COVID-19 virus: Code(s): U07.1 - COVID-19; J12.82 - Pneumonia due to coronavirus disease 2019 Status: Acute Assessment and Plan: * Chest xray shows Airspace opacities in the mid and lower lung zones, consistent with pneumonia. * CTA shows Multifocal pneumonia involving all lobes predominantly in the mid and lower lung zones. * COVID positive as of 05/31/21 * Remdesivir and Decadron started in the ED 06/03/21, day 4. Remdesivir discontinue * Supplemental oxygen wean to maintain saturations greater than 92% * supportive care * Lovenox for DVT * cont zosyn and vanc * Blood cultures NGTD * Albuterol, Robitussin PRN * (4) Hypernatremia: Code(s): E87.0 - Hyperosmolality and hypernatremia Status: Acute Assessment and Plan: * Sodium 139 on * Continue D5w started * Trend sodium (5) Dysphagia: Code(s): R13.10 - Dysphagia, unspecified Status: Acute Assessment and Plan: * Reconsult Speech * See aspiration PNA above (6) Parkinsons disease: Code(s): G20 - Parkinson's disease Status: Acute Assessment and Plan: * Hold carbidopa/levodopa for now since there is speculation of aspiration * Continue when appropriate (7) Hypothyroidism: Code(s): E03.9 - Hypothyroidism, unspecified Status: Acute Assessment and Plan: * Last TSH was normal * TSH 2.140 * Continue home Levothyroxine 25mcg PO daily when appropriate, consider IV (8) Dementia: Code(s): F03.90 - Unspecified dementia without behavioral disturbance Status: Acute Assessment and Plan: * Currently on donepezil, mirtazapine, quetiapine, and trazodone * Hold for now, NPO * Resume when appropriate (9) Sepsis: Code(s): A41.9 - Sepsis, unspecified organism Status: Acute Assessment and Plan: * Meets Sirs with Heart rate >90, tachypnea, WBC 17.2, Lactic acid 5.5, possible renal failure with elevated BUN * Sofa score
--- NOTE | 2021-06-07 09:38 | WPDPN ---
Progress Note: A&P Assessment and Plan (1) Acute respiratory failure with hypoxia: Code(s): J96.01 - Acute respiratory failure with hypoxia Status: Acute Assessment and Plan: Saturation in the 80s at the [facility] Placed on 5LNC per EMS, currently on RA, saturation are charted to be low One dose of Lasix ordered at this time Elevate head of bed Supplemental O2, currently on room air ABG is normal with hypoxia, PaO2 68.8, but saturation on gas was 94.5 Wean supplemental oxygen to maintain saturation above 92% (2) Aspiration pneumonia: Code(s): J69.0 - Pneumonitis due to inhalation of food and vomit Status: Acute Assessment and Plan: CTA findings material in the bronchi in the lower lobes and lingula, which may be mucous plugging or aspiration Speech has seen in the past, recommended non oral, but settled on mildly thicken liquids, pureed, and no cups or straws fluids per spoon only, up right sitting and multiple swallows Family did not want feeding tube at that time WBC is 13>12.1 today's pending Blood cultures obtained Continue cefepime and vanco Keep NPO for now, for mental status and aspiration Reconsult Speech therapy, continue to NPO Consult shoe repair cobbler since patient could potentially need tube feedings Trend labs Continue TPN since she has a PICC line (3) Pneumonia due to COVID-19 virus: Code(s): U07.1 - COVID-19; J12.82 - Pneumonia due to coronavirus disease 2019 Status: Acute Assessment and Plan: Chest xray shows Airspace opacities in the mid and lower lung zones, consistent with pneumonia. CTA shows Multifocal pneumonia involving all lobes predominantly in the mid and lower lung zones. COVID positive as of 05/31/21 Remdesivir and Decadron started in the ED 06/03/21, day 4. Remdesivir discontinue Supplemental oxygen wean to maintain saturations greater than 92% supportive care Lovenox for DVT cont zosyn and vanc Blood cultures NGTD Albuterol, Robitussin PRN (4) Hypernatremia: Code(s): E87.0 - Hyperosmolality and hypernatremia Status: Acute Assessment and Plan: Sodium 139 on Continue D5w started Trend sodium (5) Dysphagia: Code(s): R13.10 - Dysphagia, unspecified Status: Acute Assessment and Plan: Reconsult Speech See aspiration PNA above (6) Parkinsons disease: Code(s): G20 - Parkinson's disease Status: Acute Assessment and Plan: Hold carbidopa/levodopa for now since there is speculation of aspiration Continue when appropriate (7) Hypothyroidism: Code(s): E03.9 - Hypothyroidism, unspecified Status: Acute Assessment and Plan: Last TSH was normal TSH 2.140 Continue home Levothyroxine 25mcg PO daily when appropriate, consider IV (8) Dementia: Code(s): F03.90 - Unspecified dementia without behavioral disturbance Status: Acute Assessment and Plan: Currently on donepezil, mirtazapine, quetiapine, and trazodone Hold for now, NPO Resume when appropriate (9) Sepsis: Code(s): A41.9 - Sepsis, unspecified organism Status: Acute Assessment and Plan: Meets Sirs with Heart rate >90, tachypnea, WBC 17.2, Lactic acid 5.5, possible renal failure with elevated BUN Sofa score is 2 for AMS and tachypnea Source of infection aspiration CTA findings material in the bronchi in the lower lobes and lingula, which may be mucous plugging or aspiration 1L of NS in the ED Changed to D5w for sodium control Blood cultures NGTD Continue zosyn and vanco BP stable at this time (10) Leukocytosis: Code(s): D72.829 - Elevated white blood cell count, unspecified Status: Acute Assessment and Plan: WBC 13>12.1 not resulted for today Antibiotics on board Probably from aspiration Trend labs Could be a component of st
[2021-06-07] MEDS: POTASSIUM CHLORIDE INJ 40 MEQ in SODIUM CHLORIDE 0.9% IV 500 ML 130 MEQ IVPB (10:00)
--- NOTE | 2021-06-07 11:39 | PCPTNOTE ---
Nursing reports that patient is not able respond to cues or commands and does not arouse to her name. Her baseline is dependent care. Will d/c PT order at this time. If patient becomes more responsive to participate please enter new PT orders.
[2021-06-07 12:42] LABS: Glucose Point of Care 192 mg/dl (65-105)
[2021-06-07] MEDS: AMINO ACIDS 5%/D15W/E-LYTES/CA 2,000 ML with MULTIVITAMINS-12 INJ VIAL 1 2.5 ML, MULTIV... 40 ML IV CONT (14:28)
[2021-06-07 15:25] LABS: Triglycerides 632 mg/dL (<150)
[2021-06-07 16:20] LABS: Vancomycin Trough < 5.0 ug/mL (10.0-20.0)
[2021-06-07 16:51] LABS: Glucose Point of Care 153 mg/dl (65-105)
[2021-06-07 20:43] LABS: Glucose Point of Care 136 mg/dl (65-105)
[2021-06-07] MEDS: INSULIN GLARGINE (*BKC) 100 UNITS/ML 20 UNITS SUB-Q (22:12)
[2021-06-08] VITALS: BP 118/75; PULSE 68; PULSE 69; RESP 22; TEMP 36.1; O2SAT 91
[2021-06-08 04:00] VITALS: BP 129/70; PULSE 68; PULSE 78; RESP 24; TEMP 36.3; O2SAT 94
[2021-06-08 05:36] LABS: Glucose Point of Care 146 mg/dl (65-105)
[2021-06-08 07:18] LABS: Anion Gap 5 mmol/L (8-16); Blood Urea Nitrogen 20 mg/dL (7-17); Calcium 7.8 mg/dL (8.4-10.2); Carbon Dioxide 28 mmol/L (22-30); Chloride 105 mmol/L (98-107); Estimated CRCL calculation 59 ml/min; Estimated Glomerular Filt Rate > 60; Glucose 176 mg/dL (65-110); Phosphorus 2.8 mg/dL (2.5-4.5); Potassium 3.5 mmol/L (3.4-5.0); Sodium 138 mmol/L (137-145)
[2021-06-08 08:00] VITALS: BP 93/57; PULSE 74; RESP 14; TEMP 37.1; O2SAT 85
[2021-06-08] MEDS: LEVOTHYROXINE SODIUM INJ 100 MCG/5 ML VIAL 12.5 MCG IV PUSH (08:00)
[2021-06-08] MEDS: CENTRAL LINE FLUSH 10 ML IV PUSH ×2 (08:01→13:05)
[2021-06-08] MEDS: FAT EMULSIONS IV 20% 250 ML 20.83 ML IVPB (08:48)
[2021-06-08] MEDS: ENOXAPARIN 30 MG/0.3 ML SYRINGE SUB-Q (08:48)
[2021-06-08] MEDS: INSULIN ASPART (*BKC) 100 UNITS/ML SUB-Q ×3 (08:57→17:48)
--- NOTE | 2021-06-08 09:48 | P.PN_ITS ---
Progress Note: A&P Assessment and Plan (1) Acute respiratory failure with hypoxia: Code(s): J96.01 - Acute respiratory failure with hypoxia Status: Acute Assessment and Plan: * [facility] * Placed on 5LNC per EMS, currently on RA, saturation are charted to be low * One dose of Lasix ordered at this time * Elevate head of bed * Supplemental O2, currently on room air * ABG is normal with hypoxia, PaO2 68.8, but saturation on gas was 94.5 * Wean supplemental oxygen to maintain saturation above 92% (2) Aspiration pneumonia: Code(s): J69.0 - Pneumonitis due to inhalation of food and vomit Status: Acute Assessment and Plan: * CTA findings material in the bronchi in the lower lobes and lingula, which may be mucous plugging or aspiration * Speech has seen in the past, recommended non oral, but settled on mildly thicken liquids, pureed, and no cups or straws fluids per spoon only, up right sitting and multiple swallows * Family did not want feeding tube at that time * WBC is 13>12.1 ordered for tomorrow * Blood cultures obtained * Continue cefepime and vanco * Keep NPO for now, for mental status and aspiration * Reconsult Speech therapy, continue to NPO, no new notes * Consult tool inspector since patient could potentially need tube feedings * Trend labs * Continue TPN since she has a PICC line * Hospice consult placed (3) Pneumonia due to COVID-19 virus: Code(s): U07.1 - COVID-19; J12.82 - Pneumonia due to coronavirus disease 2019 Status: Acute Assessment and Plan: * Chest xray shows Airspace opacities in the mid and lower lung zones, consistent with pneumonia. * CTA shows Multifocal pneumonia involving all lobes predominantly in the mid and lower lung zones. * COVID positive as of 05/31/21 * Remdesivir and Decadron started in the ED 06/03/21, day 4. Remdesivir discontinue * Supplemental oxygen wean to maintain saturations greater than 92% * supportive care * Lovenox for DVT * cont zosyn and vanc * Blood cultures NGTD * Albuterol, Robitussin PRN * Hospice consult placed * (4) Hypernatremia: Code(s): E87.0 - Hyperosmolality and hypernatremia Status: Acute Assessment and Plan: * Sodium 128 * Continue D5w started * Trend sodium * Hospice consult placed (5) Dysphagia: Code(s): R13.10 - Dysphagia, unspecified Status: Acute Assessment and Plan: * Reconsult Speech * See aspiration PNA above * Hospice consult placed (6) Parkinsons disease: Code(s): G20 - Parkinson's disease Status: Acute Assessment and Plan: * Hold carbidopa/levodopa for now since there is speculation of aspiration * Continue when appropriate * Hospice consult placed (7) Hypothyroidism: Code(s): E03.9 - Hypothyroidism, unspecified Status: Acute Assessment and Plan: * Last TSH was normal * TSH 2.140 * Continue home Levothyroxine 25mcg PO daily when appropriate, consider IV (8) Dementia: Code(s): F03.90 - Unspecified dementia without behavioral disturbance Status: Acute Assessment and Plan: * Currently on donepezil, mirtazapine, quetiapine, and trazodone * Hold for now, NPO * Resume when appropriate * Hospice consult placed (9) Sepsis: Code(s): A41.9 - Sepsis, unspecified organism
--- NOTE | 2021-06-08 09:48 | WPDPN ---
Progress Note: A&P Assessment and Plan (1) Acute respiratory failure with hypoxia: Code(s): J96.01 - Acute respiratory failure with hypoxia Status: Acute Assessment and Plan: [facility] 5LNC per EMS, currently on RA, saturation are charted to be low One dose of Lasix ordered at this time Elevate head of bed Supplemental O2, currently on room air ABG is normal with hypoxia, PaO2 68.8, but saturation on gas was 94.5 Wean supplemental oxygen to maintain saturation above 92% (2) Aspiration pneumonia: Code(s): J69.0 - Pneumonitis due to inhalation of food and vomit Status: Acute Assessment and Plan: CTA findings material in the bronchi in the lower lobes and lingula, which may be mucous plugging or aspiration Speech has seen in the past, recommended non oral, but settled on mildly thicken liquids, pureed, and no cups or straws fluids per spoon only, up right sitting and multiple swallows Family did not want feeding tube at that time WBC is 13>12.1 ordered for tomorrow Blood cultures obtained Continue cefepime and vanco Keep NPO for now, for mental status and aspiration Reconsult Speech therapy, continue to NPO, no new notes Consult garage door technician since patient could potentially need tube feedings Trend labs Continue TPN since she has a PICC line Hospice consult placed (3) Pneumonia due to COVID-19 virus: Code(s): U07.1 - COVID-19; J12.82 - Pneumonia due to coronavirus disease 2018 Status: Acute Assessment and Plan: Chest xray shows Airspace opacities in the mid and lower lung zones, consistent with pneumonia. CTA shows Multifocal pneumonia involving all lobes predominantly in the mid and lower lung zones. COVID positive as of 05/31/21 Remdesivir and Decadron started in the ED 06/03/21, day 4. Remdesivir discontinue Supplemental oxygen wean to maintain saturations greater than 92% supportive care Lovenox for DVT cont zosyn and vanc Blood cultures NGTD Albuterol, Robitussin PRN Hospice consult placed (4) Hypernatremia: Code(s): E87.0 - Hyperosmolality and hypernatremia Status: Acute Assessment and Plan: Sodium 128 Continue D5w started Trend sodium Hospice consult placed (5) Dysphagia: Code(s): R13.10 - Dysphagia, unspecified Status: Acute Assessment and Plan: Reconsult Speech See aspiration PNA above Hospice consult placed (6) Parkinsons disease: Code(s): G20 - Parkinson's disease Status: Acute Assessment and Plan: Hold carbidopa/levodopa for now since there is speculation of aspiration Continue when appropriate Hospice consult placed (7) Hypothyroidism: Code(s): E03.9 - Hypothyroidism, unspecified Status: Acute Assessment and Plan: Last TSH was normal TSH 2.140 Continue home Levothyroxine 25mcg PO daily when appropriate, consider IV (8) Dementia: Code(s): F03.90 - Unspecified dementia without behavioral disturbance Status: Acute Assessment and Plan: Currently on donepezil, mirtazapine, quetiapine, and trazodone Hold for now, NPO Resume when appropriate Hospice consult placed (9) Sepsis: Code(s): A41.9 - Sepsis, unspecified organism Status: Acute Assessment and Plan: Meets Sirs with Heart rate >90, tachypnea, WBC 17.2, Lactic acid 5.5, possible renal failure with elevated BUN on admission Sofa score is 2 for AMS and tachypnea Source of infection aspiration CTA findings material in the bronchi in the lower lobes and lingula, which may be mucous plugging or aspiration 1L of NS in the ED Changed to D5w for sodium control Blood cultures NGTD Continue zosyn and vanco BP stable at this time Hospice consult placed (10) Leukocytosis: Code(s): D72.829 - Elevated white blo
[2021-06-08 10:53] LABS: Glucose Point of Care 167 mg/dl (65-105)
[2021-06-08 12:00] VITALS: PULSE 76
[2021-06-08 13:19] LABS: Glucose Point of Care 204 mg/dl (65-105)
[2021-06-08 16:00] VITALS: PULSE 79
[2021-06-08] MEDS: AMINO ACIDS 5%/D15W/E-LYTES/CA 2,000 ML with MULTIVITAMINS-12 INJ VIAL 1 2.5 ML, MULTIV... 40 ML IV CONT (16:14)
[2021-06-08 17:57] LABS: Glucose Point of Care 244 mg/dl (65-105)
--- NOTE | 2021-06-18 13:14 | P.DS_ITS ---
DS: Admitting Diagnosis Discharge Date 06/08/21 Admitting Diagnosis covid DS: Discharge Diagnosis Discharge Diagnosis (1) Acute respiratory failure with hypoxia: Code(s): J96.01 - Acute respiratory failure with hypoxia Status: Acute Assessment and Plan: * [facility]s [facility] * Placed on 5LNC per EMS, currently on RA, saturation are charted to be low * One dose of Lasix ordered at this time * Elevate head of bed * Supplemental O2, currently on room air * ABG is normal with hypoxia, PaO2 68.8, but saturation on gas was 94.5 * Wean supplemental oxygen to maintain saturation above 92% * Patient will transition to hospice (2) Aspiration pneumonia: Code(s): J69.0 - Pneumonitis due to inhalation of food and vomit Status: Acute Assessment and Plan: * CTA findings material in the bronchi in the lower lobes and lingula, which may be mucous plugging or aspiration * Speech has seen in the past, recommended non oral, but settled on mildly thicken liquids, pureed, and no cups or straws fluids per spoon only, up right sitting and multiple swallows * Family did not want feeding tube at that time * WBC is 13>12.1 ordered for tomorrow * Blood cultures obtained * Continue cefepime and vanco * Keep NPO for now, for mental status and aspiration * Reconsult Speech therapy, continue to NPO, no new notes * Consult cost estimator since patient could potentially need tube feedings * Trend labs * Continue TPN since she has a PICC line * Hospice consult placed * Patient will transition to hospice (3) Pneumonia due to COVID-19 virus: Code(s): U07.1 - COVID-19; J12.82 - Pneumonia due to coronavirus disease 2019 Status: Acute Assessment and Plan: * Chest xray shows Airspace opacities in the mid and lower lung zones, consistent with pneumonia. * CTA shows Multifocal pneumonia involving all lobes predominantly in the mid and lower lung zones. * COVID positive as of 05/31/21 * Remdesivir and Decadron started in the ED 06/03/21, day 4. Remdesivir discontinue * Supplemental oxygen wean to maintain saturations greater than 92% * supportive care * Lovenox for DVT * cont zosyn and vanc * Blood cultures NGTD * Albuterol, Robitussin PRN * Hospice consult placed * Patient will transition to hospice * (4) Hypernatremia: Code(s): E87.0 - Hyperosmolality and hypernatremia Status: Acute Assessment and Plan: * Sodium 128 * Continue D5w started * Trend sodium * Hospice consult placed * Patient will transition to hospice (5) Dysphagia: Code(s): R13.10 - Dysphagia, unspecified Status: Acute Assessment and Plan: * Reconsult Speech * See aspiration PNA above * Hospice consult placed (6) Parkinsons disease: Code(s): G20 - Parkinson's disease Status: Acute Assessment and Plan: * Hold carbidopa/levodopa for now since there is speculation of aspiration * Continue when appropriate * Hospice consult placed (7) Hypothyroidism: Code(s): E03.9 - Hypothyroidism, unspecified Status: Acute Assessment and Plan: * Last TSH was normal * TSH 2.140 * Continue home Levothyroxine 25mcg PO daily when appropriate, consider IV (8) Dementia: Code(s): F03.90 - Unspecified dementia without behavioral disturbance Status: Acute
--- NOTE | 2021-06-18 13:14 | PM.DS ---
DS: Admitting Diagnosis Discharge Date 06/08/21 Admitting Diagnosis covid DS: Discharge Diagnosis Discharge Diagnosis (1) Acute respiratory failure with hypoxia: Code(s): J96.01 - Acute respiratory failure with hypoxia Status: Acute Assessment and Plan: Saturation in the 80s at the shelter Placed on 5LNC per EMS, currently on RA, saturation are charted to be low One dose of Lasix ordered at this time Elevate head of bed Supplemental O2, currently on room air ABG is normal with hypoxia, PaO2 68.8, but saturation on gas was 94.5 Wean supplemental oxygen to maintain saturation above 92% Patient will transition to hospice (2) Aspiration pneumonia: Code(s): J69.0 - Pneumonitis due to inhalation of food and vomit Status: Acute Assessment and Plan: CTA findings material in the bronchi in the lower lobes and lingula, which may be mucous plugging or aspiration Speech has seen in the past, recommended non oral, but settled on mildly thicken liquids, pureed, and no cups or straws fluids per spoon only, up right sitting and multiple swallows Family did not want feeding tube at that time WBC is 13>12.1 ordered for tomorrow Blood cultures obtained Continue cefepime and vanco Keep NPO for now, for mental status and aspiration Reconsult Speech therapy, continue to NPO, no new notes Consult socket puller since patient could potentially need tube feedings Trend labs Continue TPN since she has a PICC line Hospice consult placed Patient will transition to hospice (3) Pneumonia due to COVID-19 virus: Code(s): U07.1 - COVID-19; J12.82 - Pneumonia due to coronavirus disease 2019 Status: Acute Assessment and Plan: Chest xray shows Airspace opacities in the mid and lower lung zones, consistent with pneumonia. CTA shows Multifocal pneumonia involving all lobes predominantly in the mid and lower lung zones. COVID positive as of 05/31/21 Remdesivir and Decadron started in the ED 06/03/21, day 4. Remdesivir discontinue Supplemental oxygen wean to maintain saturations greater than 92% supportive care Lovenox for DVT cont zosyn and vanc Blood cultures NGTD Albuterol, Robitussin PRN Hospice consult placed Patient will transition to hospice (4) Hypernatremia: Code(s): E87.0 - Hyperosmolality and hypernatremia Status: Acute Assessment and Plan: Sodium 128 Continue D5w started Trend sodium Hospice consult placed Patient will transition to hospice (5) Dysphagia: Code(s): R13.10 - Dysphagia, unspecified Status: Acute Assessment and Plan: Reconsult Speech See aspiration PNA above Hospice consult placed (6) Parkinsons disease: Code(s): G20 - Parkinson's disease Status: Acute Assessment and Plan: Hold carbidopa/levodopa for now since there is speculation of aspiration Continue when appropriate Hospice consult placed (7) Hypothyroidism: Code(s): E03.9 - Hypothyroidism, unspecified Status: Acute Assessment and Plan: Last TSH was normal TSH 2.140 Continue home Levothyroxine 25mcg PO daily when appropriate, consider IV (8) Dementia: Code(s): F03.90 - Unspecified dementia without behavioral disturbance Status: Acute Assessment and Plan: Currently on donepezil, mirtazapine, quetiapine, and trazodone Hold for now, NPO Resume when appropriate Hospice consult placed (9) Sepsis: Code(s): A41.9 - Sepsis, unspecified organism Status: Acute Assessment and Plan: Meets Sirs with Heart rate >90, tachypnea, WBC 17.2, Lactic acid 5.5, possible renal failure with elevated BUN on admission Sofa score is 2 for AMS and tachypnea Source of infection aspiration CTA findings material in the bronchi in the lower lobes and lingula, which may be mucous plugging or aspirat
== END 2021-06-08 22:07 | disposition hospice, inpatient (51) | DRG 871 ==
LOC: ANHED 05:31 → ANH3MEDSUR 11:35
PROVIDERS: Admitting Provider Internal Medicine; Emergency Provider Emergency Medicine; PCP Nurse Practitioner Adult Health; Visit Provider Nurse Practitioner
DX: A41.89 Other specified sepsis (principal); U07.1 COVID-19; J12.82 Pneumonia due to coronavirus disease 2019; J69.0 Pneumonitis due to inhalation of food and vomit; J96.01 Acute respiratory failure with hypoxia; D69.3 Immune thrombocytopenic purpura; E46 Unspecified protein-calorie malnutrition; Z68.1 Body mass index [BMI] 19.9 or less, adult; R64 Cachexia; N17.9 Acute kidney failure, unspecified; E87.0 Hyperosmolality and hypernatremia; T17.890A Other foreign object in other parts of respiratory tract causing asphyxiation, initial encounter; D64.9 Anemia, unspecified; F03.90 Unspecified dementia, unspecified severity, without behavioral disturbance, psychotic disturbance, mood disturbance, and anxiety; E03.9 Hypothyroidism, unspecified; G20 Parkinson's disease; R13.10 Dysphagia, unspecified; E11.9 Type 2 diabetes mellitus without complications; E86.0 Dehydration; Z87.891 Personal history of nicotine dependence; D72.829 Elevated white blood cell count, unspecified
CPT/HCPCS: 36415; 36569; 36600; 71045; 71275; 80048; 80053; 80076; 80202; 82375; 82565; 82728; 82805; 82948; 83050; 83605; 83615; 83735; 83880; 84100; 84443; 84460; 84466; 84478; 84484; 85025; 85380; 85610; 85730; 86140; 87040; 87804; 92610; 93005; 94640; 96365; 96367; 96375; 99291; C1751; J0131; J0456; J0696; J1100; J1650; J1815; J1940; J2060; J2543; J3370; J3480; J7030; J7040; J7070; J7120; Q9967

== ENCOUNTER 2021-06-08 20:30 | HOS | payer OTHER, MEDICARE, MEDICAID, SELFPAY ==
[2021-06-09] MEDS: MORPHINE SULFATE INJ (*CRX) 50 MG in SODIUM CHLORIDE 0.9% IV 95 ML IV CONT (02:04)
[2021-06-09 02:24] VITALS: BMI 16.2
[2021-06-09 08:00] VITALS: O2SAT 92
[2021-06-09] MEDS: ARTIFICIAL TEARS OPHTH SOLN 15 ML BOTTLE 1 DROP EACH EYE ×3 (08:35→18:10)
--- NOTE | 2021-06-09 13:45 | PCDIET ---
RDN consulted for pressure ulcer. Pt has been d/c to hospice. No further nutritional interventions at this time.
[2021-06-09 14:03] VITALS: PULSE 80; RESP 20; O2SAT 74
[2021-06-09 14:04] VITALS: BP 98/58; PULSE 80; RESP 20; TEMP 36.9; O2SAT 74; O2SAT 94
--- NOTE | 2021-06-09 16:39 | PM.IMHP ---
H&P: HPI History of Present Illness Date/Time: 06/09/21 16:39 Chief Complaint: Uncontrolled dyspnea Narrative: 80-year-old shelter resident was admitted to [facility] June 03 with bilateral pneumonia and COVID positive. She had respiratory failure. Currently requiring 2 L of oxygen. However mental status was poor on admission and did not improve with remdesivir and dexamethasone. Family did not wish to pursue artificial feedings or other means of from morning life given her poor baseline functional status. Therefore she was admitted to hospice service 06/08/2021 in the p.m.. She was very dyspneic at admission. However since initiating continuous IV morphine her respirations are unlabored. Review of Systems Review of Systems: ROS unobtainable: Yes unobtainable due to medical condition PMFSH Past Medical History Medical History Altered mental state Anemia Chronic idiopathic thrombocytopenia Closed right hip fracture (07/2018) Treated nonsurgically. Confusion Dementia Diabetes mellitus Diet-controlled diabetes mellitus Dysphagia Elevated blood pressure reading Hypothyroidism Parkinsons disease Tobacco use Surgical History Surgical History Surgical history unknown Family History Family History Sibling Cancer Social History Social History (Updated 06/09/21 @ 16:49 by Prem Kenyon MD) Social History: Patient is a resident of [facility]. Baseline unknown. Surrogate decision maker: Angelito Graham, or Doris [place], niece. 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 Gender identity (if verbalized by the patient): Female Sexual Orientation (if Verbalized by the Patient): Straight or Heterosexual Spiritual care concerns: No Agree to blood products: Yes Meds Home Medications and Allergies Home Medications Medication Instructions Recorded Confirmed Type No Home Medications 06/09/21 06/09/21 History Allergies Allergy/AdvReac Type Severity Reaction Status Date / Time No Known Allergies Allergy Mild Verified 06/03/21 01:22 Vital Signs Vital Signs - 24 hr 06/09/21 08:00 06/09/21 14:03 06/09/21 14:04 Temperature 98.5 F Pulse Rate 80 80 Respiratory Rate 20 20 Blood Pressure 98/58 L Pulse Oximetry 92 74 L 94 Exam Narrative: Frail elderly individual who is mildly tachypneic and unresponsive to verbal or tactile stimuli Mucous membranes dry Neck no JVD Chest diminished breath sounds Heart regular rate Abdomen soft no palpable masses hypoactive bowel sounds Extremities no edema cyanosis or clubbing Cranial nerves symmetric to inspection Assessment and Plan Assessment and plan (1) Palliative care by specialist: Code(s): Z51.5 - Encounter for palliative care Status: Acute Assessment and Plan: Meet inpatient hospice criteria due to uncontrolled dyspnea requiring continuous IV morphine for control Remainder of palliative regimen as ordered (2) Pneumonia due to COVID-19 virus: Code(s): U07.1 - COVID-19; J12.82 - Pneumonia due to coronavirus disease 2019 Status: Acute (3) Acute respiratory failure with hypoxia: Code(s): J96.01 - Acute respiratory failure with hypoxia Status: Acute Quality VTE Prophylaxis VTE prophylaxis: mechanical ordered If No VTE Prophylaxis Answer both mechanical and pharmacologic: Reason no mechanical VTE proph: low risk/not indicated and medical contraindication (Palliative care only)
[2021-06-09 18:10] VITALS: RESP 14
[2021-06-09 20:00] VITALS: O2SAT 94
[2021-06-09 21:39] VITALS: BP 90/43; PULSE 82; RESP 16; TEMP 37.2; O2SAT 99
[2021-06-10 08:00] VITALS: BP 112/46; PULSE 70; RESP 14; TEMP 36.6; O2SAT 96
[2021-06-10] MEDS: ARTIFICIAL TEARS OPHTH SOLN 15 ML BOTTLE 1 DROP EACH EYE ×3 (08:21→17:31)
[2021-06-10 08:29] VITALS: O2SAT 96
[2021-06-10] MEDS: MORPHINE SULFATE INJ (*CRX) 50 MG in SODIUM CHLORIDE 0.9% IV 95 ML IV CONT (08:29)
--- NOTE | 2021-06-10 17:19 | PM.IMPN ---
Progress Note: A&P Assessment and Plan (1) Palliative care by specialist: Code(s): Z51.5 - Encounter for palliative care Status: Acute Assessment and Plan: Meet inpatient hospice criteria due to uncontrolled dyspnea requiring continuous IV morphine for control Remainder of palliative regimen as ordered (2) Pneumonia due to COVID-19 virus: Code(s): U07.1 - COVID-19; J12.82 - Pneumonia due to coronavirus disease 2019 Status: Acute (3) Acute respiratory failure with hypoxia: Code(s): J96.01 - Acute respiratory failure with hypoxia Status: Acute Subjective Date/time seen: 06/10/21 17:19 Interval history: 06/10 visit: No issues today. No po intake. Review of Systems Review of Systems: ROS unobtainable: Yes unobtainable due to medical condition Exam Narrative: Frail elderly individual who is mildly tachypneic and unresponsive to verbal or tactile stimuli Mucous membranes dry Neck no JVD Chest diminished breath sounds Heart regular rate Abdomen soft no palpable masses hypoactive bowel sounds Extremities no edema cyanosis or clubbing Cranial nerves symmetric to inspection Objective Data Vital Signs Vital Signs: Vital Signs - 24 hr 06/09/21 18:10 06/09/21 20:00 06/09/21 21:39 Temperature 98.9 F Pulse Rate 82 Respiratory Rate 14 16 Blood Pressure 90/43 L Pulse Oximetry 94 99 06/10/21 08:00 06/10/21 08:29 Temperature 97.8 F Pulse Rate 70 Respiratory Rate 14 Blood Pressure 112/46 L Pulse Oximetry 96 96 Intake/Output Intake/Output: Intake & Output 06/07/21 06/08/21 06/09/21 06/10/21 23:59 23:59 23:59 23:59 Intake Total 100 Output Total 1450 300 Balance -1450 -200 Meds/Results Medications: Active Medications Generic Name Dose Route Start Last Admin Trade Name Freq PRN Reason Stop Dose Admin Acetaminophen 650 mg 06/09/21 00:58 Acetaminophen 650 Mg Suppository RECTAL Q4H PRN Fever Artificial Tears 1 drop 06/09/21 09:00 06/10/21 13:18 Artificial Tears Ophth Soln 15 Ml Bottle EACH EYE 1 drop TID CARLOS Administration Artificial Tears 1 drop 06/09/21 00:59 Artificial Tears Ophth Soln 15 Ml Bottle EACH EYE QID PRN Dry Eye(s) Bisacodyl 10 mg 06/09/21 00:58 Bisacodyl 10 Mg Suppository RECTAL QAM PRN Constipation Glycopyrrolate 0.1 mg 06/09/21 01:00 Glycopyrrolate Inj (*Sp) 0.2 Mg/Ml Vial IV PUSH Q4H PRN INCREASED SECRETIONS Morphine Sulfate 50 mg/ Sodium 100 mls @ 2 mls/hr 06/09/21 00:55 06/10/21 08:29 Chloride IV CONT 1 mg/hr .Q24H CARLOS 2 mls/hr Administration 1 MG/HR Lorazepam 1 mg 06/09/21 00:57 Lorazepam Inj (*Crx) 2 Mg/Ml Vial IV PUSH Q4H PRN Anxiety Morphine Sulfate 2 mg 06/09/21 00:56 Morphine Sulfate (*Crx) 2 Mg/Ml Inj IV PUSH Q2H PRN Pain or SOB Prochlorperazine Edisylate 10 mg 06/09/21 01:00 Prochlorperazine Edisylate 10 Mg/2 Ml Vial IV PUSH Q4H PRN Nausea And Vomiting Quality VTE Prophylaxis VTE prophylaxis: mechanical ordered
[2021-06-10 19:52] VITALS: PULSE 70; RESP 14; O2SAT 96
[2021-06-10 22:00] VITALS: BP 102/62; PULSE 76; RESP 18; TEMP 36.6; O2SAT 94
[2021-06-11] MEDS: LORazepam INJ (*CRX) 2 MG/ML VIAL 1 MG IV PUSH (06:01)
[2021-06-11] MEDS: ARTIFICIAL TEARS OPHTH SOLN 15 ML BOTTLE 1 DROP EACH EYE (11:05)
[2021-06-11] MEDS: MORPHINE SULFATE INJ (*CRX) 50 MG in SODIUM CHLORIDE 0.9% IV 95 ML IV CONT (11:43)
[2021-06-11 12:45] VITALS: BP 124/64; PULSE 81; RESP 16; TEMP 36.7; O2SAT 91
--- NOTE | 2021-06-11 16:31 | P.PNIM_ITS ---
Progress Note: A&P Assessment and Plan (1) Palliative care by specialist: Code(s): Z51.5 - Encounter for palliative care Status: Acute Assessment and Plan: * Meet inpatient hospice criteria due to uncontrolled dyspnea requiring continuous IV morphine for control * Remainder of palliative regimen as ordered (2) Pneumonia due to COVID-19 virus: Code(s): U07.1 - COVID-19; J12.82 - Pneumonia due to coronavirus disease 2019 Status: Acute (3) Acute respiratory failure with hypoxia: Code(s): J96.01 - Acute respiratory failure with hypoxia Status: Acute Subjective Date/time seen: 06/11/21 16:31 Interval history: 06/11 visit: No issues today. No po intake. Review of Systems Review of Systems: ROS unobtainable: Yes unobtainable due to medical condition Exam Narrative: Frail elderly individual who is mildly tachypneic and unresponsive to verbal or tactile stimuli Mucous membranes dry Neck no JVD Chest diminished breath sounds Heart regular rate Abdomen soft no palpable masses hypoactive bowel sounds Extremities no edema cyanosis or clubbing Cranial nerves symmetric to inspection Objective Data Vital Signs Vital Signs: Vital Signs - 24 hr 06/10/21 19:52 06/10/21 22:00 Temperature 97.9 F Pulse Rate 70 76 Respiratory Rate 14 18 Blood Pressure 102/62 Pulse Oximetry 96 94 Intake/Output Intake/Output: Intake & Output 06/08/21 06/09/21 06/10/21 06/11/21 23:59 23:59 23:59 23:59 Intake Total 100 100 Output Total 1450 350 Balance -1450 -250 100 Meds/Results Medications: Active Medications Generic Name Dose Route Start Last Admin Trade Name Freq PRN Reason Stop Dose Admin Acetaminophen 650 mg 06/09/21 00:58 Acetaminophen 650 Mg Suppository RECTAL Q4H PRN Fever Artificial Tears 1 drop 06/09/21 09:00 06/11/21 15:35 Artificial Tears Ophth Soln 15 Ml Bottle EACH EYE Not Given TID CARLOS Artificial Tears 1 drop 06/09/21 00:59 Artificial Tears Ophth Soln 15 Ml Bottle EACH EYE QID PRN Dry Eye(s) Bisacodyl 10 mg 06/09/21 00:58 Bisacodyl 10 Mg Suppository RECTAL QAM PRN Constipation Glycopyrrolate 0.1 mg 06/09/21 01:00 Glycopyrrolate Inj (*Sp) 0.2 Mg/Ml Vial IV PUSH Q4H PRN INCREASED SECRETIONS Morphine Sulfate 50 mg/ Sodium 100 mls @ 2 mls/hr 06/09/21 00:55 06/11/21 11:43 Chloride IV CONT 1 mg/hr .Q24H CARLOS 2 mls/hr Administration 1 MG/HR Lorazepam 1 mg 06/09/21 00:57 06/11/21 06:01 Lorazepam Inj (*Crx) 2 Mg/Ml Vial IV PUSH 1 mg Q4H PRN Administration Anxiety Morphine Sulfate 2 mg 06/09/21 00:56 Morphine Sulfate (*Crx) 2 Mg/Ml Inj IV PUSH Q2H PRN Pain or SOB Prochlorperazine Edisylate 10 mg 06/09/21 01:00 Prochlorperazine Edisylate 10 Mg/2 Ml Vial IV PUSH Q4H PRN Nausea And Vomiting Quality VTE Prophylaxis VTE prophylaxis: mechanical ordered
[2021-06-11 20:00] VITALS: BP 134/66; PULSE 73; RESP 10; TEMP 36.6; O2SAT 95
[2021-06-11 20:30] VITALS: PULSE 73; RESP 10; O2SAT 95
[2021-06-12 08:00] VITALS: O2SAT 93
[2021-06-12] MEDS: ARTIFICIAL TEARS OPHTH SOLN 15 ML BOTTLE 1 DROP EACH EYE ×3 (09:14→17:53)
--- NOTE | 2021-06-12 16:30 | P.PNIM_ITS ---
Progress Note: A&P Assessment and Plan (1) Palliative care by specialist: Code(s): Z51.5 - Encounter for palliative care Status: Acute Assessment and Plan: * Meet inpatient hospice criteria due to uncontrolled dyspnea requiring continuous IV morphine for control * Remainder of palliative regimen as ordered (2) Pneumonia due to COVID-19 virus: Code(s): U07.1 - COVID-19; J12.82 - Pneumonia due to coronavirus disease 2019 Status: Acute (3) Acute respiratory failure with hypoxia: Code(s): J96.01 - Acute respiratory failure with hypoxia Status: Acute Subjective Date/time seen: 06/12/21 16:30 Interval history: 06/12 visit: No issues today. No po intake. Review of Systems Review of Systems: ROS unobtainable: Yes unobtainable due to medical condition Exam Narrative: Frail elderly individual who is mildly tachypneic and unresponsive to verbal or tactile stimuli Mucous membranes dry Neck no JVD Chest diminished breath sounds Heart regular rate Abdomen soft no palpable masses hypoactive bowel sounds Extremities no edema cyanosis or clubbing Cranial nerves symmetric to inspection Objective Data Vital Signs Vital Signs: Vital Signs - 24 hr 06/11/21 20:00 06/11/21 20:30 06/12/21 08:00 Temperature 97.8 F Pulse Rate 73 73 Respiratory Rate 10 L 10 L Blood Pressure 134/66 Pulse Oximetry 95 95 93 Intake/Output Intake/Output: Intake & Output 06/09/21 06/10/21 06/11/21 06/12/21 23:59 23:59 23:59 23:59 Intake Total 100 100 Output Total 1450 350 250 Balance -1450 -250 100 -250 Meds/Results Medications: Active Medications Generic Name Dose Route Start Last Admin Trade Name Freq PRN Reason Stop Dose Admin Acetaminophen 650 mg 06/09/21 00:58 Acetaminophen 650 Mg Suppository RECTAL Q4H PRN Fever Artificial Tears 1 drop 06/09/21 09:00 06/12/21 13:17 Artificial Tears Ophth Soln 15 Ml Bottle EACH EYE 1 drop TID CARLOS Administration Artificial Tears 1 drop 06/09/21 00:59 Artificial Tears Ophth Soln 15 Ml Bottle EACH EYE QID PRN Dry Eye(s) Bisacodyl 10 mg 06/09/21 00:58 Bisacodyl 10 Mg Suppository RECTAL QAM PRN Constipation Glycopyrrolate 0.1 mg 06/09/21 01:00 Glycopyrrolate Inj (*Sp) 0.2 Mg/Ml Vial IV PUSH Q4H PRN INCREASED SECRETIONS Morphine Sulfate 50 mg/ Sodium 100 mls @ 2 mls/hr 06/09/21 00:55 06/11/21 11:43 Chloride IV CONT 1 mg/hr .Q24H CARLOS 2 mls/hr Administration 1 MG/HR Lorazepam 1 mg 06/09/21 00:57 06/11/21 06:01 Lorazepam Inj (*Crx) 2 Mg/Ml Vial IV PUSH 1 mg Q4H PRN Administration Anxiety Morphine Sulfate 2 mg 06/09/21 00:56 Morphine Sulfate (*Crx) 2 Mg/Ml Inj IV PUSH Q2H PRN Pain or SOB Prochlorperazine Edisylate 10 mg 06/09/21 01:00 Prochlorperazine Edisylate 10 Mg/2 Ml Vial IV PUSH Q4H PRN Nausea And Vomiting Quality VTE Prophylaxis VTE prophylaxis: mechanical ordered
[2021-06-12 19:52] VITALS: BP 121/57; PULSE 77; RESP 8; TEMP 36.6; O2SAT 94
[2021-06-12 20:00] VITALS: RESP 8; O2SAT 92
[2021-06-13 08:00] VITALS: BP 118/16; PULSE 79; RESP 10; TEMP 36.7; O2SAT 91
[2021-06-13 10:55] VITALS: O2SAT 92
[2021-06-13] MEDS: ARTIFICIAL TEARS OPHTH SOLN 15 ML BOTTLE 1 DROP EACH EYE (10:59)
[2021-06-13] MEDS: MORPHINE SULFATE INJ (*CRX) 50 MG in SODIUM CHLORIDE 0.9% IV 95 ML IV CONT (10:59)
--- NOTE | 2021-06-13 16:32 | P.PNIM_ITS ---
Progress Note: A&P Assessment and Plan (1) Palliative care by specialist: Code(s): Z51.5 - Encounter for palliative care Status: Acute Assessment and Plan: * Meet inpatient hospice criteria due to uncontrolled dyspnea requiring continuous IV morphine for control * Remainder of palliative regimen as ordered (2) Pneumonia due to COVID-19 virus: Code(s): U07.1 - COVID-19; J12.82 - Pneumonia due to coronavirus disease 2019 Status: Acute (3) Acute respiratory failure with hypoxia: Code(s): J96.01 - Acute respiratory failure with hypoxia Status: Acute Subjective Date/time seen: 06/13/21 16:32 Interval history: 06/13: Quiet day. Remains comfortable. Review of Systems Review of Systems: ROS unobtainable: Yes unobtainable due to medical condition Exam Narrative: Frail elderly individual who is mildly tachypneic and unresponsive to verbal or tactile stimuli Mucous membranes dry Neck no JVD Chest coarse breath sounds Heart regular rate Abdomen soft no palpable masses hypoactive bowel sounds Extremities no edema cyanosis or clubbing Cranial nerves symmetric to inspection Objective Data Vital Signs Vital Signs: Vital Signs - 24 hr 06/12/21 19:52 06/12/21 20:00 06/13/21 10:55 Temperature 97.9 F Pulse Rate 77 Respiratory Rate 8 L 8 L Blood Pressure 121/57 L Pulse Oximetry 94 92 92 Intake/Output Intake/Output: Intake & Output 06/10/21 06/11/21 06/12/21 06/13/21 23:59 23:59 23:59 23:59 Intake Total 100 100 100 Output Total 350 550 200 Balance -250 100 -550 -100 Meds/Results Medications: Active Medications Generic Name Dose Route Start Last Admin Trade Name Freq PRN Reason Stop Dose Admin Acetaminophen 650 mg 06/09/21 00:58 Acetaminophen 650 Mg Suppository RECTAL Q4H PRN Fever Artificial Tears 1 drop 06/09/21 00:59 Artificial Tears Ophth Soln 15 Ml Bottle EACH EYE QID PRN Dry Eye(s) Bisacodyl 10 mg 06/09/21 00:58 Bisacodyl 10 Mg Suppository RECTAL QAM PRN Constipation Glycopyrrolate 0.1 mg 06/09/21 01:00 Glycopyrrolate Inj (*Sp) 0.2 Mg/Ml Vial IV PUSH Q4H PRN INCREASED SECRETIONS Morphine Sulfate 50 mg/ Sodium 100 mls @ 2 mls/hr 06/09/21 00:55 06/13/21 10:59 Chloride IV CONT 1 mg/hr .Q24H CARLOS 2 mls/hr Administration 1 MG/HR Lorazepam 1 mg 06/09/21 00:57 06/11/21 06:01 Lorazepam Inj (*Crx) 2 Mg/Ml Vial IV PUSH 1 mg Q4H PRN Administration Anxiety Morphine Sulfate 2 mg 06/09/21 00:56 Morphine Sulfate (*Crx) 2 Mg/Ml Inj IV PUSH Q2H PRN Pain or SOB Prochlorperazine Edisylate 10 mg 06/09/21 01:00 Prochlorperazine Edisylate 10 Mg/2 Ml Vial IV PUSH Q4H PRN Nausea And Vomiting Quality VTE Prophylaxis VTE prophylaxis: mechanical ordered
[2021-06-13 21:45] VITALS: BP 108/58; PULSE 73; RESP 16; TEMP 36.4; O2SAT 95
[2021-06-14 08:00] VITALS: BP 120/63; PULSE 82; RESP 12; TEMP 36.4; O2SAT 93
--- NOTE | 2021-06-14 11:02 | P.PNIM_ITS ---
Progress Note: A&P Assessment and Plan (1) Palliative care by specialist: Code(s): Z51.5 - Encounter for palliative care Status: Acute Assessment and Plan: * Meet inpatient hospice criteria due to uncontrolled dyspnea requiring continuous IV morphine for control * Remainder of palliative regimen as ordered (2) Pneumonia due to COVID-19 virus: Code(s): U07.1 - COVID-19; J12.82 - Pneumonia due to coronavirus disease 2019 Status: Acute (3) Acute respiratory failure with hypoxia: Code(s): J96.01 - Acute respiratory failure with hypoxia Status: Acute Subjective Date/time seen: 06/14/21 11:02 Interval history: 06/14: Quiet day. Remains comfortable. Review of Systems Review of Systems: ROS unobtainable: Yes unobtainable due to medical condition Exam Narrative: Frail elderly individual who is mildly tachypneic and unresponsive to verbal or tactile stimuli Mucous membranes dry Neck no JVD Chest coarse breath sounds Heart regular rate Abdomen soft no palpable masses hypoactive bowel sounds Extremities no edema cyanosis or clubbing Cranial nerves symmetric to inspection Objective Data Vital Signs Vital Signs: Vital Signs - 24 hr 06/13/21 21:45 06/14/21 08:00 Temperature 97.5 F L 97.6 F Pulse Rate 73 82 Respiratory Rate 16 12 Blood Pressure 108/58 L 120/63 Pulse Oximetry 95 93 Intake/Output Intake/Output: Intake & Output 06/11/21 06/12/21 06/13/21 06/14/21 23:59 23:59 23:59 23:59 Intake Total 100 100 0 Output Total 550 200 400 Balance 100 -550 -100 -400 Meds/Results Medications: Active Medications Generic Name Dose Route Start Last Admin Trade Name Freq PRN Reason Stop Dose Admin Acetaminophen 650 mg 06/09/21 00:58 Acetaminophen 650 Mg Suppository RECTAL Q4H PRN Fever Artificial Tears 1 drop 06/09/21 00:59 Artificial Tears Ophth Soln 15 Ml Bottle EACH EYE QID PRN Dry Eye(s) Bisacodyl 10 mg 06/09/21 00:58 Bisacodyl 10 Mg Suppository RECTAL QAM PRN Constipation Glycopyrrolate 0.1 mg 06/09/21 01:00 Glycopyrrolate Inj (*Sp) 0.2 Mg/Ml Vial IV PUSH Q4H PRN INCREASED SECRETIONS Morphine Sulfate 50 mg/ Sodium 100 mls @ 2 mls/hr 06/09/21 00:55 06/13/21 10:59 Chloride IV CONT 1 mg/hr .Q24H CARLOS 2 mls/hr Administration 1 MG/HR Lorazepam 1 mg 06/09/21 00:57 06/11/21 06:01 Lorazepam Inj (*Crx) 2 Mg/Ml Vial IV PUSH 1 mg Q4H PRN Administration Anxiety Morphine Sulfate 2 mg 06/09/21 00:56 Morphine Sulfate (*Crx) 2 Mg/Ml Inj IV PUSH Q2H PRN Pain or SOB Prochlorperazine Edisylate 10 mg 06/09/21 01:00 Prochlorperazine Edisylate 10 Mg/2 Ml Vial IV PUSH Q4H PRN Nausea And Vomiting Quality VTE Prophylaxis VTE prophylaxis: mechanical ordered
[2021-06-14] MEDS: MORPHINE SULFATE INJ (*CRX) 50 MG in SODIUM CHLORIDE 0.9% IV 95 ML IV CONT (12:47)
[2021-06-14] MEDS: GLYCOPYRROLATE INJ (*SP) 0.2 MG/ML VIAL 0.1 MG IV PUSH (14:53)
[2021-06-14] MEDS: LORazepam INJ (*CRX) 2 MG/ML VIAL 1 MG IV PUSH (14:55)
[2021-06-15] VITALS: BP 90/42; PULSE 101; RESP 20; TEMP 37.7; O2SAT 85
[2021-06-15 10:35] VITALS: O2SAT 82
--- NOTE | 2021-06-15 10:38 | P.PNIM_ITS ---
Progress Note: A&P Assessment and Plan (1) Palliative care by specialist: Code(s): Z51.5 - Encounter for palliative care Status: Acute Assessment and Plan: * Meet inpatient hospice criteria due to uncontrolled dyspnea requiring continuous IV morphine for control * Remainder of palliative regimen as ordered (2) Pneumonia due to COVID-19 virus: Code(s): U07.1 - COVID-19; J12.82 - Pneumonia due to coronavirus disease 2019 Status: Acute (3) Acute respiratory failure with hypoxia: Code(s): J96.01 - Acute respiratory failure with hypoxia Status: Acute Subjective Date/time seen: 06/15/21 10:38 Interval history: 06/15: Quiet day. Remains comfortable. Review of Systems Review of Systems: ROS unobtainable: Yes unobtainable due to medical condition Exam Narrative: Frail elderly individual who is mildly tachypneic and unresponsive to verbal or tactile stimuli Mucous membranes dry Neck no JVD Chest coarse breath sounds Heart regular rate Abdomen soft no palpable masses hypoactive bowel sounds Extremities no edema cyanosis or clubbing Cranial nerves symmetric to inspection Objective Data Vital Signs Vital Signs: Vital Signs - 24 hr 06/15/21 00:00 06/15/21 10:35 Temperature 100 F H Pulse Rate 101 H Respiratory Rate 20 Blood Pressure 90/42 L Pulse Oximetry 85 L 82 L Intake/Output Intake/Output: Intake & Output 06/12/21 06/13/21 06/14/21 06/15/21 23:59 23:59 23:59 23:59 Intake Total 100 0 Output Total 550 200 400 Balance -550 -100 -400 Meds/Results Medications: Active Medications Generic Name Dose Route Start Last Admin Trade Name Freq PRN Reason Stop Dose Admin Acetaminophen 650 mg 06/09/21 00:58 Acetaminophen 650 Mg Suppository RECTAL Q4H PRN Fever Artificial Tears 1 drop 06/09/21 00:59 Artificial Tears Ophth Soln 15 Ml Bottle EACH EYE QID PRN Dry Eye(s) Bisacodyl 10 mg 06/09/21 00:58 Bisacodyl 10 Mg Suppository RECTAL QAM PRN Constipation Glycopyrrolate 0.1 mg 06/09/21 01:00 06/14/21 14:53 Glycopyrrolate Inj (*Sp) 0.2 Mg/Ml Vial IV PUSH 0.1 mg Q4H PRN Administration INCREASED SECRETIONS Morphine Sulfate 50 mg/ Sodium 100 mls @ 2 mls/hr 06/14/21 12:00 06/14/21 12:47 Chloride IV CONT 1 mg/hr .Q24H CARLOS 2 mls/hr Administration 1 MG/HR Lorazepam 1 mg 06/09/21 00:57 06/14/21 14:55 Lorazepam Inj (*Crx) 2 Mg/Ml Vial IV PUSH 1 mg Q4H PRN Administration Anxiety Morphine Sulfate 2 mg 06/09/21 00:56 Morphine Sulfate (*Crx) 2 Mg/Ml Inj IV PUSH Q2H PRN Pain or SOB Prochlorperazine Edisylate 10 mg 06/09/21 01:00 Prochlorperazine Edisylate 10 Mg/2 Ml Vial IV PUSH Q4H PRN Nausea And Vomiting Quality VTE Prophylaxis VTE prophylaxis: mechanical ordered
[2021-06-15 18:30] VITALS: BP 82/38; PULSE 93; RESP 13; TEMP 37; O2SAT 83
[2021-06-16 08:00] VITALS: O2SAT 83
[2021-06-16 10:12] LABS: Lactic Acid Reflex 1.1 mmol/L (0.7-2.1)
[2021-06-16] MEDS: MORPHINE SULFATE INJ (*CRX) 50 MG in SODIUM CHLORIDE 0.9% IV 95 ML IV CONT (15:03)
[2021-06-16 20:00] VITALS: PULSE 86; RESP 8; O2SAT 95
[2021-06-16 21:18] VITALS: BP 89/46; PULSE 86; RESP 8; TEMP 36.1; O2SAT 95
--- NOTE | 2021-06-16 21:29 | P.PNIM_ITS ---
Progress Note: A&P Assessment and Plan (1) Palliative care by specialist: Code(s): Z51.5 - Encounter for palliative care Status: Acute Assessment and Plan: * Meet inpatient hospice criteria due to uncontrolled dyspnea requiring continuous IV morphine for control * Remainder of palliative regimen as ordered (2) Pneumonia due to COVID-19 virus: Code(s): U07.1 - COVID-19; J12.82 - Pneumonia due to coronavirus disease 2019 Status: Acute (3) Acute respiratory failure with hypoxia: Code(s): J96.01 - Acute respiratory failure with hypoxia Status: Acute Subjective Date/time seen: 06/16/21 21:29 Interval history: 06/16: TeleHealth visit with KAROL Gresham at bedside. Quiet day. Remains comfortable. Review of Systems Review of Systems: ROS unobtainable: Yes unobtainable due to medical condition Exam Narrative: Frail elderly individual who is mildly tachypneic and unresponsive to verbal or tactile stimuli Mucous membranes dry Neck no JVD Chest coarse breath sounds Heart regular rate Abdomen soft no palpable masses hypoactive bowel sounds Extremities no edema cyanosis or clubbing Cranial nerves symmetric to inspection Objective Data Vital Signs Vital Signs: Vital Signs - 24 hr 06/16/21 08:00 06/16/21 21:18 Temperature 97.0 F L Pulse Rate 86 Respiratory Rate 8 L Blood Pressure 89/46 L Pulse Oximetry 83 L 95 Intake/Output Intake/Output: Intake & Output 06/13/21 06/14/21 06/15/21 06/16/21 23:59 23:59 23:59 23:59 Intake Total 100 0 100 Output Total 200 400 Balance -100 -400 100 Meds/Results Medications: Active Medications Generic Name Dose Route Start Last Admin Trade Name Freq PRN Reason Stop Dose Admin Acetaminophen 650 mg 06/09/21 00:58 Acetaminophen 650 Mg Suppository RECTAL Q4H PRN Fever Artificial Tears 1 drop 06/09/21 00:59 Artificial Tears Ophth Soln 15 Ml Bottle EACH EYE QID PRN Dry Eye(s) Bisacodyl 10 mg 06/09/21 00:58 Bisacodyl 10 Mg Suppository RECTAL QAM PRN Constipation Glycopyrrolate 0.1 mg 06/09/21 01:00 06/14/21 14:53 Glycopyrrolate Inj (*Sp) 0.2 Mg/Ml Vial IV PUSH 0.1 mg Q4H PRN Administration INCREASED SECRETIONS Morphine Sulfate 50 mg/ Sodium 100 mls @ 2 mls/hr 06/14/21 12:00 06/16/21 15:03 Chloride IV CONT 1 mg/hr .Q24H CARLOS 2 mls/hr Administration 1 MG/HR Lorazepam 1 mg 06/09/21 00:57 06/14/21 14:55 Lorazepam Inj (*Crx) 2 Mg/Ml Vial IV PUSH 1 mg Q4H PRN Administration Anxiety Morphine Sulfate 2 mg 06/09/21 00:56 Morphine Sulfate (*Crx) 2 Mg/Ml Inj IV PUSH Q2H PRN Pain or SOB Prochlorperazine Edisylate 10 mg 06/09/21 01:00 Prochlorperazine Edisylate 10 Mg/2 Ml Vial IV PUSH Q4H PRN Nausea And Vomiting Labs Labs: Laboratory Results - last 24 hr 06/16/21 09:48 Lactic Acid 1.1 Quality VTE Prophylaxis VTE prophylaxis: mechanical ordered
[2021-06-17 08:00] VITALS: O2SAT 95
--- NOTE | 2021-06-17 16:31 | P.PNIM_ITS ---
Progress Note: A&P Assessment and Plan (1) Palliative care by specialist: Code(s): Z51.5 - Encounter for palliative care Status: Acute Assessment and Plan: * Meet inpatient hospice criteria due to uncontrolled dyspnea requiring continuous IV morphine for control * Remainder of palliative regimen as ordered (2) Pneumonia due to COVID-19 virus: Code(s): U07.1 - COVID-19; J12.82 - Pneumonia due to coronavirus disease 2019 Status: Acute (3) Acute respiratory failure with hypoxia: Code(s): J96.01 - Acute respiratory failure with hypoxia Status: Acute Subjective Date/time seen: 06/17/21 16:31 Interval history: 06/17: Quiet day. Remains comfortable. Review of Systems Review of Systems: ROS unobtainable: Yes unobtainable due to medical condition Exam Narrative: Frail elderly individual who is mildly tachypneic and unresponsive to verbal or tactile stimuli Mucous membranes dry Neck no JVD Chest coarse breath sounds Heart regular rate Abdomen soft no palpable masses hypoactive bowel sounds Extremities no edema cyanosis or clubbing Cranial nerves symmetric to inspection Objective Data Vital Signs Vital Signs: Vital Signs - 24 hr 06/16/21 20:00 06/16/21 21:18 06/17/21 08:00 Temperature 97.0 F L Pulse Rate 86 86 Respiratory Rate 8 L 8 L Blood Pressure 89/46 L Pulse Oximetry 95 95 95 Intake/Output Intake/Output: Intake & Output 06/14/21 06/15/21 06/16/21 06/17/21 23:59 23:59 23:59 23:59 Intake Total 0 100 Output Total 400 Balance -400 100 Meds/Results Medications: Active Medications Generic Name Dose Route Start Last Admin Trade Name Freq PRN Reason Stop Dose Admin Acetaminophen 650 mg 06/09/21 00:58 Acetaminophen 650 Mg Suppository RECTAL Q4H PRN Fever Artificial Tears 1 drop 06/09/21 00:59 Artificial Tears Ophth Soln 15 Ml Bottle EACH EYE QID PRN Dry Eye(s) Bisacodyl 10 mg 06/09/21 00:58 Bisacodyl 10 Mg Suppository RECTAL QAM PRN Constipation Glycopyrrolate 0.1 mg 06/09/21 01:00 06/14/21 14:53 Glycopyrrolate Inj (*Sp) 0.2 Mg/Ml Vial IV PUSH 0.1 mg Q4H PRN Administration INCREASED SECRETIONS Morphine Sulfate 50 mg/ Sodium 100 mls @ 2 mls/hr 06/14/21 12:00 06/16/21 15:03 Chloride IV CONT 1 mg/hr .Q24H CARLOS 2 mls/hr Administration 1 MG/HR Lorazepam 1 mg 06/09/21 00:57 06/14/21 14:55 Lorazepam Inj (*Crx) 2 Mg/Ml Vial IV PUSH 1 mg Q4H PRN Administration Anxiety Morphine Sulfate 2 mg 06/09/21 00:56 Morphine Sulfate (*Crx) 2 Mg/Ml Inj IV PUSH Q2H PRN Pain or SOB Prochlorperazine Edisylate 10 mg 06/09/21 01:00 Prochlorperazine Edisylate 10 Mg/2 Ml Vial IV PUSH Q4H PRN Nausea And Vomiting Quality VTE Prophylaxis VTE prophylaxis: mechanical ordered
[2021-06-17] MEDS: MORPHINE SULFATE INJ (*CRX) 50 MG in SODIUM CHLORIDE 0.9% IV 95 ML IV CONT (18:56)
[2021-06-17 20:00] VITALS: BP 82/38; PULSE 97; RESP 12; TEMP 37.7; O2SAT 90
--- NOTE | 2021-06-18 13:47 | PM.DDS ---
Discharge Summary Date and Time Date of : 06/18/21 Time of : 06:14 Provider Pronounced By: Hue Brandon RNwhale fisherman Probable Cause of Probable Cause of : ACUTE HYPOXEMIC RESPIRATORY FAILURE DUE TO COVID-19 PNEUMONIA Summary Hospital Course: ADMITTED TO INPATIENT HOSPICE SERVICE DUE TO UNCONTROLLED DYSPNEA. MEDICATIONS WERE TITRATED TO COMFORT PATIENT PEACEFULLY. Additional Data Confirmation of as documented by pronouncing clinician: Pupillary Reflex, Palpable Pulses, Response to Stimuli, Heart Tones and Breath Sounds Name of Provider Notified: Dr. Prem Kenyon Time Provider Notified: 06:50 Provider Requests Autopsy: No Family Requests Autopsy: No Retail Field Merchandiser Notified: Yes Date [facility] Notified of : 06/18/21 Time [facility] Notified of : 06:42
== END 2021-06-18 06:14 | disposition expired | DRG 951 ==
PROVIDERS: Internal Medicine; Admitting Provider Internal Medicine; PCP Nurse Practitioner Adult Health; Visit Provider Internal Medicine
DX: Z51.5 Encounter for palliative care (principal); U07.1 COVID-19; J12.82 Pneumonia due to coronavirus disease 2019; J96.01 Acute respiratory failure with hypoxia; D69.3 Immune thrombocytopenic purpura; D64.9 Anemia, unspecified; F03.90 Unspecified dementia, unspecified severity, without behavioral disturbance, psychotic disturbance, mood disturbance, and anxiety; E03.9 Hypothyroidism, unspecified; G20 Parkinson's disease; E11.9 Type 2 diabetes mellitus without complications; Z66 Do not resuscitate
CPT/HCPCS: 36415; 83605; A9270; J2060; J2270